=== PATIENT | male | born 1980 | race Caucasian/White ===

== ENCOUNTER 2018-12-04 11:02 | Emergency (ER) | payer BC, SELFPAY ==
[2018-12-04 11:03] VITALS: BP 156/106; PULSE 78; RESP 16; TEMP 36.7; O2SAT 99; BMI 31.4
--- NOTE | 2018-12-04 11:22 | EKG12_ITS ---
Test Reason : SYNCOPE Blood Pressure : / mmHG Vent. Rate : 079 BPM Atrial Rate : 079 BPM P-R Int : 148 ms QRS Dur : 096 ms QT Int : 382 ms P-R-T Axes : 030 031 008 degrees QTc Int : 438 ms Normal sinus rhythm Normal ECG Confirmed by MARTY EVANS ([id number]), digital editor CHANTALE UTBBS ([id number] on 12/09/2018 2:00:12 PM Referred By: LELAND Confirmed By:PALOMA EVANS
--- NOTE | 2018-12-04 11:32 | ED.VIS.GEN ---
History of Present Illness Chief Complaint: Syncope Informant: Patient Onset: Today Context: Sudden Onset Timing: Intermittent Quality: Near syncope Location: Work Current Severity: Mild Maximum Severity: Moderate Worsened by: Apparently nothing Relieved by: Nothing Associated Symptoms: Lightheaded, total body paresthesia and cramping left and right hand Narrative: Patient is a 38-year-old male with history of hypertension. He was prescribed an antihypertensive med which he discontinued since it was recalled. He was not restarted on new hypertensive med. He states he was in clean room. And walked out because he had to use the restroom, urinate. He became lightheaded had total body numbness followed by cramping of his right and left hand. Went to nurses station. Paramedics were called he was brought to the emergency department. Upon further questioning he reports indigestion/heartburn which is associated with eating spicy food. He denied headache, visual, ocular auditory symptoms. No trouble with speech or swallowing. Denies chest discomfort. He states he felt his heart pounding. He denies shortness of breath, difficulty breathing. He states he thought he may not have been getting a complete breath. He denies hematemesis, melena hematochezia. He denies history of PE or DVT. He denies leg pain, swelling discoloration. Prior similar symptoms: No Recent Illness/Hospitalization: No - Past Medical History (1) History of hypertension Status: Acute Past Medical History - Allergies and Home Meds Allergies/Adverse Reactions: Allergies bee venom protein (honey bee) Allergy (Verified 12/04/18 11:05) Anaphylaxis levofloxacin [From Levaquin] Allergy (Verified 12/04/18 11:06) Hives peanut Allergy (Verified 12/04/18 11:06) Hives Penicillins Allergy (Verified 12/04/18 11:05) Anaphylaxis shellfish derived Allergy (Verified 12/04/18 11:06) Hives Primary Care Physician: Buck Gipson, RECONCILIATION MACHINE OPERATOR-C [NON-STAFF] - Past Medical History: - - Hypertension Surgical History: no surgical history Lives: Spouse/ Significant Other Smoking Status: Former smoker Alcohol: Rare Review of Systems General: Denies: Chills, Fever, Sweats Eyes: Denies: Visual changes - bilaterally, Blurred Vision - bilaterally, Diplopia ENT: Denies: Rhinorrhea, Sore throat Cardiovascular: Denies: Chest pain, Palpitations Respiratory: Denies: Dyspnea, Cough, Dyspnea on exertion, Orthopnea, Paroxysmal nocturnal dyspnea Gastrointestinal: Denies: Abdominal pain, Nausea, Vomiting, Diarrhea, Melena, Hematochezia Genitourinary: Denies: Dysuria, Hematuria, Frequency Musculoskeletal: Denies: Back pain, Extremity Pain Skin: Denies: Rash, Abscess, Abrasions, Wounds Neurological: Reports: Weakness, Parasthesia. Denies: Headache, Numbness, -, - Psych: Reports: Anxiety. Denies: Depression Allergy: Denies: Uticaria, Swelling of the mouth Physical Exam Vital Signs/Narrative: Vital Signs Temp Pulse Resp BP Pulse Ox 12/04/18 11:03 98.1 F 78 16 156/106 H 99 Inital Vital Signs reviewed: Yes General: Well nourished, Well developed, No Acute Distress Head: Normocephalic, Atraumatic Eyes: Perrl, EOMI ENT: Moist mucous membranes, No rhinorrhea Neck: Supple, Nontender Cardiovascular: Regular rate, Regular rhythm, No murmurs, Normal S1, Normal S2 Respiratory: No distress, CTA bilaterally, Chest nontender Abdomen: Soft, Nontender, Nondistended, Normal bowel sounds Back: Nontender, Normal Inspection Extremities: Nontender, No edema, - - There is no asymmetry, swelling, discoloration, leg vein distention, palpable cords or tenderness along the distribution of the deep venous system. Skin: Normal color, No rash, No Trauma. Negative for: Cyanosis, Jaundice Neurological: Alert, Oriented x3, Cranial nerves II-XII grossly intact, Normal Strength, Normal Sensation Psychological: Normal affect, Normal Mood Diagnostic/Tx/Re-eval Laboratory Results 12/04/18 11:10 Troponin I < 0.015 - Rhythm Strip Rhythm Strip: Sinus Rhythm Rate: 76 Ectopy: None - Medical Decision Making Patient was placed on monitor and reveals a normal sinus rhythm with no ectopy. EKG was obtained to assess for ischemia or evidence of preexcitation syndrome. Because he complained of heartburn over the past week we will obtain troponin for atypical presentation of cardiac ischemia. Differential vasovagal near syncope, anxiety reaction, dysrhythmia and cardiac ischemia. Suspect heartburn is secondary to gastric etiology. With normal EKG, normal vital signs, normal troponin and PERC negative work-up for pulmonary embolus was not undertaken. Since EKG is normal troponin is normal no further work-up is needed for this presentation. Based on patient's description of total body paresthesia with cramping of his hands i.e. carpal spasm suspect he was hyperventilating. He does report he was anxious when this occurred. ED Disposition - Plan for ED Patient: Disposition: Home or Assisted Living Diagnosis: Syncope, near, Hyperventilation syndrome Instructions: ED Near Syncope Unkn Referrals: Buck Gipson NP-C [NON-STAFF] - 3-5 Days
[2018-12-04 12:26] VITALS: BP 140/100; PULSE 78; RESP 17; O2SAT 99
== END 2018-12-04 12:27 | disposition home or self-care (01) ==
PROVIDERS: Emergency Provider Emergency Medicine
DX: R55 Syncope and collapse (principal); F45.8 Other somatoform disorders; I10 Essential (primary) hypertension; Z87.891 Personal history of nicotine dependence
CPT/HCPCS: 84484; 93005; 99285; J7030; A4216

== ENCOUNTER 2018-12-11 18:19 | Observation (INO) | payer BC, SELFPAY ==
[2018-12-11 18:20] VITALS: BP 177/106; PULSE 89; RESP 17; TEMP 37.7; O2SAT 94; BMI 31.4
[2018-12-11 18:31] VITALS: O2SAT 100
--- NOTE | 2018-12-11 19:00 | CT_ITS ---
STUDY: CT BRAIN WITHOUT CONTRAST REASON FOR EXAM: Male, 38 years old. Dizziness. Chest pain. RADIATION DOSAGE (If Supplied By Facility): CTDIvol = ( 44.99 ) mGy, DLP = ( 762.36 ) mGycm TECHNIQUE: Transaxial CT imaging of the brain was performed without administration of intravenous contrast material. Individualized dose optimization techniques were used for this CT. COMPARISON: No relevant priors. FINDINGS: Normal soft tissue structures. Normal calvarium. Normal size ventricles and extra-axial spaces for the patient's age. Normal white matter tracts of the cerebral hemispheres. Normal basal ganglia and thalami. Normal brainstem. Normal cerebellum. There is no intracranial hemorrhage. There are no findings of an acute ischemic infarction. Normal visualized paranasal sinuses. CT/Brain/Head without Contrast IMPRESSION: Normal unenhanced CT scan of the brain. Electronically Signed: Prasanna Babb DO at 19:46 EDT Tel [phone], Service support ,
--- NOTE | 2018-12-11 19:01 | EKG12_ITS ---
Test Reason : PALPITATIONS Blood Pressure : / mmHG Vent. Rate : 075 BPM Atrial Rate : 075 BPM P-R Int : 144 ms QRS Dur : 096 ms QT Int : 374 ms P-R-T Axes : 032 035 016 degrees QTc Int : 417 ms Normal sinus rhythm Normal ECG Confirmed by MACARENA GAMEZ ([id number]), newspaper copy editor MARITA JEAN BAPTISTE ([id number]) on 12/16/2018 2:11:15 PM Referred By: Fernando Velazquez Confirmed By:MACARENA GAMEZ
--- NOTE | 2018-12-11 19:20 | RAD_ITS ---
STUDY: X-RAY CHEST REASON FOR EXAM: Male, 38 years old. Shortness of breath TECHNIQUE: Single AP portable view of the chest. COMPARISON: None. FINDINGS: The lungs are clear and expanded. There is no demonstrated pleural abnormality. Normal size heart. Normal mediastinum and sky. Normal visualized pulmonary arteries. Normal visualized aortic arch and descending thoracic aorta. Normal visualized thoracic spine. Normal visualized ribs, clavicles, and shoulders. There is no demonstrated abnormality of the visualized soft tissue structures of the upper abdomen. RAD/Chest 1 View (Portable) IMPRESSION: Normal x-ray examination of the chest. Electronically Signed: Suzie Rivers MD at 19:33 EDT , Service support ,
[2018-12-11 19:28] LABS: Anion Gap 9 (5-15); BUN 10 mg/dL (7-18); BUN/Creat Ratio 8.6 RATIO (10-20); Calcium,Total 9.2 mg/dL (8.5-10.1); Chloride 103 mmol/L (98-107); Creatinine, Serum 1.16 mg/dL (0.70-1.30); EST Glomerular Filtration Rate 74 mL/min (>60); Est Glom Filt Rate - Afr Amer 89 mL/min (>60); Estimated Creatinine Clearance 92.91 ml/min; Glucose 105 mg/dL (74-106); Potassium 3.8 mmol/L (3.5-5.1); Sodium Level 139 mmol/L (136-145)
[2018-12-11 20:00] LABS: Absolute Lymphocyte Count 1.77 X10^3/ul (0.83-4.51); Absolute Neutrophil Count 5.4 X10^3/uL (2.0-7.7); Basophil# 0.02 X10^3/uL; Basophil% 0.3 % (0-1); Eosinophil# 0.07 X10^3/uL; Eosinophils% 0.9 % (0-5); Hematocrit 47.9 % (40-54); Hemoglobin 16.6 g/dl (13.0-16.5); Lymphocyte # 1.77 X10^3/ul (4.0); Lymphocyte % 22.3 % (19-41); Mean Corp Hgb Conc 34.7 g/gl (32-36); Mean Corpuscular Hgb 30.6 pg (27.0-32.0); Mean Corpuscular Volume 88.4 fL (80-94); Mean Platelet Vol. 10.8 fl (6.2-12.0); Monocyte# 0.68 X10^3/uL; Monocyte% 8.6 % (0-10); Neutrophil # 5.37 X10^3/uL (2.7-7.7); Neutrophil % 67.8 % (47-70); Platelet Count 257 K/mm3 (150-450); RBC Distribution Width CV 13.1 % (11.6-14.6); RBC Distribution Width SD 42.1 fl (35.1-43.9); Red Blood Count 5.42 M/mm3 (4.6-6.2); White Blood Count 7.9 K/mm3 (4.4-11.0)
[2018-12-11 20:01] LABS: POSITIVE COUNT NO; POSITIVE DIFFERENTIAL NO; POSITIVE MORPHOLOGY NO
[2018-12-11 20:08] LABS: D-Dimer Quantitative (DVT/PE) 0.27 FEU/ug/m (0.27-0.49)
[2018-12-11 20:21] VITALS: BP 151/97; PULSE 86; RESP 17; O2SAT 97
--- NOTE | 2018-12-11 20:39 | PCM.HP.STD ---
Problem List (1) Chest pain Status: Acute Qualifiers: Chest pain type: unspecified Qualified Code(s): R07.9 - Chest pain, unspecified (2) Dysphagia Status: Chronic Qualifiers: Dysphagia type: unspecified Qualified Code(s): R13.10 - Dysphagia, unspecified (3) Allergic rhinitis Status: Suspected Qualifiers: Allergic rhinitis trigger: unspecified Allergic rhinitis seasonality: unspecified Qualified Code(s): J30.9 - Allergic rhinitis, unspecified (4) Allergic sinusitis Status: Suspected (5) ETOH abuse Status: Chronic (6) Anxiety and depression Status: Suspected (7) GERD (gastroesophageal reflux disease) Status: Chronic Qualifiers: Esophagitis presence: esophagitis presence not specified Qualified Code(s): K21.9 - Gastro-esophageal reflux disease without esophagitis History of Present Illness Date of Admission: 12/11/18 Chief Complaint: Palpitations, paresthesias, dyspnea. The patient is a 38 y/o M w/ PMHx: Obesity, HTN, GERD, Chronic dysphagia w/ prior endoscopies per Dr. Nevarez w/ suspected GERD as etiology but ongoing issues and noted history of notable post-nasal drip, frequent heavy drip at night, frequent need to clear his throat secondary to thickened secretions, congestion, sore throat, ETOH Abuse, admitted Anxiety and suspected Depression who presents to the [facility] ED on 12/11/18 with history of sneezing fit at approximately 11 AM while off loading approximate 15 pound boxes, noted sneeze at least 5 times with following this onset of posterior back discomfort described as a tightness between the shoulder blades which then radiated around to the left side of the chest with an anxious feeling and a sensation that he could not touch his breath with some mild paresthesias to that side to the upper extremity which he noted was not a discomfort could not quantify. He does state that he has been under a lot of stress and has been attempting to find a different position out of the company currently works in. He is frequently had neck strain and discomfort and his alcohol consumption is increased with his current job. Work-up in the ED included T 99.9, heart rate 89, BP initially 177/106--> repeat 151/97, respiratory rate 17, 97% on room air, unremarkable CBC without shift, normal d-dimer, workable BMP, troponin less than 0.015, EKG with SR without acute evidence of ischemia, CT head unremarkable, chest x-ray with no acute cardiopulmonary findings. Hospitalist added stat request for urine drug screen with urine catheterization if necessary. No medications were administered in the ED. Past Medical History Past Medical History (Chronic Problems): Chronic Problems Dysphagia (Chronic) ETOH abuse (Chronic) GERD (gastroesophageal reflux disease) (Chronic) Allergies bee venom protein (honey bee) Allergy (Verified 12/11/18 18:23) Anaphylaxis levofloxacin [From Levaquin] Allergy (Verified 12/11/18 18:23) Hives peanut Allergy (Verified 12/11/18 18:23) Hives Penicillins Allergy (Verified 12/11/18 18:23) Anaphylaxis shellfish derived Allergy (Verified 12/11/18 18:23) Hives Home Medications: Ambulatory Orders Medication Instructions Recorded Acetaminophen Liquid [Tylenol 320 mg PO Q4H PRN PRN 12/11/18 Liquid] DiphenhydrAMINE Liquid [Benadryl 10 ml PO BID PRN PRN 12/11/18 Liquid] Valsartan/Hydrochlorothiazide 160 mg PO DAILY 12/11/18 [Valsartan-Hctz 160-12.5 mg Tab] Surgical History: - - Appendectomy, left knee arthroscopic surgery. Psychiatric History: Anxiety, Depression Lives: Spouse/ Significant Other Smoking Status: Never smoker Tobacco Use: Non-smoker Alcohol: Heavy - Patient routinely has several beers to at least 1 bottle of wine sometimes daily. Drugs: None - *Family History Maternal History Items: - - Patient notes a maternal family history of hypertension, diabetes, valvular heart disease status post replacement as well as heavy tobacco use history. Paternal History Items: - - Patient notes a paternal family history of heart disease as well as lung cancer with tobacco use history. Sibling History Items: - - Patient has a brother with history of heart disease with PA at age 47. Review of Systems Constitutional: Reports: Malaise, Fatigue. Denies: Chills, Fever, Weight Change HEENT: Reports: Difficulty Swallowing, Post Nasal Drip, Sinus Congestion, Sinus Drainage, Sore Throat. Denies: Head Aches Cardiovascular: Reports: Chest Pain. Denies: Palpitations Respiratory: Reports: Cough. Denies: Shortness of breath at rest, Sputum production Gastrointestinal: Denies: Abdominal Pain, Nausea, Vomiting Genitourinary: Denies: Dysuria Musculoskeletal: Reports: Neck Pain, Shoulder Pain. Denies: Joint Pain, Joint Tenderness Skin: Denies: Rash, Wounds Neurological: Denies: Numbness, Tingling, Focal weakness Psychiatric: Reports: Anxiety, Depression. Denies: Homicidal Ideations, Suicidal Ideations Hematologic/ Lymphatic: Denies: Easy Bruising, Easy Bleeding VTE Information - Inpt Only VTE Present on Admission: No VTE Mechan Device Prophylaxis: SCD's VTE Pharm Prophylaxis ordered?: Yes Patient Problems: Active and Suspected Problems Chest pain (Acute) Allergic rhinitis (Suspected) Allergic sinusitis (Suspected) Anxiety and depression (Suspected) Subjective: Seated upright in the ED, fatigued appearance, no current chest discomfort, from discussions a myriad of complaints stemming from displeasure in his job with anxiety depression. Objective: Physical Examination: General: awake, alert, oriented x 3 and cooperative, seated upright in the ED bed in no apparent distress. Skin: normal color, turgor, no icterus, cyanosis. HEENT: AT/NC, EOMI, PERRLA, MMM, notable posterior oropharynx irritation, stippling, postnasal drip evident, no carotid bruits or JVD noted, neck strain. Lungs: CTA bilaterally, moderate effort, mild decrease BL bases, no rales, ronchi or wheezing. Heart: Regular rate and rhythm; no gallop, rub audible. Abdomen: soft, NTTP, ND, normal BS, no HSM. Extremities: no cyanosis, clubbing, or edema. Neurological: patient awake, alert, oriented x 3; cognitive function intact; pupils equally reactive to light and accomodation; cranial nerves II-XII grossly normal, moving all 4 extremities, no focal deficits, strength mildly globally decreased. Psychiatric: affect appears, fatigued, admission of depression and anxiety, no suicidal ideations. - Physical Exam Vital Signs Temp Pulse Resp BP Pulse Ox 99.9 F H 86 17 151/97 H 97 12/11/18 18:20 12/11/18 20:21 12/11/18 20:21 12/11/18 20:21 12/11/18 20:21 Oxygen Delivery Method Room Air Weight: 231 lb 14.821 oz Body Mass Index (BMI) 31.4 Laboratory Tests Past 24 Hrs 12/11/18 12/11/18 12/11/18 18:25 18:25 18:25 WBC 7.9 RBC 5.42 Hgb 16.6 H Hct 47.9 MCV 88.4 MCH 30.6 MCHC 34.7 RDW 13.1 RDW Differential 42.1 Plt Count 257 MPV 10.8 Immature Gran % (Auto) 0.100 Neut % (Auto) 67.8 Lymph % (Auto) 22.3 [place] % (Auto) 8.6 Eos % (Auto) 0.9 Baso % (Auto) 0.3 Absolute Neuts (auto) 5.4 Absolute Lymphs (auto) 1.77 Total Counted Not Reportable D-Dimer Quant (PE/DVT) 0.27 Sodium 139 Potassium 3.8 Chloride 103 Carbon Dioxide 27.0 Anion Gap 9 BUN 10 Creatinine 1.16 Estim Creat Clear Calc 92.91 Est GFR (MDRD) Af Amer 89 Est GFR (MDRD) Non-Af 74 BUN/Creatinine Ratio 8.6 L Glucose 105 Calcium 9.2 Troponin I < 0.015 Assessment/Plan All Active Problems History of hypertension (Acute) Chest pain (Acute) The patient is a 38 y/o M w/ PMHx: Obesity, HTN, GERD, Chronic dysphagia w/ prior endoscopies per Dr. Nevarez w/ suspected GERD as etiology but ongoing issues and noted history of notable post-nasal drip, frequent heavy drip at night, frequent need to clear his throat secondary to thickened secretions, congestion, sore throat, ETOH Abuse, admitted Anxiety and suspected Depression who presents to the [facility] ED on 12/11/18 with history of sneezing fit at approximately 11 AM while off loading approximate 15 pound boxes, noted sneeze at least 5 times with following this onset of posterior back discomfort described as a tightness between the shoulder blades which then radiated around to the left side of the chest with an anxious feeling and a sensation that he could not touch his breath with some mild paresthesias to that side to the upper extremity which he noted was not a discomfort could not quantify. (1) Chest Pain, Atypical: Work-up in the ED included T 99.9, heart rate 89, BP initially 177/106--> repeat 151/97, respiratory rate 17, 97% on room air, unremarkable CBC without shift, normal d-dimer, workable BMP, troponin less than 0.015, EKG with SR without acute evidence of ischemia, CT head unremarkable, chest x-ray with no acute cardiopulmonary findings. Will admit to PCU, place on a monitored bed to assure no acute myocardial infarction with serial cardiac enzymes and EKGs. If cardiac enzymes and repeat EKG is unremarkable we will pursue a.m. cardiac echo stress testing. NG, morphine. ASA allergy, defer trial plavix as notes severe reaction history to several agents. Low suspicion for actual cardiac etiology. (2) Chronic dysphagia suspected secondary to combination of GERD as well as uncontrolled allergic rhinitis/sinusitis: Notable post nasal drip visualized with stippling posterior oropharynx, will place on Claritin as well as ipratropium nasal inhalation with recommendation to follow-up with primary care physician for continued aggressive care. Speech therapy consulted. Will transition to modified diet in interim. (3) EtOH Abuse: Patient notes routine consumption of several beers to at least one bottle of wine more frequently than not daily. Discussed appropriate alcohol intake. Case management consulted for alcohol abuse he would also benefit from discussions for counseling will maintain on CIWA protocol, MVI, thiamine and folic acid. Mag and phosphorus levels requested. (4) Anxiety and Depression, suspected: Discussions patient depressive mood, anxious, very unhappy with his work, currently searching for other job, discussed healthy mannerisms to deal with these situations and is noted consultation with case management pending with need for alcohol intake counseling as well as therapy counseling. (5) Hypertension: Continue home regimen including valsartan, hydrochlorothiazide, PRN hydralazine. (6) GERD: PPI. (7) DVT prophylaxis: SCDs, Lovenox. Code Visit OBSV E&M: [id number] Initial observation care L3
--- NOTE | 2018-12-11 20:57 | ED.VISSUMM ---
- ER Visit Summary Date of Service: 12/11/18 Chief Complaint: Palpitations History of Present Illness: The patient is a 38 M presenting with palpitations. He states this started today suddenly earlier he started having heart racing and feeling like his heart was thumping. He has associated shortness of breath. He states he has chest tightness but no chest pain. He has had a mild cough. He states that his whole body feels numb. He later stated that his right side felt more numb than the left. He is not currently taking his blood pressure medication. Unable to tolerate pills. He recently was advised to crush them but has not started doing this yet. His brother had an [place] at age 47. He is not a smoker. Physical Examination: Vitals are stable. Patient is afebrile. Alert no acute distress. HEENT exam is unremarkable. Neck is supple. Lungs are clear and equal bilaterally. Heart is regular rate and rhythm. Abdomen is soft nontender nondistended. Extremities are unremarkable. Skin is warm and dry. No focal neurologic deficit. NIH 0 Remainder of exam is unremarkable. Emergency Department Course and Treatment: EKG is sinus rate of 75 with no acute ischemic changes. Chest x-ray shows no acute process. CT head shows no acute process. CBC, chemistries unremarkable. Troponin is negative. D-dimer negative. Discussed with the hospitalist for observation. Disposition: Observation Impression: Palpitations, dyspnea This note was generated with [employer] dictation software. It may contain incorrect words, spelling, and punctuation that were not noted in review of the chart prior to signing ED Disposition - Plan for ED Patient: Referrals: Buck Cardenas MD [Primary Care Provider] -
--- NOTE | 2018-12-11 21:00 | ED.DCSUM_ITS ---
- ER Visit Summary Date of Service: 12/11/18 Chief Complaint: Palpitations History of Present Illness: The patient is a 38 M presenting with palpitations. He states this started today suddenly earlier he started having heart racing and feeling like his heart was thumping. He has associated shortness of breath. He states he has chest tightness but no chest pain. He has had a mild cough. He states that his whole body feels numb. He later stated that his right side felt more numb than the left. He is not currently taking his blood pressure medication. Unable to tolerate pills. He recently was advised to crush them but has not started doing this yet. His brother had an [place] at age 47. He is not a smoker. Physical Examination: Vitals are stable. Patient is afebrile. Alert no acute distress. HEENT exam is unremarkable. Neck is supple. Lungs are clear and equal bilaterally. Heart is regular rate and rhythm. Abdomen is soft nontender nondistended. Extremities are unremarkable. Skin is warm and dry. No focal neurologic deficit. NIH 0 Remainder of exam is unremarkable. Emergency Department Course and Treatment: EKG is sinus rate of 75 with no acute ischemic changes. Chest x-ray shows no acute process. CT head shows no acute process. CBC, chemistries unremarkable. Troponin is negative. D-dimer negative. Discussed with the hospitalist for observation. Disposition: Observation Impression: Palpitations, dyspnea This note was generated with [employer] dictation software. It may contain incorrect words, spelling, and punctuation that were not noted in review of the chart prior to signing ED Disposition - Plan for ED Patient: Referrals: Buck Cardenas MD [Primary Care Provider] -
[2018-12-11 21:15] VITALS: BP 157/95; PULSE 88; RESP 11; O2SAT 97
[2018-12-11] MEDS: Aspirin 325 MG Tablet PO (21:21)
[2018-12-11 22:00] VITALS: PULSE 89
--- NOTE | 2018-12-11 22:05 | EKG12_ITS ---
Test Reason : MORNING EKG Blood Pressure : / mmHG Vent. Rate : 070 BPM Atrial Rate : 070 BPM P-R Int : 154 ms QRS Dur : 096 ms QT Int : 406 ms P-R-T Axes : 033 034 017 degrees QTc Int : 438 ms Normal sinus rhythm Normal ECG When compared with ECG of 11-DEC-2018 23:29, MANUAL COMPARISON REQUIRED, DATA IS UNCONFIRMED Confirmed by MARTY EVANS ([id number]), editorial intern MARITA JEAN BAPTISTE ([id number]) on 12/16/2018 2:23:42 PM Referred By: MELVIN Confirmed By:PALOMA EVANS
[2018-12-11 22:30] VITALS: BMI 29.9
[2018-12-11 22:36] LABS: Magnesium 2.2 mg/dL (1.6-2.6)
[2018-12-11 22:39] VITALS: BP 156/90; PULSE 94; RESP 18; TEMP 37.5; O2SAT 97
[2018-12-11] MEDS: 0.9% Normal Saline 1,000 ML 100 ML IV (23:20)
[2018-12-11] MEDS: Ipratropium Bromide 0.06% NASAL SPRAY 2 SPRAY NASAL (23:21)
[2018-12-11] MEDS: Pantoprazole Sodium 40 MG Tablet PO (23:31)
[2018-12-11] MEDS: Loratadine 10 MG Tablet PO (23:31)
[2018-12-11] MEDS: Na Biphos/Potassium Phosphate PACKET 1 PACKET PO (23:32)
[2018-12-12 00:46] LABS: Amphetamine Urine VISTA NEGATIVE (<1000 ng/mL); Barbiturate Urine VISTA NEGATIVE (< 200 ng/mL); Benzodiazepine Urine VISTA NEGATIVE (< 200 ng/mL); Cocaine Urine VISTA NEGATIVE (< 300 ng/mL); Ecstacy Urine VISTA NEGATIVE (< 500 ng/mL); Methadone Urine VISTA NEGATIVE (< 300 ng/mL); PCP Urine VISTA NEGATIVE (< 25 ng/mL); THC Urine VISTA NEGATIVE (< 50 ng/mL); Vista UDS pH Range 8
[2018-12-12 02:10] LABS: Hematocrit 46.3 % (40-54); Hemoglobin 15.8 g/dl (13.0-16.5); Mean Corp Hgb Conc 34.1 g/gl (32-36); Mean Corpuscular Hgb 29.5 pg (27.0-32.0); Mean Corpuscular Volume 86.5 fL (80-94); Mean Platelet Vol. 10.5 fl (6.2-12.0); Platelet Count 241 K/mm3 (150-450); RBC Distribution Width CV 13.2 % (11.6-14.6); RBC Distribution Width SD 41.8 fl (35.1-43.9); Red Blood Count 5.35 M/mm3 (4.6-6.2); White Blood Count 9.3 K/mm3 (4.4-11.0)
[2018-12-12 02:11] LABS: Scan Indicated on CBC? Y/N NO
[2018-12-12 02:17] LABS: International Normalized Ratio 1.1; Prothrombin Time (Protime)PT. 13.5 SECONDS (11.7-14.9)
[2018-12-12 02:18] LABS: Partial Thromboplast Time 29.6 Seconds (24.1-36.2)
[2018-12-12 02:50] LABS: ALB/GLOB Ratio 1.2 RATIO (0.9-2.4); AST(SGOT) 20 U/L (15-37); Alanine Aminotransfer ALT/SGPT 45 U/L (16-61); Albumin, Serum 3.8 g/dL (3.2-5.0); Alkaline Phosphatase 59 U/L (45-117); Anion Gap 7 (5-15); BUN 9 mg/dL (7-18); BUN/Creat Ratio 7.4 RATIO (10-20); Calcium,Total 8.3 mg/dL (8.5-10.1); Chloride 105 mmol/L (98-107); Cholesterol 228 mg/dL (200); Creatinine, Serum 1.21 mg/dL (0.70-1.30); EST Glomerular Filtration Rate 70 mL/min (>60); Est Glom Filt Rate - Afr Amer 85 mL/min (>60); Estimated Creatinine Clearance 89.07 ml/min; Globulin 3.3 g/dL (2.2-4.2); Glucose 103 mg/dL (74-106); High Density Lipoprotein 36 mg/dL; Protein, Total 7.1 g/dL (6.4-8.2); Sodium Level 139 mmol/L (136-145); T4 Free Direct 0.97 ng/dL (0.76-1.46); Thyroid Stim Hormone (TSH) 2.12 uIU/mL (0.358-3.74); Triglycerides 376 mg/dL; Very Low Density Lipoprotein 75 mg/dL (5-40)
[2018-12-12 03:00] VITALS: PULSE 64
[2018-12-12 04:27] VITALS: BP 135/88; PULSE 68; RESP 18; TEMP 36.8; O2SAT 98
[2018-12-12 05:40] VITALS: BP 157/88; PULSE 69; RESP 18; TEMP 36.7; O2SAT 97
[2018-12-12] MEDS: Ipratropium Bromide 0.06% NASAL SPRAY 2 SPRAY NASAL ×2 (05:44→13:48)
[2018-12-12] MEDS: Losartan Potassium 50 MG Tablet PO ×2 (05:44→05:48)
[2018-12-12] MEDS: Pantoprazole Sodium 40 MG Tablet PO ×2 (05:44→05:48)
--- NOTE | 2018-12-12 05:55 | EKG12_ITS ---
Test Reason : CP ADMIT Blood Pressure : / mmHG Vent. Rate : 079 BPM Atrial Rate : 079 BPM P-R Int : 152 ms QRS Dur : 094 ms QT Int : 392 ms P-R-T Axes : 035 039 009 degrees QTc Int : 449 ms Normal sinus rhythm Normal ECG When compared with ECG of 11-DEC-2018 18:26, MANUAL COMPARISON REQUIRED, DATA IS UNCONFIRMED Confirmed by MARTY EVANS ([id number]), web content editor MARITA JEAN BAPTISTE ([id number]) on 12/16/2018 2:24:27 PM Referred By: DR CHARLES Confirmed By:PALOMA EVANS
[2018-12-12 07:20] VITALS: PULSE 70
[2018-12-12 07:55] VITALS: O2SAT 98
--- NOTE | 2018-12-12 08:31 | NURSING ---
Patient to stress test at 0805.
[2018-12-12 09:28] VITALS: BP 147/89; PULSE 79; RESP 16; TEMP 36.8; O2SAT 95
[2018-12-12] MEDS: Thiamine Hydrochloride 100 MG Tablet PO (09:36)
[2018-12-12] MEDS: Multivitamins,Ther W-Minerals Tablet 1 TABLET PO (09:36)
[2018-12-12] MEDS: Folic Acid 1 MG Tablet PO (09:37)
[2018-12-12] MEDS: hydroCHLOROthiazide 12.5mg 12.5 MG PO (09:37)
[2018-12-12] MEDS: Loratadine 10 MG Tablet PO (09:37)
[2018-12-12] MEDS: Na Biphos/Potassium Phosphate PACKET 1 PACKET PO ×2 (09:38→13:50)
[2018-12-12] MEDS: 0.9% Normal Saline 1,000 ML 100 ML IV (09:44)
--- NOTE | 2018-12-12 11:31 | DCINST_ITS ---
- Discharge Diagnoses Current Active Problems: Current Active and Chronic Problems Chest pain (Acute) Dysphagia (Chronic) ETOH abuse (Chronic) GERD (gastroesophageal reflux disease) (Chronic) You will use the following diet at home:: Calorie/Carbohydrate Controlled (specify 1200, 1400, etc), Cardiac Discharge Activity: Return to Normal Activity Call your doctor if you observe: Shortness of breath, Dizziness, Fainting spells, Chest pain Allergies/Adverse Reactions: Allergies aspirin Allergy (Verified 12/11/18 21:22) Rash bee venom protein (honey bee) Allergy (Verified 12/11/18 18:23) Anaphylaxis levofloxacin [From Levaquin] Allergy (Verified 12/11/18 18:23) Hives peanut Allergy (Verified 12/11/18 18:23) Hives Penicillins Allergy (Verified 12/11/18 18:23) Anaphylaxis shellfish derived Allergy (Verified 12/11/18 18:23) Hives Medications to take at Discharge Acetaminophen Liquid [Tylenol Liquid] 320 mg PO Q4H PRN PRN 12/11/18 Valsartan/Hydrochlorothiazide [Valsartan-Hctz 160-12.5 mg Tab] 160 mg PO DAILY 12/11/18 Atorvastatin Calcium [Lipitor] 40 mg PO QHS #30 tablet 12/12/18 Ipratropium [place] 0.06% [ATROVENT NASAL SPRAY] 2 spray NASAL TID #1 nasal.sry 12/12/18 Loratadine [Claritin] 10 mg PO DAILY #30 tablet 12/12/18 The following prescriptions were given: Atorvastatin Calcium [Lipitor] 40 mg PO QHS #30 tablet Loratadine [Claritin] 10 mg PO DAILY #30 tablet Ipratropium [place] 0.06% [ATROVENT NASAL SPRAY] 2 spray NASAL TID #1 nasal.sry Orders to be completed after discharge: Cardiac Holter Monitor, Set-Up [[facility]] Location: None Selected Primary Care Physician: Buck Cardenas MD [Primary Care Provider] - Please follow up with your Primary Care Physician in: 1 Week Test Results: Test results from this visit will be discussed in further detail at your follow- up appointment, if applicable. Proposed Discharge Date: 12/12/18
--- NOTE | 2018-12-12 11:36 | DS.PCM_ITS ---
<Sigrid Limon - Last Filed: 12/12/18 11:54> Discharge Date and Diagnosis Date of Admission: 12/11/18 Date of Discharge: 12/12/18 - Primary Discharge Diagnosis Active and Suspected Problems 1. Chest pain, ACS ruled out 2. Chronic dysphagia, suspected secondary to GERD and allergic rhinitis 3. Hyperlipidemia 4. Hypertension 5. Suspected anxiety, depression 6. EtOH abuse 7. GERD - Secondary Discharge Diagnosis Chronic Problems Dysphagia (Chronic) ETOH abuse (Chronic) GERD (gastroesophageal reflux disease) (Chronic) Hospital Course and Treatment Imaging Results: Diagnostic Data Brain CT 12/11/18 19:00 IMPRESSION: Normal unenhanced CT scan of the brain. Electronically Signed: Prasanna Babb DO at 19:46 EDT Tel [phone], Service support , Chest X-Ray 12/11/18 19:20 IMPRESSION: Normal x-ray examination of the chest. Electronically Signed: Suzie Rivers MD at 19:33 EDT , Service support , Operations: None Procedures: - - Stress echo Summary of Care Provided: The patient is a 38 year old M admitted 12/11/2018 due to palpitations, atypical chest pain. 1. Chest pain, ACS ruled out-brain CT normal. Chest x-ray unremarkable. Troponin negative. EKG without ST-T changes. Patient underwent a stress echo which was negative for ischemia. Patient reports palpitations ongoing for the past several weeks. Telemetry without arrhythmias. Discharge on 24-hour Holter monitor, results to be sent to primary care physician. Suspect presenting symptoms due to anxiety as patient reports stress related to job. Follow-up with primary care physician in 1 week. 2. Chronic dysphagia, suspected secondary to GERD and allergic rhinitis- ST eval. Initiate PPI. Prior EGD with GI. Outpatient follow-up with GI if recurrent problems. 3. Hyperlipidemia-initiated on statin. Recommend repeat lipid panel in 4 to 6 weeks by primary care provider. 4. Hypertension-stable, continue valsartan/HCTZ regimen. 5. Suspected anxiety, depression-recommend follow-up with primary care physician to discuss medication regimen, outpatient counseling. 6. EtOH abuse-encourage alcohol cessation. 7. GERD-initiated on PPI. Patient seen and examined prior to discharge. Physical assessment as noted below. Patient is stable for discharge with follow up recommendations as noted above. This patient was seen by LILIBETH Mcknight under the supervision of Dr. Velazquez. - Physical Exam General: Alert, Oriented x3, Cooperative HEENT: Atraumatic, PERRLA, EOMI, Normocephalic Neck: Supple, No JVD, Negative Carotid Bruits Lungs: Clear to auscultation, Normal air movement Cardiovascular: Regular rate, Regular Rhythm, Normal S1, Normal S2, No murmurs Abdomen: Bowel Sounds Present, Soft, Non Tender, Non-Distended Extremities: No clubbing, No cyanosis, No edema, Capillary Refill Less than 3 Seconds Skin: No rashes, No breakdown Musculoskeletal: No Tenderness to Palpation of Joints or Extremities Lymphatic: No Cervical, Supraclavicular, or Inguinal Adenopathy Neurological: Cranial nerves II-XII grossly intact, Neuro grossly intact Psych/Mental Status: Normal Affect, Appropriate Vital Signs Temp Pulse Resp BP Pulse Ox 98.2 F 79 16 147/89 H 95 12/12/18 09:28 12/12/18 09:28 12/12/18 09:28 12/12/18 09:28 12/12/18 09:28 Oxygen Delivery Method Room Air Weight: 221 lb 5.506 oz Body Mass Index (BMI) 29.9 Intake and Output for Last 24 Hours 12/10/18 12/11/18 12/12/18 23:59 23:59 23:59 Intake Total 867 / 867 Output Total 250 / 250 Balance 617 / 617 Laboratory Tests Past 24 Hrs 12/11/18 12/11/18 12/11/18 18:25 18:25 18:25 WBC 7.9 RBC 5.42 Hgb 16.6 H Hct 47.9 MCV 88.4 MCH 30.6 MCHC 34.7 RDW 13.1 RDW Differential 42.1 Plt Count 257 MPV 10.8 Immature Gran % (Auto) 0.100 Neut % (Auto) 67.8 Lymph % (Auto) 22.3 [place] % (Auto) 8.6 Eos % (Auto) 0.9 Baso % (Auto) 0.3 Absolute Neuts (auto) 5.4 Absolute Lymphs (auto) 1.77 Total Counted Not Reportable PT INR APTT D-Dimer Quant (PE/DVT) 0.27 Sodium 139 Potassium 3.8 Chloride 103 Carbon Dioxide 27.0 Anion Gap 9 BUN 10 Creatinine 1.16 Estim Creat Clear Calc 92.91 Est GFR (MDRD) Af Amer 89 Est GFR (MDRD) Non-Af 74 BUN/Creatinine Ratio 8.6 L Glucose 105 Calcium 9.2 Phosphorus Magnesium Total Bilirubin AST ALT Alkaline Phosphatase Troponin I < 0.015 Total Protein Albumin Globulin Albumin/Globulin Ratio Triglycerides Cholesterol LDL Cholesterol VLDL Cholesterol HDL Cholesterol TSH Free T4 Urine Opiates Screen Urine Methadone Screen Ur Barbiturates Screen Ur Phencyclidine Scrn Ur Amphetamines Screen U Methamphetamin-MDMA U Benzodiazepines Scrn Urine Cocaine Screen U Cannabinoids Screen Ur Drug Screen Comment Ethyl Alcohol 12/11/18 12/11/18 12/11/18 18:25 18:25 22:54 WBC RBC Hgb Hct MCV MCH MCHC RDW RDW Differential Plt Count MPV Immature Gran % (Auto) Neut % (Auto) Lymph % (Auto) [place] % (Auto) Eos % (Auto) Baso % (Auto) Absolute Neuts (auto) Absolute Lymphs (auto) Total Counted PT INR APTT D-Dimer Quant (PE/DVT) Sodium Potassium Chloride Carbon Dioxide Anion Gap BUN Creatinine Estim Creat Clear Calc Est GFR (MDRD) Af Amer Est GFR (MDRD) Non-Af BUN/Creatinine Ratio Glucose Calcium Phosphorus 2.0 L Magnesium 2.2 Total Bilirubin AST ALT Alkaline Phosphatase Troponin I < 0.015 Total Protein Albumin Globulin Albumin/Globulin Ratio Triglycerides Cholesterol LDL Cholesterol VLDL Cholesterol HDL Cholesterol TSH Free T4 Urine Opiates Screen Urine Methadone Screen Ur Barbiturates Screen Ur Phencyclidine Scrn Ur Amphetamines Screen U Methamphetamin-MDMA U Benzodiazepines Scrn Urine Cocaine Screen U Cannabinoids Screen Ur Drug Screen Comment Ethyl Alcohol 9.0 12/11/18 12/12/18 12/12/18 23:50 02:01 02:01 WBC 9.3 RBC 5.35 Hgb 15.8 Hct 46.3 MCV 86.5 MCH 29.5 MCHC 34.1 RDW 13.2 RDW Differential 41.8 Plt Count 241 MPV 10.5 Immature Gran % (Auto) Neut % (Auto) Lymph % (Auto) [place] % (Auto) Eos % (Auto) Baso % (Auto) Absolute Neuts (auto) Absolute Lymphs (auto) Total Counted PT INR APTT D-Dimer Quant (PE/DVT) Sodium 139 Potassium 4.0 Chloride 105 Carbon Dioxide 27.0 Anion Gap 7 BUN 9 Creatinine 1.21 Estim Creat Clear Calc 89.07 Est GFR (MDRD) Af Amer 85 Est GFR (MDRD) Non-Af 70 BUN/Creatinine Ratio 7.4 L Glucose 103 Calcium 8.3 L Phosphorus Magnesium Total Bilirubin 0.50 AST 20 ALT 45 Alkaline Phosphatase 59 Troponin I Total Protein 7.1 Albumin 3.8 Globulin 3.3 Albumin/Globulin Ratio 1.2 Triglycerides 376 H Cholesterol 228 H LDL Cholesterol 117 VLDL Cholesterol 75 H HDL Cholesterol 36 L TSH 2.12 Free T4 0.97 Urine Opiates Screen NEGATIVE Urine Methadone Screen NEGATIVE Ur Barbiturates Screen NEGATIVE Ur Phencyclidine Scrn NEGATIVE Ur Amphetamines Screen NEGATIVE U Methamphetamin-MDMA NEGATIVE U Benzodiazepines Scrn NEGATIVE Urine Cocaine Screen NEGATIVE U Cannabinoids Screen NEGATIVE Ur Drug Screen Comment Ethyl Alcohol 12/12/18 12/12/18 02:01 02:01 WBC RBC Hgb Hct MCV MCH MCHC RDW RDW Differential Plt Count MPV Immature Gran % (Auto) Neut % (Auto) Lymph % (Auto) [place] % (Auto) Eos % (Auto) Baso % (Auto) Absolute Neuts (auto) Absolute Lymphs (auto) Total Counted PT 13.5 INR 1.1 APTT 29.6 D-Dimer Quant (PE/DVT) Sodium Potassium Chloride Carbon Dioxide Anion Gap BUN Creatinine Estim Creat Clear Calc Est GFR (MDRD) Af Amer Est GFR (MDRD) Non-Af BUN/Creatinine Ratio Glucose Calcium Phosphorus Magnesium Total Bilirubin AST ALT Alkaline Phosphatase Troponin I < 0.015 Total Protein Albumin Globulin Albumin/Globulin Ratio Triglycerides Cholesterol LDL Cholesterol VLDL Cholesterol HDL Cholesterol TSH Free T4 Urine Opiates Screen Urine Methadone Screen Ur Barbiturates Screen Ur Phencyclidine Scrn Ur Amphetamines Screen U Methamphetamin-MDMA U Benzodiazepines Scrn Urine Cocaine Screen U Cannabinoids Screen Ur Drug Screen Comment Ethyl Alcohol Discharge Diet: Low fat/ Low Cholesterol Discharge Activity: Return to Normal Activity Call your doctor if you observe: Shortness of breath, Dizziness, Fainting spells, Chest pain Home Medications: Medications to take at Discharge Acetaminophen Liquid [Tylenol Liquid] 320 mg PO Q4H PRN PRN 12/11/18 Valsartan/Hydrochlorothiazide [Valsartan-Hctz 160-12.5 mg Tab] 160 mg PO DAILY 12/11/18 Atorvastatin Calcium [Lipitor] 40 mg PO QHS #30 tablet 12/12/18 Ipratropium [place] 0.06% [ATROVENT NASAL SPRAY] 2 spray NASAL TID #1 nasal.sry 12/12/18 Loratadine [Claritin] 10 mg PO DAILY #30 tablet 12/12/18 Pantoprazole Sodium [Protonix] 40 mg PO DAILY #30 tablet 12/12/18 Following Prescrptions Were Given to Patient: Atorvastatin Calcium [Lipitor] 40 mg PO QHS #30 tablet Loratadine [Claritin] 10 mg PO DAILY #30 tablet Pantoprazole Sodium [Protonix] 40 mg PO DAILY #30 tablet Ipratropium [place] 0.06% [ATROVENT NASAL SPRAY] 2 spray NASAL TID #1 nasal.sry Other Amb Orders: Cardiac Holter Monitor, Set-Up [[facility]] Location: None Selected Primary Care Physician: Buck Cardenas MD [Primary Care Provider] - Please follow up with your Primary Care Physician in: 1 Week Disposition: Home Minutes spent on discharge:: 35 Patient Condition:: Stable Medical Necessity - Tobacco Use Smoking Status: Never smoker Tobacco Use: Non-smoker Meaningful Use Info Meaningful Use Diagnoses (Choose all that apply): None applicable <Fernando Velazquez - Last Filed: 12/12/18 14:48> Discharge Date and Diagnosis - Secondary Discharge Diagnosis Chronic Problems Dysphagia (Chronic) ETOH abuse (Chronic) GERD (gastroesophageal reflux disease) (Chronic) Hospital Course and Treatment Imaging Results: 12/12/18 05:55 Stress Test Echo w/o Contrast [ECHO] Routine Summary of Care Provided: The patient is a 38 year old M with history of chronic dysphagia secondary to GERD and postnasal drip syndrome admitted with chest pain which is mainly localized to upper mid thoracic spine. Patient had fall on his upper back many years ago and gets upper back pain, low intensity once or twice a week but has been more painful in last 3 days. Furthermore, patient also reported ongoing palpitation for several weeks. Telemetry did not show any significant arrhythmia. Patient had stress echo which was negative for stress-induced ischemia as per EKG and echocardiographic criteria. TSH and free T4 normal. Fa sting lipid profile shows elevated triglycerides 376, total cholesterol 228, LDL 117 and low HDL 36. Started on atorvastatin 40 mg daily and advised to repeat fasting profile in 6 weeks. Patient blood pressure also elevated and is on antihypertensive medication, valsartan/HCTZ. Patient has chronic dysphagia and advised to follow-up with GI. Discharge medication reconciliation done. Discharge follow-up instructions completed. Discharge process discussed with the patient and his near the bedside and all questions were answered to patient's satisfaction. - Physical Exam Vital Signs Temp Pulse Resp BP Pulse Ox 98.2 F 79 16 147/89 H 95 12/12/18 09:28 12/12/18 09:28 12/12/18 09:28 12/12/18 09:28 12/12/18 09:28 Oxygen Delivery Method Room Air Weight: 221 lb 5.506 oz Body Mass Index (BMI) 29.9 Intake and Output for Last 24 Hours 12/10/18 12/11/18 12/12/18 23:59 23:59 23:59 Intake Total 1435 / 1435 Output Total 250 / 250 Balance 1185 / 1185 Laboratory Tests Past 24 Hrs 12/11/18 12/11/18 12/11/18 18:25 18:25 18:25 WBC 7.9 RBC 5.42 Hgb 16.6 H Hct 47.9 MCV 88.4 MCH 30.6 MCHC 34.7 RDW 13.1 RDW Differential 42.1 Plt Count 257 MPV 10.8 Immature Gran % (Auto) 0.100 Neut % (Auto) 67.8 Lymph % (Auto) 22.3 [place] % (Auto) 8.6 Eos % (Auto) 0.9 Baso % (Auto) 0.3 Absolute Neuts (auto) 5.4 Absolute Lymphs (auto) 1.77 Total Counted Not Reportable PT INR APTT D-Dimer Quant (PE/DVT) 0.27 Sodium 139 Potassium 3.8 Chloride 103 Carbon Dioxide 27.0 Anion Gap 9 BUN 10 Creatinine 1.16 Estim Creat Clear Calc 92.91 Est GFR (MDRD) Af Amer 89 Est GFR (MDRD) Non-Af 74 BUN/Creatinine Ratio 8.6 L Glucose 105 Calcium 9.2 Phosphorus Magnesium Total Bilirubin AST ALT Alkaline Phosphatase Troponin I < 0.015 Total Protein Albumin Globulin Albumin/Globulin Ratio Triglycerides Cholesterol LDL Cholesterol VLDL Cholesterol HDL Cholesterol TSH Free T4 Urine Opiates Screen Urine Methadone Screen Ur Barbiturates Screen Ur Phencyclidine Scrn Ur Amphetamines Screen U Methamphetamin-MDMA U Benzodiazepines Scrn Urine Cocaine Screen U Cannabinoids Screen Ur Drug Screen Comment Ethyl Alcohol 12/11/18 12/11/18 12/11/18 18:25 18:25 22:54 WBC RBC Hgb Hct MCV MCH MCHC RDW RDW Differential Plt Count MPV Immature Gran % (Auto) Neut % (Auto) Lymph % (Auto) [place] % (Auto) Eos % (Auto) Baso % (Auto) Absolute Neuts (auto) Absolute Lymphs (auto) Total Counted PT INR APTT D-Dimer Quant (PE/DVT) Sodium Potassium Chloride Carbon Dioxide Anion Gap BUN Creatinine Estim Creat Clear Calc Est GFR (MDRD) Af Amer Est GFR (MDRD) Non-Af BUN/Creatinine Ratio Glucose Calcium Phosphorus 2.0 L Magnesium 2.2 Total Bilirubin AST ALT Alkaline Phosphatase Troponin I < 0.015 Total Protein Albumin Globulin Albumin/Globulin Ratio Triglycerides Cholesterol LDL Cholesterol VLDL Cholesterol HDL Cholesterol TSH Free T4 Urine Opiates Screen Urine Methadone Screen Ur Barbiturates Screen Ur Phencyclidine Scrn Ur Amphetamines Screen U Methamphetamin-MDMA U Benzodiazepines Scrn Urine Cocaine Screen U Cannabinoids Screen Ur Drug Screen Comment Ethyl Alcohol 9.0 12/11/18 12/12/18 12/12/18 23:50 02:01 02:01 WBC 9.3 RBC 5.35 Hgb 15.8 Hct 46.3 MCV 86.5 MCH 29.5 MCHC 34.1 RDW 13.2 RDW Differential 41.8 Plt Count 241 MPV 10.5 Immature Gran % (Auto) Neut % (Auto) Lymph % (Auto) [place] % (Auto) Eos % (Auto) Baso % (Auto) Absolute Neuts (auto) Absolute Lymphs (auto) Total Counted PT INR APTT D-Dimer Quant (PE/DVT) Sodium 139 Potassium 4.0 Chloride 105 Carbon Dioxide 27.0 Anion Gap 7 BUN 9 Creatinine 1.21 Estim Creat Clear Calc 89.07 Est GFR (MDRD) Af Amer 85 Est GFR (MDRD) Non-Af 70 BUN/Creatinine Ratio 7.4 L Glucose 103 Calcium 8.3 L Phosphorus Magnesium Total Bilirubin 0.50 AST 20 ALT 45 Alkaline Phosphatase 59 Troponin I Total Protein 7.1 Albumin 3.8 Globulin 3.3 Albumin/Globulin Ratio 1.2 Triglycerides 376 H Cholesterol 228 H LDL Cholesterol 117 VLDL Cholesterol 75 H HDL Cholesterol 36 L TSH 2.12 Free T4 0.97 Urine Opiates Screen NEGATIVE Urine Methadone Screen NEGATIVE Ur Barbiturates Screen NEGATIVE Ur Phencyclidine Scrn NEGATIVE Ur Amphetamines Screen NEGATIVE U Methamphetamin-MDMA NEGATIVE U Benzodiazepines Scrn NEGATIVE Urine Cocaine Screen NEGATIVE U Cannabinoids Screen NEGATIVE Ur Drug Screen Comment Ethyl Alcohol 12/12/18 12/12/18 02:01 02:01 WBC RBC Hgb Hct MCV MCH MCHC RDW RDW Differential Plt Count MPV Immature Gran % (Auto) Neut % (Auto) Lymph % (Auto) [place] % (Auto) Eos % (Auto) Baso % (Auto) Absolute Neuts (auto) Absolute Lymphs (auto) Total Counted PT 13.5 INR 1.1 APTT 29.6 D-Dimer Quant (PE/DVT) Sodium Potassium Chloride Carbon Dioxide Anion Gap BUN Creatinine Estim Creat Clear Calc Est GFR (MDRD) Af Amer Est GFR (MDRD) Non-Af BUN/Creatinine Ratio Glucose Calcium Phosphorus Magnesium Total Bilirubin AST ALT Alkaline Phosphatase Troponin I < 0.015 Total Protein Albumin Globulin Albumin/Globulin Ratio Triglycerides Cholesterol LDL Cholesterol VLDL Cholesterol HDL Cholesterol TSH Free T4 Urine Opiates Screen Urine Methadone Screen Ur Barbiturates Screen Ur Phencyclidine Scrn Ur Amphetamines Screen U Methamphetamin-MDMA U Benzodiazepines Scrn Urine Cocaine Screen U Cannabinoids Screen Ur Drug Screen Comment Ethyl Alcohol Code Visit OBSV E&M: 23419 Observation care discharge
--- NOTE | 2018-12-12 13:15 | CASEMGMT ---
SW met with patient, introduced self and role at [facility]. SW asked if it was okay for SW to talk in front of patient's regarding sensitive information. Patient was okay with this. SW spoke with him about his alcohol use and his current stressors. He was open to SW giving him resources. Tricia HANEY MSW
== END 2018-12-12 11:31 | disposition home or self-care (01) ==
LOC: ED 19:10 → PCU 21:18
PROVIDERS: Admitting Provider Family Medicine; Emergency Provider Emergency Medicine; Visit Provider Internal Medicine
DX: R07.89 Other chest pain (principal); R13.10 Dysphagia, unspecified; K21.9 Gastro-esophageal reflux disease without esophagitis; I10 Essential (primary) hypertension; E66.9 Obesity, unspecified; Z68.30 Body mass index [BMI] 30.0-30.9, adult; Z71.3 Dietary counseling and surveillance; F10.10 Alcohol abuse, uncomplicated; Z79.899 Other long term (current) drug therapy; Z82.49 Family history of ischemic heart disease and other diseases of the circulatory system
CPT/HCPCS: 36415; 70450; 71045; 80048; 80053; 80061; 80307; 80320; 83735; 84100; 84439; 84443; 84484; 85025; 85027; 85379; 85610; 85730; 92610; 93005; 93017; 93350; 96360; 96361; 99218; 99285; J7030; G0378; G0480

== ENCOUNTER → 2018-12-12 14:57 | Outpatient (CLI) | payer BC, SELFPAY ==
[2018-12-11 22:30] VITALS: BMI 29.9
== END ==
PROVIDERS: Referring Provider Internal Medicine; Visit Provider Internal Medicine
DX: R00.0 Tachycardia, unspecified (principal)
CPT/HCPCS: 93225; 93226

== ENCOUNTER → 2019-06-30 14:32 | Outpatient (CLI) | payer BC, SELFPAY ==
[2019-06-30 15:54] LABS: Absolute Lymphocyte Count 1.94 X10^3/uL (0.83-4.51); Absolute Neutrophil Count 5.4 X10^3/uL (2.0-7.7); Basophil# 0.04 X10^3/uL; Basophil% 0.5 % (0-1); Eosinophil# 0.04 X10^3/uL; Eosinophils% 0.5 % (0-5); Hemoglobin 15.8 g/dL (13.0-16.5); Lymphocyte # 1.94 X10^3/ul (4.0); Mean Corp Hgb Conc 32.9 g/dL (32-36); Mean Corpuscular Hgb 29.3 pg (27.0-32.0); Mean Corpuscular Volume 88.9 fL (80-94); Mean Platelet Vol. 11.1 fl (6.2-12.0); Monocyte# 0.65 X10^3/uL; NRBC Flagged by Analyzer 0 % (0-5); Neutrophil % 66.8 % (47-70); Platelet Count 232 K/mm3 (150-450); RBC Distribution Width CV 12.5 % (11.6-14.6); RBC Distribution Width SD 40.9 fl (35.1-43.9); White Blood Count 8.1 K/mm3 (4.4-11.0)
[2019-06-30 16:06] LABS: Erythrocyte Sedimentation Rate 6 mm/hr (0-15)
[2019-06-30 17:10] LABS: ALB/GLOB Ratio 1.4 RATIO (0.9-2.4); AST(SGOT) 15 U/L (15-37); Alanine Aminotransfer ALT/SGPT 35 U/L (16-61); Albumin, Serum 4.4 g/dL (3.2-5.0); Alkaline Phosphatase 55 U/L (45-117); Anion Gap 7 (5-15); BUN 8 mg/dL (7-18); BUN/Creat Ratio 7.6 RATIO (10-20); CPK Total, Creatine Kinase 162 U/L (39-308); CRP < 2.90 mg/L (0.0-3.0); Calcium,Total 9.1 mg/dL (8.5-10.1); Chloride 106 mmol/L (98-107); Creatinine, Serum 1.05 mg/dL (0.70-1.30); EST Glomerular Filtration Rate 83 mL/min (>60); Est Glom Filt Rate - Afr Amer 100 mL/min (>60); Free T3 3.5 pg/mL (2.18-3.98); Globulin 3.1 g/dL (2.2-4.2); Glucose 92 mg/dL (74-106); Magnesium 1.9 mg/dL (1.6-2.6); Potassium 3.6 mmol/L (3.5-5.1); Prealbumin 41.8 mg/dL (20.0-40.0); Protein, Total 7.5 g/dL (6.4-8.2); Sodium Level 141 mmol/L (136-145); T4 Free Direct 0.82 ng/dL (0.76-1.46); Thyroid Stim Hormone (TSH) 1.45 uIU/mL (0.358-3.74)
[2019-07-02 13:22] LABS: ANTINUCLEAR ANTIBODIES DIRECT Negative (Negative)
== END ==
PROVIDERS: Referring Provider Family Medicine; Visit Provider Family Medicine
DX: R13.10 Dysphagia, unspecified (principal); M25.50 Pain in unspecified joint; R53.83 Other fatigue; D64.9 Anemia, unspecified; M79.10 Myalgia, unspecified site; R63.4 Abnormal weight loss
CPT/HCPCS: 36415; 80053; 82550; 83735; 84134; 84439; 84443; 84481; 85025; 85652; 86038; 86140; 86225; 86235

== ENCOUNTER → 2021-01-22 08:40 | Outpatient (CLI) | payer BC, SELFPAY ==
--- NOTE | 2021-01-22 09:15 | MRI_ITS ---
STUDY: MRI RIGHT ELBOW REASON FOR EXAM: Male, 40 years old. RIGHT elbow pain s/p injury,swelling, incomplete ROM TECHNIQUE: Standardized fat and water weighted pulse sequences were obtained in all 3 orthogonal planes. COMPARISON: None. FINDINGS: Normal radio-capitellum articulation. Normal radial collateral ligamentous complex. Low-grade partial-thickness tear of the common extensor tendons (coronal images 14 through 16 series 6). Moderate common extensor tendinosis with peritendinitis. Normal ulnotrochlear articulation. Normal ulnar collateral ligamentous complex. Mild common flexor tendinosis. Normal cubital tunnel and ulnar nerve. Normal biceps tendon and distal insertion. Normal lacertus fibrosis. Normal brachialis musculotendinous insertion. Normal triceps tendon and teno-osseous insertion. Normal olecranon process. No acute fracture, dislocation or cortical destruction. Mild posterior soft tissue swelling/olecranon bursitis. No significant joint effusion. No solid or lipomatous lesions. MRI/Upper Ext Joint Only(Routine) IMPRESSION: Partial thickness common extensor tendon tear with underlying tendinosis/peritendinitis Mild common flexor tendinosis without tear Mild posterior soft tissue swelling/olecranon bursitis Electronically Signed: Yony Massey DO at 11:47 EDT Tel , Service support ,
== END ==
PROVIDERS: PCP Family Medicine; Referring Provider Family Medicine; Visit Provider Family Medicine
DX: M24.221 Disorder of ligament, right elbow (principal); M25.521 Pain in right elbow
CPT/HCPCS: 73221

== ENCOUNTER 2021-02-08 11:44 | Emergency (ER) | payer BC, SELFPAY ==
[2021-02-08 11:45] VITALS: BP 175/114; PULSE 86; RESP 16; TEMP 37.1; O2SAT 95; BMI 30.4
--- NOTE | 2021-02-08 11:51 | EX.ED.DYSGE1 ---
HPI History of Present Illness Chief Complaint: Allergic Reaction Narrative Narrative: 40-year-old male presenting with a a wasp sting on his left hand. This happened about 15 minutes ago. 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 He states that his EpiPen's are . He does not have any symptoms except for pain locally on the left hand where the wasp stung him. PFSH PFSH Home Medications acetaminophen 320 mg PO Q4H PRN PRN 12/11/18 [History Last Taken 12/11/18] valsartan-hydrochlorothiazide 160 mg PO DAILY 12/11/18 [History Last Taken Unknown] atorvastatin 40 mg PO QHS #30 tablet 12/12/18 [Rx Last Taken Unknown] ipratropium bromide 2 spray NASAL TID #1 nasal.sry 12/12/18 [Rx Last Taken Unknown] loratadine [Allergy Relief (loratadine)] 10 mg PO DAILY #30 tablet 12/12/18 [Rx Last Taken Unknown] pantoprazole 40 mg PO DAILY #30 tablet 12/12/18 [Rx Last Taken Unknown] epinephrine [EpiPen 2-Jovan] 0.3 mg IM Q10M PRN #2 ea 02/08/21 [Rx Last Taken Unknown] Allergy/AdvReac Type Severity Reaction Status Date / Time aspirin Allergy Rash Verified 02/08/21 11:45 bee venom protein (honey bee) Allergy Anaphylaxis Verified 02/08/21 11:45 levofloxacin [From Levaquin] Allergy Hives Verified 02/08/21 11:45 peanut Allergy Hives Verified 02/08/21 11:45 Penicillins Allergy Anaphylaxis Verified 02/08/21 11:45 shellfish derived Allergy Hives Verified 02/08/21 11:45 Social History Smoking Status: Never smoker ROS ROS ED Constitutional Constitutional ED: Denies chills, fever(s) or subjective Eyes Eyes: Denies blurry vision or diplopia ENT ENT ED: Reports other Details: No throat tightening or tongue swelling ; Denies rhinorrhea or sore throat Cardiovascular Cardiovascular: Denies chest pain, palpitations or racing heartbeat Respiratory/Chest Respiratory/Chest: Denies cough or dyspnea Gastrointestinal Gastrointestinal: Denies abdominal pain, nausea or vomiting Genitourinary Genitourinary ED: Denies dysuria or hematuria Integumentary Reports Abrasions and other Details: Wasp sting to left hand ; Denies rash Neurologic Neurologic: Denies headache(s) or paresthesias EXAM Physical Exam Const Vital Signs: 02/08/21 11:45 Temperature 98.7 F Temperature Source Temporal Pulse Rate 86 Respiratory Rate 16 Blood Pressure 175/114 H Blood Pressure Mean 134 Pulse Ox 95 Oxygen Delivery Method Room Air HEENT Reports moist mucous membranes Negative for trauma Eyes PERRL and EOMs intact bilaterally Neck supple General: other No stridor Resp normal respiratory effort and clear to auscultation bilaterally Auscultation: Negative for wheezes Cardio regular rate and regular rhythm Extremity Extremity Narrative: Insect sting to left dorsum of hand. Localized erythema and swelling Neuro oriented x3 and CN's II-XII intact bilaterally Sensorium / Orientation: alert Psych mental status grossly normal Skin Skin Narrative: Staying as described above MDM MDM MDM Narrative Medical decision making narrative: Patient presented a concern that he may have an allergic reaction to the sting. He states it was a wasp and he is allergic to bees. He was monitored in the ED and had no reaction. At this point I feel he is able to be discharged home. Patient was given a refill on his EpiPen's. Patient stable at this time. Impression: 1 insect sting left hand Discharge Plan Triage Chief Complaint: Allergic Reaction ED Provider: Jack Brunson Dx/Rx/DC Orders Instructions: ED Insect Sting, Local Reaction Prescriptions: New epinephrine [EpiPen 2-Jovan] 0.3 mg/0.3 mL auto-injector 0.3 mg IM Q10M PRN (Reason: anaphylaxis) Qty: 2 RF: 0 No Action valsartan-hydrochlorothiazide 1 EACH tablet 160 mg PO DAILY RF: 0 acetaminophen 160 MG/5 ML suspension 320 mg PO Q4H PRN PRN (Reason: Pain) RF: 0 ipratropium bromide 1 SPRAY spray,non-aerosol 2 spray NASAL TID Qty: 1 RF: 0 loratadine [Allergy Relief (loratadine)] 10 MG tablet 10 mg PO DAILY Qty: 30 RF: 0 atorvastatin 40 MG tablet 40 mg PO QHS Qty: 30 RF: 0 pantoprazole 40 MG tablet 40 mg PO DAILY Qty: 30 RF: 0 Primary Care Provider: Radha Ken Referrals: Radha Ken DO [Primary Care Provider] - Disposition Disposition: Home, Self Care
[2021-02-08 12:37] VITALS: RESP 18; O2SAT 99
== END 2021-02-08 12:37 | disposition home or self-care (01) ==
PROVIDERS: Emergency Provider Student in an Organized Health Care Education/Training Program; PCP Family Medicine
DX: T63.461A Toxic effect of venom of wasps, accidental (unintentional), initial encounter (principal); M79.642 Pain in left hand; Y92.9 Unspecified place or not applicable
CPT/HCPCS: 99282

== ENCOUNTER → 2021-07-18 | Outpatient (CLI) | payer BC, SELFPAY | END | disposition home or self-care (01) | LOC: LABSPEC 13:47 | PROVIDERS: PCP Family Medicine; Visit Provider Family Medicine | DX: U07.1 COVID-19 (principal) | CPT/HCPCS: 87633; 87635; U0005; U0003 ==

== ENCOUNTER 2021-07-20 13:18 | Outpatient (CLI) | payer BC, SELFPAY ==
[2021-07-20 13:21] VITALS: BP 129/93; PULSE 90; RESP 16; TEMP 37.4; O2SAT 98; BMI 30.4
[2021-07-20] MEDS: 0.9% Saline Lock 10 ML Syringe IV (13:22)
[2021-07-20 14:30] VITALS: BP 144/87; PULSE 77; RESP 16; TEMP 36.9; O2SAT 98
[2021-07-20 15:17] VITALS: BP 129/86; PULSE 76; RESP 16; TEMP 36.8; O2SAT 97
== END 2021-07-20 15:26 | disposition home or self-care (01) ==
LOC: MS3OUT 13:18 → MS3 13:19
PROVIDERS: PCP Family Medicine; Referring Provider Nurse Practitioner Adult Health; Visit Provider Nurse Practitioner Adult Health
DX: Z23 Encounter for immunization (principal); U07.1 COVID-19
CPT/HCPCS: J7050; M0245; Q0245; A4216

== ENCOUNTER 2021-08-10 07:16 | Emergency (ER) | payer BC, SELFPAY ==
[2021-08-10 07:17] VITALS: BP 164/119; PULSE 95; RESP 18; TEMP 36.6; O2SAT 99; BMI 30.4
--- NOTE | 2021-08-10 07:26 | EKG12_ITS ---
Test Reason : HTN/PALPS Blood Pressure : / mmHG Vent. Rate : 089 BPM Atrial Rate : 089 BPM P-R Int : 148 ms QRS Dur : 088 ms QT Int : 366 ms P-R-T Axes : 046 065 014 degrees QTc Int : 445 ms Normal sinus rhythm with sinus arrhythmia Normal ECG Confirmed by LISSETTE PALUMBO, LAURO ([id number]), editor publications NORMA BANKS ([id number]) on 08/12/2021 9:59:18 AM Referred By: CHINTAN Confirmed By:LAURO MCLAUGHLIN MD
--- NOTE | 2021-08-10 07:27 | EDS_ITS ---
HPI History of Present Illness Chief Complaint: Hypertension Detail of Chief Complaint: High blood pressure that he noticed this morning Informant: patient Narrative Narrative: Patient presents to the emergency department with concern about blood pressure. Patient states that he woke up feeling sweaty and had numbness and tingling in his hands and his feet so he checked his blood pressure and noted that it was elevated. The highest he got this morning was 190/110. Normally his blood pressure runs about 145/80. Patient states that he used to be on valsartan hand for blood pressure over a year ago but he lost weight and his blood pressure improved so they took him off of it. He denies any chest pain. He denies shortness of breath. Patient tells me he had COVID-19 infection about 3 weeks ago. Patient has remote history of anxiety. Prior similar symptoms: Yes PFSH [facility] Medical History (Updated 08/10/21 @ 08:[address] Zafar Jordan, DO) GERD (gastroesophageal reflux disease) Hypertension Home Medications epinephrine [EpiPen 2-Jovan] 0.3 mg IM Q10M PRN #2 ea 02/08/21 [Rx Last Taken Unknown] fluticasone propionate 1 spray INTRANASAL DAILY 07/20/21 [History Last Taken Unknown] omeprazole 40 mg PO DAILY 07/20/21 [History Last Taken Unknown] valsartan-hydrochlorothiazide 0.5 tab PO DAILY #30 tab 08/10/21 [Rx Last Taken Unknown] Allergy/AdvReac Type Severity Reaction Status Date / Time aspirin Allergy Rash Verified 08/10/21 07:20 bee venom protein (honey bee) Allergy Anaphylaxis Verified 08/10/21 07:20 levofloxacin [From Levaquin] Allergy Hives Verified 08/10/21 07:20 peanut Allergy Hives Verified 08/10/21 07:20 Penicillins Allergy Anaphylaxis Verified 08/10/21 07:20 shellfish derived Allergy Hives Verified 08/10/21 07:20 Surgical History (Updated 08/10/21 @ 07:36 by Alison Maciel) History of appendectomy Social History Smoking Status: Never smoker ROS ROS ED Constitutional Constitutional ED: Reports systems reviewed and no addt'l complaints, except as documented; Denies body ache(s), change in weight or chills Eyes Eyes: Denies acute decrease in peripheral vision, change in vision, double vision or loss of vision ENT ENT ED: Reports none; Denies ear pain, lip swelling, loss taste/smell, neck pain, otalgia or sore throat Cardiovascular Cardiovascular: Reports none; Denies abdominal pain, chest pain with activity, leg edema, lightheadedness, palpitations, rapid heart rate or syncope Respiratory/Chest Respiratory/Chest: Reports none; Denies change in mental status, dry cough, dyspnea, hemoptysis, shortness of breath at rest or shortness of breath with exertion Gastrointestinal Gastrointestinal: Reports none; Denies abdominal pain, change in stool character, diarrhea, hematemesis, hematochezia, melena, rectal bleeding or vomiting Genitourinary Genitourinary ED: Reports none; Denies abdominal discomfort, anuria, dysuria, genital pain or polyuria Musculoskeletal Musculoskeletal: Reports none; Denies arthralgias, back pain, difficulty walking, extremity pain, muscle weakness or myalgias Integumentary Reports none; Denies abscess or rash Neurologic Neurologic: Reports none and paresthesias; Denies abnormal gait, confusion, focal weakness, frequent falls, headache(s), loss of vision, numbness, radicular pain, vertigo or weakness Psychiatric Psychiatric: Reports systems reviewed and no addt'l complaints, except as documented and none; Denies behavioral changes, confusion, difficulty concentrating, hallucinations, suicidal ideation, tactile hallucinations or visual hallucinations Endocrine Endocrinology: Denies none, cold intolerance, excessive sweating, fatigue or heat intolerance Hematologic/Lymphatic Hematologic/Lymphatic: Reports none; Denies anemia, easy bleeding or easy bruising Allergic/Immunologic Allergic/Immunologic ED: Denies as per HPI, none, lip swelling, mouth swelling, throat swelling, tongue swelling or hives EXAM Physical Exam Const Vital Signs: 08/10/21 07:17 08/10/21 07:34 Temperature 98 F Temperature Source Temporal Pulse Rate 95 89 Respiratory Rate 18 17 Respiratory Effort Normal Non-Labored Respiratory Pattern Normal Blood Pressure 164/119 H 174/101 H Blood Pressure Mean 134 125 Pulse Ox 99 100 Oxygen Delivery Method Room Air Room Air Positive well nourished and well developed General Appearance ED: well developed and NAD HEENT Reports TM's clear and moist mucous membranes normocephalic and atraumatic; Negative for trauma or tenderness Tympanic Membrane ED: Yes TM's clear Eyes PERRL and EOMs intact bilaterally General Eye ED: Negative for pale conjunctiva or scleral icterus Neck no lymphadenopathy, supple and no JVD General: Negative for tenderness Chest Wall inspection of chest normal and palpation of chest normal Chest: Negative for tenderness Resp normal respiratory effort and clear to auscultation bilaterally Effort and Inspection: Negative for respiratory distress or pain with movement Auscultation: Negative for rhonchi, wheezes or diminished lung sounds Cardio regular rate, regular rhythm, S1 normal heart sound, S2 normal heart sound and no murmurs Peripheral Pulses: pulses 2+ throughout GI normal to inspection, nondistended, normoactive bowel sounds, soft to palpation, non-tender, non-distended and no masses Back/Spine no CVA tenderness and no thoracic nor lumbar tenderness Extremity normal to inspection General Extremety ED: Negative for edema General Extremity: Negative for edema Neuro oriented x3, CN's II-XII intact bilaterally, no sensory deficits noted and gait normal Sensorium / Orientation: awake, alert, oriented to person, oriented to place and oriented to time Motor Exam: strength 5/5 throughout and strength abnormal Psych mental status grossly normal Skin no rashes or lesions noted and no wounds MDM MDM MDM Narrative Medical decision making narrative: IV established on arrival. Patient placed on a monitoring and evaluation advisor. He was given a milligram of Ativan for suspicion of some anxiety component. His blood pressure improved in the 150s over low 100s. I discussed case with patient as well as his primary care physician Dr. Denson who asked that I restart patient's valsartan hand and she will see him in the office next week. Patient advised return if severe headache, chest pain, shortness of breath, or condition should worsen anyway. Lab Data Attestation: I reviewed the patient's lab results. Labs: Laboratory Results - last 24 hr 08/10/21 08/10/21 07:32 07:32 WBC 8.1 RBC 5.50 Hgb 16.1 Hct 48.6 MCV 88.4 MCH 29.3 MCHC 33.1 RDW Std Deviation 41.8 RDW Coeff of Jamshid 13.0 Plt Count 265 MPV 9.9 Immature Gran % (Auto) 0.200 Neut % (Auto) 49.9 Lymph % (Auto) 34.6 [place] % (Auto) 12.3 H Eos % (Auto) 1.9 Baso % (Auto) 1.1 H Absolute Neuts (auto) 4.0 Absolute Lymphs (auto) 2.79 Nucleated RBC % 0 Sodium 139 Potassium 3.7 Chloride 101 Carbon Dioxide 27.0 Anion Gap 11 BUN 12 Creatinine 1.18 Estim Creat Clear Calc 88.60 Est GFR (MDRD) Af Amer 87 Est GFR (MDRD) Non-Af 72 BUN/Creatinine Ratio 10.2 Glucose 119 H Calcium 9.4 Troponin I High Sens 5 EKG Initial EKG: Attestation: I personally reviewed and interpreted this EKG as follows: Comments: Sinus rhythm with a ventricular rate of 89 bpm with occasional PACs Discharge Plan Triage Chief Complaint: Hypertension ED Provider: Zafar Jordan Dx/Rx/DC Orders Clinical Impression: Hypertension, Anxiety Instructions: ED Anxiety Reaction, ED Hypertension, Established Prescriptions: New valsartan-hydrochlorothiazide 160-12.5 mg tablet 0.5 tab PO DAILY Qty: 30 RF: 0 No Action epinephrine [EpiPen 2-Jovan] 0.3 mg/0.3 mL auto-injector 0.3 mg IM Q10M PRN (Reason: anaphylaxis) Qty: 2 RF: 0 omeprazole 40 mg capsule,delayed release(DR/EC) 40 mg PO DAILY RF: 0 fluticasone propionate 50 mcg/actuation spray,suspension 1 spray INTRANASAL DAILY RF: 0 Primary Care Provider: Radha Ken Referrals: Radha Ken DO [Primary Care Provider] - 5-7 Days Disposition Disposition: Home, Self Care
[2021-08-10 07:34] VITALS: BP 174/101; PULSE 89; RESP 17; O2SAT 100
[2021-08-10 07:42] LABS: Absolute Lymphocyte Count 2.79 X10^3/uL (0.83-4.51); Basophil# 0.09 X10^3/uL; Basophil% 1.1 % (0-1); Eosinophil# 0.15 X10^3/uL; Eosinophils% 1.9 % (0-5); Hematocrit 48.6 % (40-54); Hemoglobin 16.1 g/dL (13.0-16.5); Lymphocyte # 2.79 X10^3/ul (0.83-4.51); Lymphocyte % 34.6 % (19-41); Mean Corp Hgb Conc 33.1 g/dL (32-36); Mean Corpuscular Hgb 29.3 pg (27.0-32.0); Mean Corpuscular Volume 88.4 fL (80-94); Mean Platelet Vol. 9.9 fl (6.2-12.0); Monocyte# 0.99 X10^3/uL; Monocyte% 12.3 % (0-10); NRBC Flagged by Analyzer 0 % (0-5); Neutrophil # 4.03 X10^3/uL (2.7-7.7); Neutrophil % 49.9 % (47-70); Platelet Count 265 K/mm3 (150-450); RBC Distribution Width SD 41.8 fl (35.1-43.9); White Blood Count 8.1 K/mm3 (4.4-11.0)
[2021-08-10] MEDS: LORazepam 2 MG/ML Syringe 1 MG IV (07:42)
[2021-08-10 07:59] LABS: Anion Gap 11 (5-15); BUN 12 mg/dL (7-18); BUN/Creat Ratio 10.2 RATIO (10-20); Calcium,Total 9.4 mg/dL (8.5-10.1); Chloride 101 mmol/L (98-107); Creatinine, Serum 1.18 mg/dL (0.70-1.30); EST Glomerular Filtration Rate 72 mL/min (>60); Est Glom Filt Rate - Afr Amer 87 mL/min (>60); Glucose 119 mg/dL (74-106); Potassium 3.7 mmol/L (3.5-5.1); Sodium Level 139 mmol/L (136-145); Troponin-I HS 5 pg/mL (3.0-78.0)
[2021-08-10 08:26] VITALS: BP 157/105; PULSE 88; RESP 16; O2SAT 94
== END 2021-08-10 08:27 | disposition home or self-care (01) ==
PROVIDERS: Emergency Provider Emergency Medicine; PCP Family Medicine; Visit Provider Emergency Medicine
DX: I10 Essential (primary) hypertension (principal); F41.9 Anxiety disorder, unspecified; K21.9 Gastro-esophageal reflux disease without esophagitis; Z79.899 Other long term (current) drug therapy
CPT/HCPCS: 80048; 84484; 85025; 93005; 96374; 99284

== ENCOUNTER → 2022-04-08 | Outpatient (CLI) | payer BC, SELFPAY ==
[2022-04-08 08:43] LABS: Absolute Lymphocyte Count 2.31 X10^3/uL (0.83-4.51); Absolute Neutrophil Count 4.7 X10^3/uL (2.0-7.7); Basophil% 1.2 % (0-1); Eosinophil# 0.12 X10^3/uL; Eosinophils% 1.5 % (0-5); Hematocrit 51.8 % (40-54); Hemoglobin 17.2 g/dL (13.0-16.5); Lymphocyte # 2.31 X10^3/ul (0.83-4.51); Lymphocyte % 28.7 % (19-41); Mean Corp Hgb Conc 33.2 g/dL (32-36); Mean Corpuscular Hgb 29.9 pg (27.0-32.0); Mean Corpuscular Volume 89.9 fL (80-94); Mean Platelet Vol. 10.8 fl (6.2-12.0); Monocyte# 0.85 X10^3/uL; Monocyte% 10.5 % (0-10); NRBC Flagged by Analyzer 0 % (0-5); Neutrophil # 4.66 X10^3/uL (2.7-7.7); Neutrophil % 57.9 % (47-70); Platelet Count 272 K/mm3 (150-450); RBC Distribution Width CV 12.9 % (11.6-14.6); RBC Distribution Width SD 42.2 fl (35.1-43.9); Red Blood Count 5.76 M/mm3 (4.6-6.2); White Blood Count 8.1 K/mm3 (4.4-11.0)
[2022-04-08 09:42] LABS: AST(SGOT) 36 U/L (15-37); Alanine Aminotransfer ALT/SGPT 74 U/L (16-61); Albumin, Serum 3.9 g/dL (3.2-5.0); Alkaline Phosphatase 64 U/L (45-117); Anion Gap 9 (5-15); BUN 11 mg/dL (7-18); BUN/Creat Ratio 9.2 RATIO (10-20); Calcium,Total 8.9 mg/dL (8.5-10.1); Chloride 102 mmol/L (98-107); Cholesterol 253 mg/dL (200); EST Glomerular Filtration Rate 70 mL/min (>60); Est Glom Filt Rate - Afr Amer 85 mL/min (>60); Globulin 3.8 g/dL (2.2-4.2); Glucose 98 mg/dL (74-106); High Density Lipoprotein 37 mg/dL; PSA,Total - Annual Screen 0.44 ng/mL (0.00-4.00); Potassium 4.2 mmol/L (3.5-5.1); Protein, Total 7.7 g/dL (6.4-8.2); Sodium Level 138 mmol/L (136-145); Triglycerides 447 mg/dL; Uric Acid 9.4 mg/dL (3.5-7.2)
== END | disposition home or self-care (01) ==
LOC: LAB 07:53
PROVIDERS: PCP Family Medicine; Referring Provider Family Medicine; Visit Provider Family Medicine
DX: E78.5 Hyperlipidemia, unspecified (principal); M10.9 Gout, unspecified; Z12.5 Encounter for screening for malignant neoplasm of prostate; Z51.81 Encounter for therapeutic drug level monitoring
CPT/HCPCS: 36415; 80053; 80061; 84153; 84550; 85025; G0103

== ENCOUNTER → 2022-09-15 | Outpatient (CLI) | payer BC, SELFPAY ==
[2022-09-15 12:52] LABS: ALB/GLOB Ratio 1.3 RATIO (0.9-2.4); AST(SGOT) 17 U/L (15-37); Alanine Aminotransfer ALT/SGPT 29 U/L (16-61); Albumin, Serum 4.4 g/dL (3.2-5.0); Alkaline Phosphatase 59 U/L (45-117); Anion Gap 8 (5-15); BUN 16 mg/dL (7-18); BUN/Creat Ratio 15.1 RATIO (10-20); Calcium,Total 9.5 mg/dL (8.5-10.1); Chloride 104 mmol/L (98-107); Cholesterol 234 mg/dL (200); Creatinine, Serum 1.06 mg/dL (0.70-1.30); EST Glomerular Filtration Rate 81 mL/min (>60); Est Glom Filt Rate - Afr Amer 97 mL/min (>60); Globulin 3.5 g/dL (2.2-4.2); Glucose 97 mg/dL (74-106); High Density Lipoprotein 40 mg/dL; Potassium 4.3 mmol/L (3.5-5.1); Protein, Total 7.9 g/dL (6.4-8.2); Sodium Level 140 mmol/L (136-145); Triglycerides 231 mg/dL; Uric Acid 7.6 mg/dL (3.5-7.2); Very Low Density Lipoprotein 46 mg/dL (5-40)
== END | disposition home or self-care (01) ==
LOC: BFHLAB 08:35
PROVIDERS: PCP Family Medicine; Visit Provider Family Medicine
DX: E78.5 Hyperlipidemia, unspecified (principal); M10.9 Gout, unspecified; Z51.81 Encounter for therapeutic drug level monitoring
CPT/HCPCS: 36415; 80053; 80061; 84550

== ENCOUNTER 2022-11-18 22:54 | Emergency (ER) | payer BC, SELFPAY ==
[2022-11-18 22:54] VITALS: BP 173/109; PULSE 85; RESP 16; TEMP 36.6; O2SAT 100; BMI 29.9
--- NOTE | 2022-11-18 23:00 | RAD_ITS ---
STUDY: X-RAY - LEFT HAND, ATTENTION 5 FINGER REASON FOR EXAM: Male, 42 years old. FOREIGN BODY TECHNIQUE: 3 view(s) of the finger were obtained. COMPARISON: None. FINDINGS: Normal metacarpal head. Normal metacarpophalangeal joint. Normal proximal phalanx. Normal middle phalanx. Normal distal phalanx. Normal proximal interphalangeal joint. Normal distal interphalangeal joint. 2.5 cm linear opacity in the volar soft tissues at the level of the middle phalanx from a medial approach consistent with a known catfish jalen. RAD/Finger(s) Min 2 Views IMPRESSION: known catfish jalen in the volar soft tissues. No acute fracture or dislocation.. Electronically Signed: Buck Mccall MD at 23:26 EDT ,
--- NOTE | 2022-11-19 01:40 | EX.ED.DYSGE1 ---
HPI History of Present Illness Chief Complaint: Foreign Body Informant: patient Narrative Narrative: Patient is a 42-year-old male [id number]. Unknown when last tetanus was. Presenting for injury to his left pinky finger. Patient was cleaning a catfish that he had caught and a jalen became lodged in his pinky finger. He has pain. Patient was worried it could be in his bone. He came in for further evaluation. No other complaints or injuries reported. [facility] Medical History GERD (gastroesophageal reflux disease) Hypertension Home Medications epinephrine 0.3 mg/0.3 mL injection, auto-injector (EpiPen 2-Jovan) 0.3 mg (0.3 mL) IM Q10M PRN anaphylaxis #2 ea 02/08/21 [Rx Last Taken Unknown] omeprazole 40 mg capsule,delayed release 40 mg PO DAILY 07/20/21 [History Last Taken Unknown] doxycycline hyclate 100 mg capsule 100 mg PO BID #14 caps 11/19/22 [Rx Last Taken Unknown] Allergy/AdvReac Type Severity Reaction Status Date / Time aspirin Allergy Rash Verified 11/18/22 22:56 bee venom protein (honey bee) Allergy Anaphylaxis Verified 11/18/22 22:56 levofloxacin [From Levaquin] Allergy Hives Verified 11/18/22 22:56 peanut Allergy Hives Verified 11/18/22 22:56 Penicillins Allergy Anaphylaxis Verified 11/18/22 22:56 shellfish derived Allergy Hives Verified 11/18/22 22:56 Surgical History History of appendectomy Social History Smoking Status: Never smoker ROS ROS ED Constitutional Constitutional ED: Denies chills or fever(s) Gastrointestinal Gastrointestinal: Denies nausea or vomiting Musculoskeletal Musculoskeletal: Reports other Details: left hand pain Integumentary Reports other Details: Foreign body in the left pinky finger Neurologic Neurologic: Denies paresthesias or weakness EXAM Physical Exam Const Vital Signs: 11/18/22 22:54 Temperature 98 F Temperature Source Temporal Pulse Rate 85 Respiratory Rate 16 Blood Pressure 173/109 H Blood Pressure Mean 130 Pulse Ox 100 Oxygen Delivery Method Room Air Positive well nourished and well developed General Appearance ED: well developed and NAD HEENT Reports moist mucous membranes Negative for trauma Eyes PERRL and EOMs intact bilaterally Chest Wall inspection of chest normal Resp normal respiratory effort Extremity Extremity Narrative: Localized tenderness to the left pinky finger at the middle phalanges at where the foreign body is. No other deformity of the extremity appreciated. Range of motion is preserved. General Extremety ED: Negative for edema General Extremity: Negative for edema Neuro oriented x3 and no sensory deficits noted Sensorium / Orientation: alert Motor Exam: Negative for general weakness Skin Skin Narrative: Puncture wound to the dorsal aspect of the left fifth finger over the middle phalanges with jalen sticking out of the finger consistent with a catfish jalen. No active bleeding at this time. No other wounds or injuries appreciated. MDM MDM MDM Narrative Medical decision making narrative: Patient valuated foreign body to his left pinky finger. Tetanus is updated. X-ray obtained interpreted myself as well as radiology shows a catfish jalen in the volar soft tissue with no acute fracture or bony abnormalities. Digital nerve block using 1% lidocaine with epinephrine performed and foreign bodies removed. No acute complications. It is then soaked in Hibiclens and sterile saline. Patient empirically is placed on doxycycline. Is counseled on return precautions as well as signs of infection. Patient counseled to avoid direct sun exposure while on the doxycycline to prevent sunburn. Counseled alternate ibuprofen and Tylenol for pain. Discharged home in stable condition. Radiography Diagnostic Testing: Clinical Impression(s) from Imaging Studies Finger X-Ray 11/18/22 23:00 IMPRESSION: known catfish jalen in the volar soft tissues. No acute fracture or dislocation.. Electronically Signed: Buck Mccall MD at 23:26 EDT , Discharge Plan Triage Chief Complaint: Foreign Body ED Provider: Janet Ken Dx/Rx/DC Orders Clinical Impression: Foreign body of finger of left hand Prescriptions: New doxycycline hyclate 100 mg capsule 100 mg PO BID Qty: 14 0RF No Action epinephrine [EpiPen 2-Jovan] 0.3 mg/0.3 mL auto-injector 0.3 mg IM Q10M PRN (Reason: anaphylaxis) Qty: 2 0RF Rx Instructions: for 2 doses omeprazole 40 mg capsule,delayed release(DR/EC) 40 mg PO DAILY Primary Care Provider: Radha Ken Referrals: Radha Ken DO [Primary Care Provider] - Activity Restrictions/Additional Instructions: Alternate ibuprofen and Tylenol for pain. Return if you have worsening pain or signs of infection. Avoid sun exposure and wear sunscreen while taking the antibiotics as they can increase sensitivity to sunlight. Disposition Disposition: Home, Self Care
[2022-11-19] MEDS: Diphth,Pertuss(Acell),Tet Vac 0.5 ML Vial IM (02:10)
[2022-11-19] MEDS: Lidocaine 1% (20 ml mdv) 20 ML Vial INFILT (02:11)
[2022-11-19] MEDS: Doxycycline 100 MG CAPSULE PO (03:05)
[2022-11-19 03:09] VITALS: PULSE 75; RESP 16; O2SAT 98
== END 2022-11-19 03:10 | disposition home or self-care (01) ==
PROVIDERS: Emergency Provider Emergency Medicine; PCP Family Medicine; Visit Provider Emergency Medicine
DX: S60.457A Superficial foreign body of left little finger, initial encounter (principal); I10 Essential (primary) hypertension; W23.0XXA Caught, crushed, jammed, or pinched between moving objects, initial encounter; Z23 Encounter for immunization
CPT/HCPCS: 73140; 90471; 90715; 99283

== ENCOUNTER → 2023-11-24 | Outpatient (CLI) | payer BC, SELFPAY ==
[2023-11-24 10:55] LABS: Absolute Lymphocyte Count 1.94 X10^3/uL (0.83-4.51); Absolute Neutrophil Count 3.6 X10^3/uL (2.0-7.7); Basophil# 0.06 X10^3/uL; Basophil% 0.9 % (0-1); Eosinophil# 0.09 X10^3/uL; Eosinophils% 1.4 % (0-5); Hematocrit 50.9 % (40-54); Hemoglobin 16.6 g/dL (13.0-16.5); Lymphocyte # 1.94 X10^3/ul (0.83-4.51); Lymphocyte % 30.4 % (19-41); Mean Corp Hgb Conc 32.6 g/dL (32-36); Mean Platelet Vol. 11.1 fl (6.2-12.0); Monocyte# 0.62 X10^3/uL; Monocyte% 9.7 % (0-10); NRBC Flagged by Analyzer 0 % (0-5); Neutrophil # 3.63 X10^3/uL (2.7-7.7); Neutrophil % 56.8 % (47-70); Platelet Count 272 K/mm3 (150-450); RBC Distribution Width CV 12.7 % (11.6-14.6); RBC Distribution Width SD 41.4 fl (35.1-43.9); Red Blood Count 5.72 M/mm3 (4.6-6.2); White Blood Count 6.4 K/mm3 (4.4-11.0)
[2023-11-24 11:15] LABS: ALB/GLOB Ratio 1.2 RATIO (0.9-2.4); AST(SGOT) 24 U/L (15-37); Alanine Aminotransfer ALT/SGPT 50 U/L (16-61); Albumin, Serum 4.1 g/dL (3.2-5.0); Alkaline Phosphatase 56 U/L (45-117); Anion Gap 5 (5-15); BUN 11 mg/dL (7-18); BUN/Creat Ratio 10.8 RATIO (10-20); Calcium,Total 9.1 mg/dL (8.5-10.1); Chloride 104 mmol/L (98-107); Cholesterol 270 mg/dL (200); Creatinine, Serum 1.02 mg/dL (0.70-1.30); EST Glomerular Filtration Rate 84 mL/min (>60); Est Glom Filt Rate - Afr Amer 101 mL/min (>60); Globulin 3.3 g/dL (2.2-4.2); Glucose 94 mg/dL (74-106); High Density Lipoprotein 39 mg/dL; Protein, Total 7.4 g/dL (6.4-8.2); Sodium Level 138 mmol/L (136-145); Triglycerides 369 mg/dL; Uric Acid 7.6 mg/dL (3.5-7.2); Very Low Density Lipoprotein 74 mg/dL (5-40)
== END | disposition home or self-care (01) ==
LOC: LAB 08:53
PROVIDERS: PCP Family Medicine; Referring Provider Family Medicine; Visit Provider Family Medicine
DX: Z00.00 Encounter for general adult medical examination without abnormal findings (principal); M10.9 Gout, unspecified; Z51.81 Encounter for therapeutic drug level monitoring
CPT/HCPCS: 36415; 80053; 80061; 84550; 85025

== ENCOUNTER 2024-01-14 09:53 | Emergency (ER) | payer BC, SELFPAY ==
[2024-01-14 09:55] VITALS: BP 187/111; PULSE 76; RESP 19; TEMP 36.3; O2SAT 100; BMI 30.4
--- NOTE | 2024-01-14 10:18 | ED.VIS.CHEST ---
HPI History of Present Illness Chief Complaint: Chest Pain Informant: patient Onset/Context/Timing Onset: Today Activity at onset: sudden Timing: Continuous Quality: Positive for Dull Location: Substernal Worsened By: Exertion (Standing, walking) Relieved By: Nothing Associated Symptoms: Positive for Dyspnea, Lightheadedness and Palpitations; Negative for Nausea, Vomiting, Diaphoresis, Cough, Fever or Acid Reflux Narrative Narrative: Patient presents with chest pain that began today. Patient states it began rather suddenly. Patient describes his pain as dull. Patient states it is over the lower substernal area. Patient states it is worse with standing and walking. Patient states nothing makes it better. Patient admits to some lightheadedness and palpitations with the pain. Patient also admits to some shortness of breath. Patient admits to some tingling into his left arm. Patient denies any nausea or vomiting. Patient denies any diaphoresis. Patient admits to some pain in the left side of his neck and pain in his back. Patient also admits to mild headache. CVD Risk Factors: Positive for Hypertension and Family History 1' </=55; Negative for Diabetes, Hypercholesterolemia or Smoking PE Risk Factors: Negative for Recent Travel/Surgery, Recent Immobilization, Prior DVT or PE, Cancer or OCP + Smoking + >/=35 [facility] Medical History (Updated 01/14/24 @ 13:[address] Yony Mcfadden, DO) GERD (gastroesophageal reflux disease) Hypertension Home Medications ?Medication ?Instructions ?Recorded ?Last Taken ?Type epinephrine 0.3 mg/0.3 mL 0.3 mg (0.3 mL) IM Q10M PRN 02/08/21 Unknown Rx injection, auto-injector (EpiPen anaphylaxis #2 ea 2-Jovan) omeprazole 40 mg capsule,delayed 40 mg PO DAILY 07/20/21 Unknown History release fluticasone propionate 50 spray intranasal 01/14/24 Unknown History mcg/actuation nasal spray,suspension Allergy/AdvReac Type Severity Reaction Status Date / Time aspirin Allergy Rash Verified 01/14/24 09:54 bee venom protein (honey bee) Allergy Anaphylaxis Verified 01/14/24 09:54 levofloxacin (From Levaquin) Allergy Hives Verified 01/14/24 09:54 peanut Allergy Hives Verified 01/14/24 09:54 Penicillins Allergy Anaphylaxis Verified 01/14/24 09:54 shellfish derived Allergy Hives Verified 01/14/24 09:54 Surgical History (Updated 01/14/24 @ 11:[address] Yony Mcfadden DO) Hx of tooth extraction S/P ORIF (open reduction internal fixation) fracture Hx of knee surgery History of appendectomy Social History Smoking Status: Former smoker ROS ROS ED Constitutional Constitutional ED: Denies chills or fever(s) Eyes Eyes: Denies blurry vision or change in vision ENT ENT ED: Reports rhinorrhea; Denies sore throat Cardiovascular Cardiovascular: Reports chest pain and palpitations Respiratory/Chest Respiratory/Chest: Reports dyspnea; Denies cough Gastrointestinal Gastrointestinal: Denies abdominal pain, nausea or vomiting Genitourinary Genitourinary ED: Reports urinary frequency; Denies dysuria or hematuria Musculoskeletal Musculoskeletal: Reports back pain and neck pain Integumentary Denies abscess or rash Neurologic Neurologic: Reports headache(s); Denies weakness Allergic/Immunologic Allergic/Immunologic ED: Denies mouth swelling or urticaria EXAM Physical Exam Const Vital Signs: 01/14/24 09:55 01/14/24 10:20 01/14/24 11:08 Temperature 97.4 F L Temperature Source Temporal Pulse Rate 76 71 Respiratory Rate 19 H 16 Blood Pressure 187/111 H 164/108 H Blood Pressure Mean 136 126 Pulse Ox 100 96 98 Oxygen Delivery Method Room Air Room Air 01/14/24 12:00 01/14/24 12:56 Temperature Temperature Source Pulse Rate 79 75 Respiratory Rate 16 18 Blood Pressure 150/100 H 163/103 H Blood Pressure Mean 116 123 Pulse Ox 96 98 Oxygen Delivery Method Room Air Room Air Positive well nourished and well developed General Appearance ED: well developed and NAD HEENT Reports moist mucous membranes Neck supple and no JVD Resp normal respiratory effort and clear to auscultation bilaterally Cardio regular rate and regular rhythm GI soft to palpation, non-tender and non-distended Extremity normal to inspection General Extremety ED: Negative for edema or tenderness General Extremity: Negative for edema Neuro oriented x3, CN's II-XII intact bilaterally and no sensory deficits noted Sensorium / Orientation: awake and alert Motor Exam: strength 5/5 throughout Psych mental status grossly normal Heart Score History: Moderately Suspicious ECG: Normal Age: </= 45 years Risk Factors: 1 or 2 Risk Factors Troponin: </= Normal Limit Score: 2 MDM MDM MDM Narrative Medical decision making narrative: Differential diagnosis includes cardiac dysrhythmia, cardiac ischemia, pulmonary embolism, pneumonia, pneumothorax, musculoskeletal pain, and anxiety. EKG will be obtained to assess for cardiac dysrhythmia and cardiac ischemia. Chest x-ray will be obtained to assess for pneumonia and pneumothorax. CBC will be obtained to assess for leukocytosis and anemia. Basic metabolic profile will be obtained to assess for electrolyte abnormality and renal function. High-sensitivity troponin will be obtained to assess for cardiac ischemia. PT with INR and PTT will be obtained to assess for coagulopathy. 2-hour repeat high-sensitivity troponin will be obtained to assess for ongoing cardiac ischemia. Lab Data Attestation: I reviewed the patient's lab results. Lab results narrative: CBC was reviewed and was within normal limits. Basic metabolic profile was reviewed and was within normal limits. PT was INR and PTT were reviewed and were within normal limits. Initial high-sensitivity troponin was reviewed and was normal at 5. D-dimer was reviewed and was elevated at 0.95. 2-hour repeat high-sensitivity troponin was reviewed and was normal at 5. Labs: Laboratory Results - last 24 hr 01/14/24 01/14/24 10:05 12:30 WBC 8.1 RBC 5.65 Hgb 16.7 H Hct 50.2 MCV 88.8 MCH 29.6 MCHC 33.3 RDW Std Deviation 42.6 RDW Coeff of Jamshid 13.1 Plt Count 255 MPV 11.0 Immature Gran % (Auto) 0.100 Neut % (Auto) 64.8 Lymph % (Auto) 24.5 [place] % (Auto) 9.2 Eos % (Auto) 0.5 Baso % (Auto) 0.9 Absolute Neuts (auto) 5.2 Absolute Lymphs (auto) 1.98 Nucleated RBC % 0 PT 12.8 INR 1.0 APTT 29.8 D-Dimer Quant (PE/DVT) 0.95 H* Sodium 137 Potassium 3.5 Chloride 106 Carbon Dioxide 25.0 Anion Gap 6 BUN 8 Creatinine 1.29 Estim Creat Clear Calc 89.38 Est GFR (MDRD) Af Amer 77 Est GFR (MDRD) Non-Af 64 BUN/Creatinine Ratio 6.2 L Glucose 115 H Calcium 9.5 Troponin I High Sens 5 5 Radiography Chest X-Ray - ED: 1 View, Read by ED Physician, Read by Radiologist and Right Infiltrate (Questionable right lower lobe) CTA PE Study: No Evidence of PE and No Evidence of Dissection Diagnostic Testing: Clinical Impression(s) from Imaging Studies Chest X-Ray 01/14/24 10:25 IMPRESSION: Questionable early right lower infiltrate. Electronically Signed: Alexander Arroyo MD at 10:45 EDT , Chest CTA 01/14/24 11:14 IMPRESSION: Normal CTA chest examination, without a demonstrated pulmonary embolism or arterial dissection. Minimal increased markings are seen along the medial aspect of the right middle lobe abutting the right cardiac border. Electronically Signed: Alexander Arroyo MD at 12:14 EDT , Portable 1 view chest x-ray was obtained. On my independent interpretation, lung guevara show a questionable right lower lobe infiltrate. There is normal cardiac silhouette. Bony thorax is normal. There is no acute process noted. Radiologist also interpreted the x-ray and agrees. Because of the elevated D-dimer, CTA of the chest was obtained. There is no evidence of pulmonary embolism or aortic dissection. There are minimal increased markings along the medial aspect of the right middle lobe. This was interpreted by the radiologist and was also dependently reviewed by myself. EKG Initial EKG: Attestation: I personally reviewed and interpreted this EKG as follows: Interpretation: Sinus Rhythm (83) and No Acute Injury Pattern Comments: EKG was obtained. On my independent interpretation, it showed a normal sinus rhythm with a rate of 83. ID interval, QRS interval, and QTc intervals were all normal. [place] was normal. There are no acute ST or T wave changes. Prior EKG tracings: available for review Prior: Unchanged (08/10/2021) Treatment and Re-Evaluation :: Patient was not given aspirin because of his allergy to aspirin. Patient has been pain-free here in the emergency department. Since the patient does not have any cough or fever, I do not feel that the markings on the CT scan are from pneumonia. Patient was advised of his findings. Patient has a HEART score of 2. Patient was advised that this is low risk for acute cardiac event. Patient was instructed to follow-up with his primary care physician in 5 to 7 days for further evaluation. Patient and spouse understood and were agreeable with the plan. All questions were answered. Discharge Plan Triage Chief Complaint: Chest Pain ED Provider: Yony Mcfadden Dx/Rx/DC Orders Clinical Impression: Chest pain, History of hypertension Instructions: ED Chest Pain, Uncertain Cause Prescriptions: No Action epinephrine [EpiPen 2-Jovan] 0.3 mg/0.3 mL auto-injector 0.3 mg IM Q10M PRN (Reason: anaphylaxis) Qty: 2 0RF Rx Instructions: for 2 doses omeprazole 40 mg capsule,delayed release(DR/EC) 40 mg PO DAILY fluticasone propionate 50 mcg/actuation spray,suspension INTRANASAL Primary Care Provider: Radha Ken Referrals: Radha Ken DO [Primary Care Provider] - 5-7 Days Print Language: Ukrainian Disposition Disposition: Home, Self Care
[2024-01-14 10:20] VITALS: O2SAT 96
[2024-01-14 10:23] LABS: Absolute Lymphocyte Count 1.98 X10^3/uL (0.83-4.51); Absolute Neutrophil Count 5.2 X10^3/uL (2.0-7.7); Basophil# 0.07 X10^3/uL; Basophil% 0.9 % (0-1); Eosinophil# 0.04 X10^3/uL; Eosinophils% 0.5 % (0-5); Hematocrit 50.2 % (40-54); Hemoglobin 16.7 g/dL (13.0-16.5); Lymphocyte # 1.98 X10^3/ul (0.83-4.51); Lymphocyte % 24.5 % (19-41); Mean Corp Hgb Conc 33.3 g/dL (32-36); Mean Corpuscular Hgb 29.6 pg (27.0-32.0); Mean Corpuscular Volume 88.8 fL (80-94); Monocyte# 0.74 X10^3/uL; Monocyte% 9.2 % (0-10); NRBC Flagged by Analyzer 0 % (0-5); Neutrophil # 5.23 X10^3/uL (2.7-7.7); Neutrophil % 64.8 % (47-70); Platelet Count 255 K/mm3 (150-450); RBC Distribution Width CV 13.1 % (11.6-14.6); RBC Distribution Width SD 42.6 fl (35.1-43.9); Red Blood Count 5.65 M/mm3 (4.6-6.2); White Blood Count 8.1 K/mm3 (4.4-11.0)
--- NOTE | 2024-01-14 10:25 | RAD_ITS ---
STUDY: X-RAY CHEST REASON FOR EXAM: Male, 43 years old. Chest pain TECHNIQUE: Single AP portable view of the chest. COMPARISON: Comparison is made with prior study December 2018. FINDINGS: EKG electrodes are seen. Questionable early right lower lobe infiltrate. There is no demonstrated pleural abnormality. Normal size heart. Normal mediastinum and sky. Normal visualized pulmonary arteries. Normal visualized aortic arch and descending thoracic aorta. Normal visualized thoracic spine. Normal visualized ribs, clavicles, and shoulders. There is no demonstrated abnormality of the visualized soft tissue structures of the upper abdomen. RAD/Chest 1 View (Portable) IMPRESSION: Questionable early right lower infiltrate. Electronically Signed: Alexander Arroyo MD at 10:45 EDT ,
--- NOTE | 2024-01-14 10:30 | EKG12_ITS ---
Test Reason : Blood Pressure : / mmHG Vent. Rate : 083 BPM Atrial Rate : 083 BPM P-R Int : 140 ms QRS Dur : 096 ms QT Int : 368 ms P-R-T Axes : 028 041 013 degrees QTc Int : 432 ms Normal sinus rhythm Normal ECG Confirmed by Manuel Hill ([id number]), index editor MARITA JEAN BAPTISTE ([id number]) on 01/15/2024 9:07:42 AM Referred By: VELASQUEZ Confirmed By:Manuel Hill
[2024-01-14 10:45] LABS: Anion Gap 6 (5-15); BUN 8 mg/dL (7-18); BUN/Creat Ratio 6.2 RATIO (10-20); Calcium,Total 9.5 mg/dL (8.5-10.1); Chloride 106 mmol/L (98-107); Creatinine, Serum 1.29 mg/dL (0.70-1.30); EST Glomerular Filtration Rate 64 mL/min (>60); Est Glom Filt Rate - Afr Amer 77 mL/min (>60); Estimated Creatinine Clearance 89.38 ml/min; Glucose 115 mg/dL (74-106); Potassium 3.5 mmol/L (3.5-5.1); Sodium Level 137 mmol/L (136-145); Troponin-I HS (w/2H Reflex) 5 pg/mL (3.0-78.0)
[2024-01-14 10:57] LABS: Prothrombin Time (Protime)PT. 12.8 SECONDS (11.7-14.9)
[2024-01-14 10:58] LABS: Partial Thromboplast Time 29.8 Seconds (24.1-36.2)
[2024-01-14 11:04] LABS: D-Dimer Quantitative (DVT/PE) 0.95 FEU/ug/m (0.27-0.49)
[2024-01-14 11:08] VITALS: BP 164/108; PULSE 71; RESP 16; O2SAT 98
--- NOTE | 2024-01-14 11:14 | CT_ITS ---
STUDY: CTA CHEST REASON FOR EXAM: Male, 43 years old. Elevated D-dimer and chest pain. RADIATION DOSAGE (If Supplied By Facility): CTDIvol = ( 11.26 ) mGy, DLP = ( 484.83 ) mGycm TECHNIQUE: The examination was performed with the intravenous administration of IV 100mL Isovue-370. Post-processing of the angiographic images was performed, with multiplanar reformation and 3D reconstruction. Individualized dose optimization techniques were used for this CT. COMPARISON: Comparison is made with prior chest radiograph done earlier in the day. FINDINGS: Normal enhancement of the main pulmonary artery and right and left pulmonary arteries. Normal enhancement of the bilateral peripheral pulmonary arteries. There is no demonstrated pulmonary embolism. Normal thoracic aorta and visualized great vessels. There is no demonstrated aortic dissection. Normal heart and pericardium. Normal mediastinum. Normal hilar regions. Normal visualized trachea and bronchi. The lungs are well expanded. Minimal increased markings seen in the medial aspect of the right middle lobe abutting the cardiac border. Normal pleura. Normal chest wall structures. Normal osseous structures. Normal visualized upper abdomen. CT/CTA Chest W/WO Contrast IMPRESSION: Normal CTA chest examination, without a demonstrated pulmonary embolism or arterial dissection. Minimal increased markings are seen along the medial aspect of the right middle lobe abutting the right cardiac border. Electronically Signed: Alexander Arroyo MD at 12:14 EDT ,
--- NOTE | 2024-01-14 11:56 | ED.RN ---
Pt. states he has no chest pain at this time
[2024-01-14 12:00] VITALS: BP 150/100; PULSE 79; RESP 16; O2SAT 96
[2024-01-14 12:20] LABS: Reflex Troponin-HS? (from REC) Y
[2024-01-14 12:56] VITALS: BP 163/103; PULSE 75; RESP 18; O2SAT 98
[2024-01-14 12:59] LABS: Troponin-I HS 5 pg/mL (3.0-78.0)
[2024-01-14 13:58] VITALS: BP 146/99; PULSE 85; RESP 15; TEMP 36.7; O2SAT 97
== END 2024-01-14 13:59 | disposition home or self-care (01) ==
PROVIDERS: Emergency Provider Emergency Medicine; PCP Family Medicine; Visit Provider Emergency Medicine
DX: R07.9 Chest pain, unspecified (principal); R42 Dizziness and giddiness; M54.2 Cervicalgia; R06.02 Shortness of breath; I10 Essential (primary) hypertension; R51.9 Headache, unspecified; R00.2 Palpitations; R35.0 Frequency of micturition; K21.9 Gastro-esophageal reflux disease without esophagitis; Z79.899 Other long term (current) drug therapy; Z88.6 Allergy status to analgesic agent; Z87.891 Personal history of nicotine dependence
CPT/HCPCS: 71045; 71275; 80048; 84484; 85025; 85379; 85610; 85730; 93005; 99284; A4216

== ENCOUNTER → 2024-02-26 | Outpatient (CLI) | payer BC, SELFPAY | END | disposition home or self-care (01) | LOC: PSN 10:19 | PROVIDERS: PCP Family Medicine; Referring Provider Internal Medicine Cardiovascular Disease; Visit Provider Internal Medicine Cardiovascular Disease | DX: R00.2 Palpitations (principal) | CPT/HCPCS: 93225; 93226 ==

== ENCOUNTER → 2024-03-11 | Outpatient (CLI) | payer BC, SELFPAY ==
--- NOTE | 2024-03-11 10:32 | STE_ITS ---
Reason For Study: Palpitations Stress Results Protocol: Stress Echocardiogram Krish Protocol Maximum Predicted HR: 175 bpm Target HR: 149 bpm % Maximum Predicted HR: 95 % Heart Stage Duration Rate BP Comment (mm:ss) (bpm) Baseline 72 138/80Patient denies chest pain or palpitations Stage 1 3:00 120 156/86Patient denies chest pain or palpitations. Stage 2 3:00 127 194/88Patient denies chest pain or palpitations Stage 3 3:00 148 204/90Patient denies chest pain or palpitations. Shortness of breath, leg fatigue. Patient denies chest pain or Stage 4 1:01 166 / palpitations. Recovery 98 138/88Patient denies chest pain, palpitations, or shortness of breath. Stress Duration: 10:01 mm:ss Maximum Stress HR: 166 bpm Baseline Echocardiogram Findings Stress Echo Wall motion Data Resting WM Intermediate WM Stress WM ECHO/Stress Test Echo w/o Contrast Interpretation Summary Exercise stress echo. 43-year-old man with a history of hypertension and palpitations. Resting EKG demonstrates normal sinus rhythm with a rate of 75 bpm normal inter vals are noted. The resting blood pressure is 138/80 mmHg. The patient exercised according to regul ar Krish protocol for total duration of 10 minutes completing 1 minute into stage IV of the Krish pro tocol the maximum heart rate attained was 166 bpm which was 94% of maximum predicted heart rate t he maximum workload was 13.4 metabolic equivalents. At rest there were no ST or T wave changes note d suggest ischemia and at peak exercise upsloping ST changes only were noted which did not meet th e criteria for ischemia. No clinical angina was noted the test was terminated due to fatigue. The peak blood pressure was 204/90 mmHg which was mildly hypertensive response to exercise. Stress echocardiogram. The resting echocardiogram performed demonstrated preserved left ventricular sy stolic function estimated at 55%. The posterior mitral valve leaflet appears to be mildly redun dant with respect to the cords. With exercise there was thickening of all gordon reduction of low gabby tricular cavity size peaking of ejection fraction at 70% with no wall motion abnormalities present. Conclusion: Stress echo with no EKG or echocardiographic changes for ischemia at a high wor kload. Excellent functional aerobic capacity. Ordering Physician: Chi Carmichael Referring Physician: Chi Carmichael Performed By: Maggie Villegas, DARLENE, RVT
== END | disposition home or self-care (01) ==
LOC: CVS 10:30
PROVIDERS: PCP Family Medicine; Referring Provider Internal Medicine Cardiovascular Disease; Visit Provider Internal Medicine Cardiovascular Disease
DX: R00.2 Palpitations (principal)
CPT/HCPCS: 93017; 93350

== ENCOUNTER → 2024-08-21 | Outpatient (CLI) | payer BC, SELFPAY ==
[2024-08-25 16:09] LABS: Lipoprotein A 18.8 nmol/L (<75.0)
== END | disposition home or self-care (01) ==
LOC: BFHLAB 14:11
PROVIDERS: Nurse Practitioner Family; PCP Family Medicine; Visit Provider Family Medicine
DX: N28.9 Disorder of kidney and ureter, unspecified (principal); R53.83 Other fatigue

== ENCOUNTER → 2024-09-05 | Outpatient (CLI) | payer BC, SELFPAY ==
[2024-09-05 16:21] LABS: Ferritin 142 ng/mL (26-388); Follicle Stimulating Hormone 2.2 mIU/mL; Luteinizing Hormone 2.1 mIU/mL
[2024-09-10 10:08] LABS: Testosterone, % Free 3.79 % (1.50-4.20); Testosterone, Free 11.82 ng/dL (5.00-21.00); Testosterone, Total 312 ng/dL (264-916); Transferrin 261 mg/dL (177-329)
== END | disposition home or self-care (01) ==
LOC: BFHLAB 08:57
PROVIDERS: PCP Family Medicine; Visit Provider Family Medicine
DX: E29.1 Testicular hypofunction (principal)
CPT/HCPCS: 36415; 82728; 83001; 83002; 84146; 84402; 84403; 84466

== ENCOUNTER → 2025-01-02 | Outpatient (CLI) | payer BC, SELFPAY ==
[2025-01-02 07:08] LABS: Absolute Lymphocyte Count 2.04 X10^3/uL (0.83-4.51); Absolute Neutrophil Count 3.7 X10^3/uL (2.0-7.7); Basophil# 0.06 X10^3/uL; Basophil% 0.9 % (0-1); Eosinophil# 0.12 X10^3/uL; Eosinophils% 1.8 % (0-5); Hematocrit 48.2 % (40-54); Hemoglobin 16.3 g/dL (13.0-16.5); Lymphocyte # 2.04 X10^3/ul (0.83-4.51); Lymphocyte % 30.9 % (19-41); Mean Corp Hgb Conc 33.8 g/dL (32-36); Mean Corpuscular Hgb 29.2 pg (27.0-32.0); Mean Corpuscular Volume 86.2 fL (80-94); Mean Platelet Vol. 10.7 fl (6.2-12.0); Monocyte# 0.71 X10^3/uL; Monocyte% 10.7 % (0-10); NRBC Flagged by Analyzer 0 % (0-5); Neutrophil # 3.66 X10^3/uL (2.7-7.7); Neutrophil % 55.4 % (47-70); Platelet Count 249 K/mm3 (150-450); RBC Distribution Width CV 12.8 % (11.6-14.6); Red Blood Count 5.59 M/mm3 (4.6-6.2); White Blood Count 6.6 K/mm3 (4.4-11.0)
[2025-01-02 07:41] LABS: Cholesterol 219 mg/dL (<=200); High Density Lipoprotein 39 mg/dL; Low Density Lipoprotein Calc. 133 mg/dL; Triglycerides 235 mg/dL; Very Low Density Lipoprotein 47 mg/dL (5-40); cholesterol:hdl ratio screen 5.64
[2025-01-02 07:43] LABS: ALB/GLOB Ratio 1.7 RATIO (0.9-2.4); AST(SGOT) 23 U/L (<=37); Alanine Aminotransfer ALT/SGPT 21 U/L (<=46); Albumin, Serum 4.6 g/dL (3.5-5.0); Alkaline Phosphatase 62 U/L (40-129); Anion Gap 10 (5-15); BUN 14 mg/dL (4-19); Bilirubin, Direct 0.18 mg/dL (0.00-0.30); Calcium,Total 9.4 mg/dL (7.6-11.0); Carbon Dioxide 25.1 mmol/L (21.0-32.0); Chloride 101 mmol/L (98-108); Creatinine, Serum 1.13 mg/dL (0.70-1.20); EST Glomerular Filtration Rate 81 (>60); Globulin 2.7 g/dL (2.2-4.2); Glucose 100 mg/dL (70-99); Potassium 4.1 mmol/L (3.3-5.1); Protein, Total 7.3 g/dL (5.9-8.4); Sodium Level 136 mmol/L (133-145); Total Bilirubin 0.65 mg/dL (0.00-1.30)
== END | disposition home or self-care (01) ==
LOC: LAB 06:41
PROVIDERS: PCP Family Medicine; Referring Provider Nurse Practitioner Family; Visit Provider Nurse Practitioner Family
DX: Z00.01 Encounter for general adult medical examination with abnormal findings (principal)
CPT/HCPCS: 36415; 80053; 80061; 82248; 85025

== ENCOUNTER 2025-04-13 07:16 | Emergency (ER) | payer BC, SELFPAY ==
[2025-04-13 07:16] VITALS: BP 165/96; PULSE 78; RESP 14; TEMP 36.2; O2SAT 98; BMI 29.3
--- NOTE | 2025-04-13 07:31 | EKG12_ITS ---
Test Reason : DIZZINESS Blood Pressure : */* mmHG Vent. Rate : 66 BPM Atrial Rate : 66 BPM P-R Int : 164 ms QRS Dur : 94 ms QT Int : 384 ms P-R-T Axes : 59 65 49 degrees QTcB Int : 402 ms Normal sinus rhythm Normal ECG Confirmed by Manuel Hill ([id number]), newspaper managing editor NORMA BANKS ([id number]) on 04/14/2025 10:19:03 AM Referred By: Confirmed By: Manuel Hill
--- NOTE | 2025-04-13 07:31 | CT_ITS ---
PROCEDURE: BRAIN/HEAD WITHOUT CONTRAST 04/13/2025 REASON FOR EXAM: DIZZINESS Headaches. TECHNIQUE: Procedure Code: CTBR Modality: CT Procedure: BRAIN/HEAD WITHOUT CONTRAST Coronal and Sagittal reconstruction series were provided. One or more dose reduction techniques were used (e.g., Automated exposure control, adjustment of the mA and/or kV according to patient size, use of iterative reconstruction technique. RADIATION DOSE SUMMARY: CTDlvol: 44.99 mGy DLP: A 12.98 mGycm COMPARISON: Prior study dated December 11, 2018. FINDINGS: Brain: Normal CSF Spaces: Normal Sinuses/Mastoids: Clear at visualized levels Bones: Unremarkable CT/Brain/Head without Contrast IMPRESSION: NORMAL NONCONTRAST HEAD CT. Reading Location: [id number]
--- NOTE | 2025-04-13 07:32 | EX.ED.DYSGE1 ---
HPI History of Present Illness Chief Complaint: Dizziness Narrative Narrative: 45-year-old male who denies significant past medical history except for hypertension presents with his because of multiple somatic complaints but mainly nausea and diarrhea but no vomiting, as well as lightheadedness and dizziness. He states that he went to the fair with his yesterday, but she states he did not drink anything all day. He did not really eat anything as well. This morning when he woke up at around 530, 2 hours ago, he felt very lightheaded, nauseated, and dizzy with slight vertiginous type symptoms. He has right sided neck pain that is chronic that radiates to the right side with mild photophobia. States has had 4 episodes of nonbloody diarrhea as well. No recent fevers or chills, no cough. No abdominal pain. He states he feels off balance, and when he looks certain ways, he feels drunk however, he has not been drinking alcohol. Seems to be worse with standing. [facility] Medical History Gout ETOH abuse History of hypertension Chest pain Dysphagia Anxiety and depression GERD (gastroesophageal reflux disease) Hypertension Home Medications ?Medication ?Instructions ?Recorded ?Last Taken ?Type epinephrine 0.3 mg/0.3 mL 0.3 mg (0.3 mL) IM Q10M PRN 02/08/21 Unknown Rx injection, auto-injector (EpiPen anaphylaxis #2 ea 2-Jovan) fluticasone propionate 50 spray intranasal 01/14/24 Unknown History mcg/actuation nasal spray,suspension omeprazole 40 mg capsule,delayed 40 mg PO DAILY PRN 02/20/24 Unknown History release losartan 50 mg tablet 25 mg PO DAILY 07/02/24 Unknown History magnesium oxide 400 mg PO DAILY PRN 07/02/24 Unknown History meclizine 25 mg tablet 25 mg PO 4X/DAY PRN PRN Dizziness 04/13/25 Unknown Rx #20 tabs Allergy/AdvReac Type Severity Reaction Status Date / Time aspirin Allergy Rash Verified 04/13/25 07:17 bee venom protein (honey bee) Allergy Anaphylaxis Verified 04/13/25 07:17 levofloxacin (From Levaquin) Allergy Hives Verified 04/13/25 07:17 peanut Allergy Hives Verified 04/13/25 07:17 Penicillins Allergy Anaphylaxis Verified 04/13/25 07:17 shellfish derived Allergy Hives Verified 04/13/25 07:17 Family History Father Myocardial infarction H/O endarterectomy S/P CABG x 3 Stent-47 Carotid artery disease Brother Myocardial infarction, Onset Age: 47 Afib Mother Afib CAD (coronary artery disease), Onset Age: 55 Grandfather Myocardial infarction Paternal- Late 40s Surgical History Hx of tooth extraction S/P ORIF (open reduction internal fixation) fracture Hx of knee surgery History of appendectomy Social History Smoking Status: Former smoker how long ago did patient quit smokin alcohol intake: current alcohol intake frequency: other Alcohol type: beer details: rarely substance use type: does not use caffeine: Yes Type: carbonated beverages Number of servings: 1, coffee Number of servings: 3 and tea Number of servings: 10 ROS ROS ED ROS Narrative Review of systems positive for lightheadedness and dizziness. Positive nausea but no vomiting. 4 episodes of nonbloody diarrhea. Right sided headache radiating from neck to scalp, and behind eye. Worse with standing. Feels off balance at times. EXAM Physical Exam Narrative Exam Narrative: Afebrile. Vital signs noted. Nontoxic-appearing. Cardiovascular examination feels a regular rate and rhythm. Lungs are clear to auscultation bilaterally. Abdomen is soft and nontender with positive bowel sounds, no guarding or rebound. Neurological examination is nonfocal, nonlateralizing. Awake, alert, oriented x 3. Interactive, asking during questions appropriately. DTRs, patellar equal and symmetric. NIH stroke scale is 0. Cerebellar functioning normal as tested. Const Vital Signs: 04/13/25 07:16 04/13/25 08:45 04/13/25 09:16 Temperature 97.1 F L Temperature Source Temporal Pulse Rate 78 76 Pulse Rate [Lying] 68 Pulse Rate [Sitting (for 1 minute prior to obtaining)] 63 Pulse Rate [Standing (for 1 minute prior to obtaining)] 72 Respiratory Rate 14 18 Blood Pressure 165/96 H 141/81 H Blood Pressure [Lying] 140/84 H Blood Pressure [Sitting (for 1 minute prior to obtaining)] 139/91 H Blood Pressure [Standing (for 1 minute prior to obtaining)] 131/95 H Blood Pressure Mean 119 101 Blood Pressure Mean [Lying] 102 Blood Pressure Mean [Sitting (for 1 minute prior to obtaining)] 107 Blood Pressure Mean [Standing (for 1 minute prior to obtaining)] 107 Pulse Ox 98 99 Oxygen Delivery Method Room Air Room Air MDM MDM MDM Narrative Medical decision making narrative: Differential diagnosis includes but not limited to intravascular volume depletion versus dehydration versus other electrolyte imbalance versus benign positional vertigo versus atypical migraine. I have low suspicion for TIA or stroke. I do not feel stroke team is indicated as he has an NIH stroke scale of 0. Patient will be bolused normal saline and orthostatics obtained as well as EKG. Will obtain CT imaging of his brain as well. We will start with antiemetics so he could be seen if he will tolerate oral meclizine for benign positional vertigo. CBC and CMP will be checked as well. EKG was obtained and interpreted by myself independently as normal sinus rhythm at 66 bpm without ectopy or acute ST changes. No STEMI. No significant change from EKG dated January 14, 2024. I reviewed his laboratory work and he has normal white count of 7.3 with hemoglobin normal at 16.0, hematocrit 47, platelet count normal at 221. CMP shows normal glucose of 104 with BUN 11 and creatinine 1.03, sodium normal at 138 and potassium normal at 4.0. No evidence of dehydration. Urinalysis negative for infection or ketones. Orthostatics negative as well. Repeat examination after Zofran shows that he is no longer nauseated. He was then given meclizine 25 mg orally which he tolerated. I reviewed the radiology report of the CT of the brain which shows no evidence of an acute process, no hemorrhage or mass. Patient was ambulated to the bathroom without difficulty. At this point in time, may have had more of a intravascular volume depletion or benign positional vertigo. I feel he can be discharged safely home with follow-up. He was written a prescription for meclizine 25 mg to take up to 4 times a day and he will follow-up with his primary care provider. Return instructions to the emergency department were reviewed. Patient and agreeable to the plan. Disposition is discharged home in stable condition. History & Record Review Discussion w/independent historian: Patient and Family () Additional record(s) reviewed:: Prior ED visit (Essentially noncontributory to current chief complaint, seen for allergic reaction history of hypertension) Lab Data Attestation: I reviewed the patient's lab results. Labs: Laboratory Results - last 24 hr 04/13/25 04/13/25 07:37 09:00 WBC 7.3 RBC 5.42 Hgb 16.0 Hct 47.0 MCV 86.7 MCH 29.5 MCHC 34.0 RDW Std Deviation 39.8 RDW Coeff of Jamshid 12.6 Plt Count 221 MPV 10.6 Immature Gran % (Auto) 0.100 Neut % (Auto) 58.5 Lymph % (Auto) 25.1 Stephenson % (Auto) 12.4 H Eos % (Auto) 2.8 Baso % (Auto) 1.1 H Absolute Neuts (auto) 4.3 Absolute Lymphs (auto) 1.82 Nucleated RBC % 0 Sodium 138 Potassium 4.0 Chloride 102 Carbon Dioxide 25.2 Anion Gap 11 BUN 11 Creatinine 1.03 Estim Creat Clear Calc 107.60 Est GFR (MDRD) Non-Af 90 BUN/Creatinine Ratio 11.1 Glucose 104 H Calcium 9.3 Total Bilirubin 0.44 AST 22 ALT 23 Alkaline Phosphatase 57 Total Protein 7.1 Albumin 4.5 Globulin 2.6 Albumin/Globulin Ratio 1.7 Urine Color Yellow Urine Clarity Clear Urine pH 7.0 Ur Specific [place] 1.010 Urine Protein 15 H Urine Glucose (UA) Normal Urine Ketones Negative Urine Occult Blood Negative Urine Nitrite Negative Urine Bilirubin Negative Urine Urobilinogen Normal Ur Leukocyte Esterase Negative Urine RBC 0 SEEN Urine WBC 0 SEEN Ur Squamous Epith Cells 0 SEEN Urine Bacteria 0 SEEN Urine Mucus 0 SEEN Radiography Diagnostic Testing: Clinical Impression(s) from Imaging Studies Brain CT 04/13/25 07:31 IMPRESSION: NORMAL NONCONTRAST HEAD CT. Reading Location: [id number] Discharge Plan Triage Chief Complaint: Dizziness ED Provider: Fernando Menendez Dx/Rx/DC Orders Clinical Impression: Dizziness, Lightheadedness, Nausea Instructions: ED Dizziness, Uncertain Cause, ED Near-Fainting, Uncertain Cause Prescriptions: New meclizine 25 mg tablet 25 mg PO 4X/DAY PRN PRN (Reason: Dizziness) Qty: 20 0RF No Action losartan 50 mg tablet 25 mg PO DAILY Rx Instructions: Unable to tolerate the 50 mg dose. epinephrine [EpiPen 2-Jovan] 0.3 mg/0.3 mL auto-injector 0.3 mg IM Q10M PRN (Reason: anaphylaxis) Qty: 2 0RF Rx Instructions: for 2 doses omeprazole 40 mg capsule,delayed release(DR/EC) 40 mg PO DAILY PRN fluticasone propionate 50 mcg/actuation spray,suspension INTRANASAL magnesium oxide 400 mg magnesium tablet 400 mg PO DAILY PRN Stand Alone Forms: ED Work / School Excuse Primary Care Provider: Radha Ken Referrals: Radha Ken DO [Primary Care Provider] - 3-5 Days if not improving Print Language: Maldivian Disposition Disposition: Home, Self Care
[2025-04-13 07:44] LABS: Hematocrit 47.0 % (40-54); Hemoglobin 16.0 g/dL (13.0-16.5); Immature Granulocytes Count 0.010 X10^3/uL (0.0-0.0); Mean Corp Hgb Conc 34.0 g/dL (32-36); Mean Corpuscular Volume 86.7 fL (80-94); Mean Platelet Vol. 10.6 fl (6.2-12.0); NRBC Flagged by Analyzer 0 % (0-5); Platelet Count 221 K/mm3 (150-450); RBC Distribution Width CV 12.6 % (11.6-14.6); RBC Distribution Width SD 39.8 fl (35.1-43.9); Red Blood Count 5.42 M/mm3 (4.6-6.2); White Blood Count 7.3 K/mm3 (4.4-11.0)
[2025-04-13] MEDS: 0.9% Normal Saline (1000mL) 1,000 ML 1000 ML IV (07:46)
--- OUTSIDE RECORDS SUMMARY | 2025-04-13 08:19 | XMS RPT_ITS | CCD ---
Author Organization [facility] Care Team Providers Care Clay Caster Name Role Phone Dr. Radha Ken DO Primary Care Provider Benjamin WET WASH ASSEMBLER-C, Maggie Attending Provider Benjamin WET WASH ASSEMBLER-C, Maggie Referring Provider Roof WET WASH ASSEMBLER-CJohnathon Other Provider Malys, Radha Primary Care Unavailable Pillo Griffiths Attending Unavailable Malys, Radha Primary Care Unavailable Pillo Griffiths Attending Unavailable Malys, Radha Primary Care Unavailable Benjamin, Maggie Attending Unavailable Benjamin, Maggie Referring Unavailable Roof WET WASH ASSEMBLERJohnathon Consulting Unavailable Malys, Radha Primary Care Unavailable Jany, Chi Referring Unavailable Jany, [place] Attending Unavailable Jany, [place] Referring Unavailable Jany, Chi Attending Unavailable Malys, Radha Primary Care Unavailable Malys, Radha Primary Care Unavailable Cathy Mcfadden Attending Unavailable Malys, Radha Primary Care Unavailable Benjamin, Maggie Attending Unavailable Benjamin, Maggie Referring Unavailable Malys, Radha Referring Unavailable Malys, Radha Primary Care Unavailable Roof WET WASH ASSEMBLER, Johnathon Guerrier Attending Unavailable Malys, Radha Primary Care Unavailable Jany, [place] Attending Unavailable Malys, Radha Referring Unavailable Jany, Chi Referring Unavailable Jany, Chi Attending Unavailable Malys, Radha Primary Care Unavailable Jany, Chi Attending Unavailable Malys, Radha Primary Care Unavailable Malys, Radha Primary Care Unavailable Ghislaine Solis Attending Unavailable Allergies Allergy Classification Reported Allergen(s) Allergy Type Date of Onset Reaction(s) Facility (5 sources) Aspirin Drug Allergy 2 [facility] (5 sources) levoFLOXacin Drug Allergy 2 [facility] (5 sources) peanut allergenic extract Drug Allergy 2 [facility] (5 sources) Penicillins Allergy to substance 2 Anaphylaxis [facility] (6 sources) Shellfish; Translations: [shellfish derived] Allergy to substance 2 [facility] (5 sources) bee venom protein (honey bee) Allergy to substance 2 Anaphylaxis [facility] (1 source) Aspirin Drug Allergy 4 [facility] (1 source) levoFLOXacin Drug Allergy 4 [facility] (1 source) peanut allergenic extract Drug Allergy 4 [facility] (1 source) Penicillins Drug allergy (disorder) 4 [facility] (1 source) bee venom protein (honey bee) Drug allergy (disorder) 4 [facility] Medications Current Medications Medication Drug Class(es) Dates Sig (Normalized) Sig (Original) [id number] 0.3 ml EPINEPHrine 1 mg/ml auto-injector (5 sources) alpha-Adrenergic Agonist, beta-Adrenergic Agonist, Catecholamine Start: 02-08-2021 Epinephrine (Epipen 2-Jovan) 0.3 mg/0.3 mL auto-injector Active 0.3 mg IM Q10M as needed for anaphylaxis February 08, 2021 12:00am for 2 doses fluticasone propionate 0.05 mg/actuat metered dose nasal spray (3 sources) Corticosteroid Start: 01-14-2024 Fluticasone Propionate 50 mcg/actuation spray,suspension Active NMA INTRANASAL January 14, 2024 12:00am Start: 07-20-2021 Fluticasone Pr opionate Active 1 SPRAY INTRANASAL DAILY July 20, 2021 12:00am hydroCHLOROthiazide 12.5 mg / valsartan 160 mg oral tablet (2 sources) Thiazide Diuretic, Angiotensin 2 Receptor Ezequiel Start: 08-10-2021 take 0.5 tablet by mouth once daily Valsartan-Hydrochlorothiazide Active 0.5 TABLET PO DAILY August 10, 2021 12:00am losartan potassium 50 mg oral tablet (2 sources) Angiotensin 2 Receptor Ezequiel Start: 07-02-2024 Losartan 50 mg tablet Active 25 mg PO DAILY July 02, 2024 9:40am Unable to tolerate the 50 mg dose. Start: 02-20-2024 End: 07-02-2024 take 1 tablet by mouth once daily Losartan 50 mg tablet Discontinued 50 mg PO DAILY 90 February 20, 2024 12:00am July 02, 2024 9:41am magnesium oxide 400 mg oral tablet (2 sources) Start: 03-24-2024 End: 07-02-2024 take 1 tablet by mouth once daily as needed Magnesium Oxide 400 mg magnesium tablet Active 400 mg PO DAILY as needed July 02, 2024 9:36am omeprazole 40 mg delayed release oral capsule (6 sources) Proton Pump Inhibitor Start: 07-20-2021 End: 02-20-2024 take 1 capsule by mouth once daily as needed Omeprazole 40 mg capsule,delayed release(DR/EC) Active 40 mg PO DAILY as needed February 20, 2024 9:48am Completed/Discontinued Medications Medication Drug Class(es) Dates Sig (Normalized) Sig (Original) carvedilol 3.125 mg oral tablet (2 sources) alpha-Adrenergic Ezequiel, beta-Adrenergic Ezequiel Start: 01-25-2024 End: 07-02-2024 take 1 tablet by mouth once daily at mealtime Carvedilol 3.125 mg tablet Discontinued 3.125 mg PO DAILY as needed February 20, 2024 9:47am July 02, 2024 9:36am must administer with a meal/food diphenhydrAMINE hydrochloride 2.5 mg/ml oral solution (5 sources) Histamine-1 Receptor Antagonist Start: 12-11-2018 End: 12-12-2018 take 1 mL by mouth twice daily as needed Diphenhydramine Hcl 12.5 MG/5 ML bottle Discontinued 10 mL PO TWICE DAILY NEEDED as needed for Allergies December 11, 2018 12:00am December 12, 2018 11:15am Start: 12-11-2018 End: 12-12-2018 take 1 mL by mouth twice daily as needed Diphenhydramine Hcl Discontinued 10 ML PO TWICE DAILY NEEDED December 11, 2018 12:00am December 12, 2018 11:15am doxycycline hyclate 100 mg oral capsule (3 sources) Tetracycline-class Drug Start: 11-19-2022 End: 01-14-2024 take 1 capsule by mouth twice daily Doxycycline Hyclate 100 mg capsule Discontinued 100 mg PO TWICE A DAY November 19, 2022 12:00am January 14, 2024 10:02am Problems Active Problems Problem Classification Problem Date Documented Da te Episodic/Chronic Alcohol-related disorders (5 sources) Alcohol abuse; Translations: [Alcohol abuse, uncomplicated] 12-12-2018 Chronic Anxiety disorders (5 sources) Anxiety; Translations: [Anxiety disorder, unspecified] 08-18-2021 Chronic Disorders of lipid metabolism (2 sources) Hyperlipidemia; Translations: [Hyperlipidemia, unspecified] Onset: 07-02-2024 Chronic Esophageal disorders (5 sources) Gastroesophageal reflux disease; Translations: [Gastro-esophageal reflux disease without esophagitis] 12-12-2018 Chronic Essential hypertension (5 sources) Hypertensive disorder; Translations: [Essential (primary) hypertension] 08-18-2021 Chronic Gout and other crystal arthropathies (1 source) Gout; Translations: [Gout, unspecified] 01-25-2024 Chronic Miscellaneous mental health disorders (5 sources) Psychogenic hyperventilation; 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 Other circulatory disease (5 sources) H/O: hypertension; Translations: [Personal history of other diseases of the circulatory system] 12-11-2018 Episodic Other endocrine disorders (1 source) Testicular hypofunction; Translations: [Testicular hypofunction] Onset: Chronic Other gastrointestinal disorders (5 sources) Dysphagia; Translations: [Dysphagia, unspecified] 12-12-2018 Episodic Other nutritional; endocrine; and metabolic disorders (5 sources) Body mass index 30+ - obesity; Translations: [Body mass index (BMI) 30.0-30.9, adult] 07-20-2021 Chronic Residual codes; unclassified (1 source) Family history of cardiac disorder; Translations: [Family history of ischemic heart disease and other diseases of the circulatory system] 07-02-2024 Episodic Superficial injury; contusion (3 sources) Foreign body - finger; Translations: [Superficial foreign body of unspecified finger, initial encounter] 11-19-2022 Episodic Syncope (5 sources) Near syncope; Translations: [Syncope and collapse] 12-05-2018 Episodic Viral infection (4 sources) Disease caused by 2019-nCoV; Translations: [COVID-19] 07-20-2021 Episodic Past or Other Problems Problem Classification Problem Date Documented Da te Episodic/Chronic Cardiac dysrhythmias (2 sources) Palpitations; Translations: [Palpitations] Onset: 04-11-2024 07-02-2024 Episodic Nonspecific chest pain (7 sources) Chest pain; Translations: [Chest pain, unspecified] Onset: 02-20-2024 12-12-2018 Episodic Other circulatory disease (1 source) Personal history of other diseases of the circulatory system; Translations: [Personal history of other diseases of the circulatory system] Onset: 07-02-2024 Episodic Other diseases of kidney and ureters (1 source) Disorder of kidney and ureter, unspecified; Translations: [Disorder of kidney and ureter, unspecified] Onset: 09-10-2024 Episodic Residual codes; unclassified (1 source) Family history of ischemic heart disease and other diseases of the circulatory system; Translations: [Family history of ischemic heart disease and other diseases of the circulatory system] Onset: 07-02-2024 Episodic Results Test Name Value Interpretation Reference Range Facility Absolute lymphocyte countOrd ered By: Maggie Alexander on 01-02-2025 Lymphocytes Auto (Unsp spec) [#/Vol] 2.04 10*3/uL 0.83-4.51 [facility] Absolute neutrophil countOrd ered By: Maggiemelissa Alexander on 01-02-2025 Neutrophils (Bld) [#/Vol] 3.7 10*3/uL 2.0-7.7 [facility] Anion gap in Serum or Plasma Ordered By: Maggie Alexander on 01-02-2025 Anion gap [Moles/Vol] 10 mmol/L 5-15 [facility] Automated lymphocyte count a s percentage of total leukocytesOrdered By: Maggie Alexander on 01-02-2025 Lymphocytes/100 WBC Auto (Unsp spec) 30.9 % 19-41 [facility] BUN/creatinine [facility]Ordered By: [facility] on 01-02-2025 Urea nitrogen/Creatinine [Mass ratio] 12.0 mg/mg 10-20 [facility] Basophil percentageOrdered B y: Maggie Alexander on 01-02-2025 Basophils/100 WBC (Bld) 0.9 % 0-1 [facility] Bilirubin directOrdered By: Maggiemelissa Alexander on 01-02-2025 Bilirubin.direct [Mass/Vol] 0.18 mg/dL 0.00-0.30 [facility] Bilirubin, Directon 01-03-20 Bilirubin.direct [Mass/Vol] 0.18 mg/dL Normal 0.00-0.30 [facility] Comment on above: Order Comment: SEND LIVER AND LIPID TO WELL Performed By: #### L 500.4050, L500.4100, L100.0100, [id number] #### [facility] [address] [place], [address] Bilirubin, totalOrdered By: Maggie Alexander on 01-02-2025 Bilirubin [Mass/Vol] 0.65 mg/dL 0.00-1.[address] [facility] CBC W/Diff, Automatedon 12-06 Absolute Lymph 2.04 X10 3/uL Normal 0.83-4.51 [facility] Comment on above: Performed By: #### L 500.4050, L500.4100, L100.0100, [id number] #### [facility] [address] [place], [address] Absolute Neut 3.7 X10 3/uL Normal 2.0-7.7 [facility] Comment on above: Performed By: #### L 500.4050, L500.4100, L100.0100, [id number] #### [facility] [address] [place], [address] Basophils/100 WBC (Bld) 0.9 % Normal 0-1 [facility] Comment on above: Performed By: #### L 500.4050, L500.4100, L100.0100, [id number] #### [facility] [address] [place], [address] Eosinophils/100 WBC (Bld) 1.8 % Normal 0-5 [facility] Comment on above: Performed By: #### L 500.4050, L500.4100, L100.0100, [id number] #### [facility] [address] [place], [address] Erythrocyte distribution width (RBC) [Ratio] 12.8 % Normal 11.6-14.6 [facility] Comment on above: Performed By: #### L 500.4050, L500.4100, L100.0100, [id number] #### [facility] [address] [place], [address] Hematocrit (Bld) [Volume fraction] 48.2 % Normal 40-54 [facility] Comment on above: Performed By: #### L 500.4050, L500.4100, L100.0100, [id number] #### [facility] [address] [place], [address] Hemoglobin (Bld) [Mass/Vol] 16.3 g/dL Normal 13.0-16.5 [facility] Comment on above: Performed By: #### L 500.4050, L500.4100, L100.0100, [id number] #### [facility] [address] [place], [address] IG% 0.300 Normal 0.0-0.9 [facility] Comment on above: Result Comment: IG% - Immature Granulocytes (promyelocytes, myelocytes and metamyelocytes) > 1% indicates that a LEFT SHIFT is Present. Performed By: #### L 500.4050, L500.4100, L100.0100, [id number] #### [facility] [address] [place], [address] Lymphocytes/100 WBC (Bld) 30.9 % Normal 19-41 [facility] Comment on above: Performed By: #### L 500.4050, L500.4100, L100.0100, [id number] #### [facility] [address] [place], [address] MCH (RBC) [Entitic mass] 29.2 pg Normal 27.0-32.0 [facility] Comment on above: Performed By: #### L 500.4050, L500.4100, L100.0100, [id number] #### [facility] [address] [place], [address] MCHC (RBC) [Mass/Vol] 33.8 g/dL Normal 32-36 [facility] Comment on above: Performed By: #### L 500.4050, L500.4100, L100.0100, [id number] #### [facility] [address] [place], [address] MCV (RBC) [Entitic vol] 86.2 fL Normal 80-94 [facility] Comment on above: Performed By: #### L 500.4050, L500.4100, L100.0100, [id number] #### [facility] [address] [place], [address] Monocytes/100 WBC (Bld) 10.7 % High 0-10 [facility] Comment on above: Performed By: #### L 500.4050, L500.4100, L100.0100, [id number] #### [facility] [address] [place], [address] Neutrophils/100 WBC (Bld) 55.4 % Normal 47-70 [facility] Comment on above: Performed By: #### L 500.4050, L500.4100, L100.0100, [id number] #### [facility] [address] [place], [address] Nucleated RBC (Bld) [#/Vol] 0 10*3/uL Normal 0-5 [facility] Comment on above: Performed By: #### L 500.4050, L500.4100, L100.0100, [id number] #### [facility] [address] [place], [address] Platelet mean volume (Bld) [Entitic vol] 10.7 fL Normal 6.2-12.0 [facility] Comment on above: Performed By: #### L 500.4050, L500.4100, L100.0100, [id number] #### [facility] [address] [place], [address] Platelets (Bld) [#/Vol] 249 10*3/uL Normal 150-450 [facility] Comment on above: Performed By: #### L 500.4050, L500.4100, L100.0100, [id number] #### [facility] [address] [place], [address] RBC (Bld) [#/Vol] 5.59 10*6/uL Normal 4.6-6.2 [facility] Comment on above: Performed By: #### L 500.4050, L500.4100, L100.0100, [id number] #### [facility] [address] [place], [address] RDW SD 40.0 fl Normal 35.1-43.9 [facility] Comment on above: Performed By: #### L 500.4050, L500.4100, L100.0100, [id number] #### [facility] [address] [place], [address] WBC (Bld) [#/Vol] 6.6 10*3/uL Normal 4.4-11.0 [facility] Comment on above: Performed By: #### L 500.4050, L500.4100, L100.0100, [id number] #### [facility] [address] [place], [address] Calculated very low density lipoprotein (VLDL) cholesterol measurementOrdered By: Maggie Alexander on 01-02-2025 Calculated very low density lipoprotein (VLDL) cholesterol measurement 47 mg/dL High 5-40 [facility] Carbon dioxide, total [Moles /volume] in Central venous bloodOrdered By: Maggie Alexander on 01-02-2025 CO2 [Moles/Vol] 25.1 mmol/L 21.0-32.0 [facility] Chloride assayOrdered By: Ra grace Alexander on 01-02-2025 Chloride [Moles/Vol] 101 mmol/L 98-[address] [facility] Comprehensive Metabolic Prof ilon 01-02-2025 Albumin [Mass/Vol] 4.6 g/dL Normal 3.5-5.0 [facility] Comment on above: Order Comment: SEND LIVER AND LIPID TO WELL Performed By: #### L 500.4050, L500.4100, L100.0100, [id number] #### [facility] [address] [place], [address] Albumin/Globulin [Mass ratio] 1.7 {ratio} Normal 0.9-2.4 [facility] Comment on above: Order Comment: SEND LIVER AND LIPID TO WELL Performed By: #### L 500.4050, L500.4100, L100.0100, [id number] #### [facility] [address] [place], [address] ALK PHOS 62 U/L Normal 40-129 [facility] Comment on above: Order Comment: SEND LIVER AND LIPID TO WELL Performed By: #### L 500.4050, L500.4100, L100.0100, [id number] #### [facility] [address] [place], [address] ALT [Catalytic activity/Vol] 21 U/L Normal <=46 [facility] Comment on above: Order Comment: SEND LIVER AND LIPID TO WELL Performed By: #### L 500.4050, L500.4100, L100.0100, [id number] #### [facility] [address] [place], [address] AST [Catalytic activity/Vol] 23 U/L Normal <=37 [facility] Comment on above: Order Comment: SEND LIVER AND LIPID TO WELL Performed By: #### L 500.4050, L500.4100, L100.0100, [id number] #### [facility] [address] [place], [address] Bilirubin [Mass/Vol] 0.65 mg/dL Normal 0.00-1.[address] [facility] Comment on above: Order Comment: SEND LIVER AND LIPID TO WELL Performed By: #### L 500.4050, L500.4100, L100.0100, [id number] #### [facility] [address] [place], [address] BUN/CRE 12.0 RATIO Normal 10-20 [facility] Comment on above: Order Comment: SEND LIVER AND LIPID TO WELL Performed By: #### L 500.4050, L500.4100, L100.0100, [id number] #### [facility] [address] [place], [address] Calcium [Mass/Vol] 9.4 mg/dL Normal 7.6-11.0 [facility] Comment on above: Order Comment: SEND LIVER AND LIPID TO WELL Performed By: #### L 500.4050, L500.4100, L100.0100, [id number] #### [facility] [address] [place], [address] Chloride [Moles/Vol] 101 mmol/L Normal 98-[address] [facility] Comment on above: Order Comment: SEND LIVER AND LIPID TO WELL Performed By: #### L 500.4050, L500.4100, L100.0100, [id number] #### [facility] [address] [place], [address] CO2 [Moles/Vol] 25.1 mmol/L Normal 21.0-32.0 [facility] Comment on above: Order Comment: SEND LIVER AND LIPID TO WELL Performed By: #### L 500.4050, L500.4100, L100.0100, [id number] #### [facility] [address] [place], [address] Creatinine [Mass/Vol] 1.13 mg/dL Normal 0.70-1.20 [facility] Comment on above: Order Comment: SEND LIVER AND LIPID TO WELL Performed By: #### L 500.4050, L500.4100, L100.0100, [id number] #### [facility] [address] [place], [address] GAP 10 Normal 5-15 [facility] Comment on above: Order Comment: SEND LIVER AND LIPID TO WELL Performed By: #### L 500.4050, L500.4100, L100.0100, [id number] #### [facility] [address] [place], [address] GFR/1.73 sq M.predicted among non-blacks MDRD (S/P/Bld) [Vol rate/Area] 81 mL/min/{1.73_m2} Normal >60 [facility] Comment on above: Order Comment: SEND LIVER AND LIPID TO WELL Result Comment: mL/m in/1.73m2 CKD-EPI Creatinine Equation (2020) Performed By: #### L 500.4050, L500.4100, L100.0100, [id number] #### [facility] [address] [place], [address] Globulin (S) [Mass/Vol] 2.7 g/dL Normal 2.2-4.2 [facility] Comment on above: Order Comment: SEND LIVER AND LIPID TO WELL Performed By: #### L 500.4050, L500.4100, L100.0100, [id number] #### [facility] [address] [place], [address] Glucose [Mass/Vol] 100 mg/dL High 70-99 [facility] Comment on above: Order Comment: SEND LIVER AND LIPID TO WELL Performed By: #### L 500.4050, L500.4100, L100.0100, [id number] #### [facility] [address] [place], [address] Potassium [Moles/Vol] 4.1 mmol/L Normal 3.3-5.1 [facility] Comment on above: Order Comment: SEND LIVER AND LIPID TO WELL Result Comment: Hemo lysis present, Results??could be affected. ?? Performed By: #### L 500.4050, L500.4100, L100.0100, [id number] #### [facility] [address] [place], [address] Sodium [Moles/Vol] 136 mmol/L Normal 133-145 [facility] Comment on above: Order Comment: SEND LIVER AND LIPID TO WELL Performed By: #### L 500.4050, L500.4100, L100.0100, [id number] #### [facility] [address] [place], [address] T PROT 7.3 g/dL Normal 5.9-8.4 [facility] Comment on above: Order Comment: SEND LIVER AND LIPID TO WELL Performed By: #### L 500.4050, L500.4100, L100.0100, [id number] #### [facility] [address] [place], [address] Urea nitrogen [Mass/Vol] 14 mg/dL Normal 4-19 [facility] Comment on above: Order Comment: SEND LIVER AND LIPID TO WELL Performed By: #### L 500.4050, L500.4105, L100.0100, E897.6749 #### [facility] [address] [place], [address] Eosinophil percentageOrdered By: Maggiemelissa Alexander on 01-02-2025 Eosinophils/100 WBC (Bld) 1.8 % 0-5 [facility] Erythrocyte distribution wid th ratioOrdered By: Maggiemelissa Alexander on 01-02-2025 Erythrocyte distribution width (RBC) [Ratio] 12.8 % 11.6-14.6 [facility] Erythrocyte distribution wid th standard deviationOrdered By: [facility] on 01-02-2025 Erythrocyte distribution width (RBC) [Ratio] 40.0 fl 35.1-43.9 [facility] Glomerular filtration rate ( GFR) estimation/1.73 sq m using serum, plasma, or whole bOrdered By: Maggiemelissa Alexander on 01-02-2025 GFR/1.73 sq M.predicted among non-blacks MDRD (S/P/Bld) [Vol rate/Area] 81 mL/min/{1.73_m2} >60 [facility] Comment on above: mL/min/1.73m2 CKD-EP I Creatinine Equation (2020) Hematocrit Auto (Bld) [Volum e fraction]Ordered By: [facility] on 01-02-2025 Hematocrit (Bld) [Volume fraction] 48.2 % 40-54 [facility] Hemoglobin measurementOrdere d By: Maggie Alexander on 01-02-2025 Hemoglobin (Bld) [Mass/Vol] 16.3 g/dL 13.0-16.5 [facility] Immature granulocytes/100 WB C Auto (Bld)Ordered By: Maggiemelissa Alexander on 01-02-2025 Immature granulocytes/100 WBC (Bld) 0.300 % 0.0-0.9 [facility] Comment on above: IG% - Immature Granu locytes (promyelocytes, myelocytes and metamyelocytes) > 1% indicates that a LEFT SHIFT is Present. LDL calc ser/plasOrdered By: Maggie Alexander on 01-02-2025 Cholesterol in LDL [Mass/Vol] 133 mg/dL [facility] Comment on above: Wabvadjupo=016-209 m g/dL & Higher Xuhc=405 mg/dL or greater Laboratory - Chemistry and C hemistry - challengeOrdered By: Maggie Alexander on 01-02-2025 AST [Catalytic activity/Vol] 23 U/L <38 [facility] Lipid Profileon 01-02-2025 CHOL:HDL 5.64 Normal [facility] Comment on above: Order Comment: SEND LIVER AND LIPID TO WELL Performed By: #### L 500.4050, L500.4100, L100.0100, L501.4700 #### [facility] [address] [place], [address] Cholesterol [Mass/Vol] 219 mg/dL High <=200 [facility] Comment on above: Order Comment: SEND LIVER AND LIPID TO WELL Result Comment: Chol esterol level, Desirable <200 mg/dL Borderline high cholesterol 200-239 mg/dL High cholesterol >=240 mg/dL Recommendations of the NCEP Adult Treatment Panel for the following risk-cutoff thresholds for the [place] population. Performed By: #### L 500.4050, L500.4100, L100.0100, L501.4700 #### [facility] [address] [place], [address] Cholesterol in HDL [Mass/Vol] 39 mg/dL Low [facility] Comment on above: Order Comment: SEND LIVER AND LIPID TO WELL Result Comment: Cassidy onal Cholesterol Education Program (NCEP) guidelines: <40 mg/dL: Low HDL-cholesterol (major risk factor for CHD) >= 60 mg/dL: High HDL-cholesterol (negative risk factor for CHD) HDL-cholesterol is affected by a number of factors, e.g. smoking, exercise, hormones, sex and age. Performed By: #### L 500.4050, L500.4100, L100.0100, L501.4700 #### [facility] [address] [place], [address] Cholesterol in LDL [Mass/Vol] 133 mg/dL Normal [facility] Comment on above: Order Comment: SEND LIVER AND LIPID TO WELL Result Comment: Bord ewgeyc=018-391 mg/dL Higher Xyqj=625 mg/dL or greater Performed By: #### L 500.4050, L500.4100, L100.0100, L501.4700 #### [facility] [address] [place], [address] Cholesterol in VLDL [Mass/Vol] 47 mg/dL High 5-40 [facility] Comment on above: Order Comment: SEND LIVER AND LIPID TO WELL Performed By: #### L 500.4050, L500.4100, L100.0100, L501.4700 #### [facility] [address] [place], [address] Triglyceride [Mass/Vol] 235 mg/dL High [facility] Comment on above: Order Comment: SEND LIVER AND LIPID TO WELL Result Comment: The drugs N-Acetylcysteine and Metamizole may falsely depress this assay. Normal range: <150 mg/dL Borderline High: 150-199 mg/dL High: 200-499 mg/dL Very High: >500 mg/dL Performed By: #### L 500.4050, L500.4100, L100.0100, L501.4700 #### [facility] [address] [place], [address] CHOL Normal <=200 [facility] Comment on above: Result Comment: DUPL ICATE Performed By: #### L 500.3400, L500.4100 #### [facility] [address] [place], [address] CHOL:HDL Normal [facility] Comment on above: Result Comment: DUPL ICATE Performed By: #### L 500.3400, L500.4100 #### [facility] [address] [place], [address] CLDL Normal [facility] Comment on above: Result Comment: DUPL ICATE Performed By: #### L 500.3400, L500.4100 #### [facility] [address] [place], [address] HDL Normal [facility] Comment on above: Result Comment: DUPL ICATE Performed By: #### L 500.3400, L500.4100 #### [facility] [address] [place], [address] TRIG Normal [facility] Comment on above: Result Comment: DUPL ICATE Performed By: #### L 500.3400, L500.4100 #### [facility] [address] [place], [address] VLDL Normal 5-40 [facility] Comment on above: Result Comment: DUPL ICATE Performed By: #### L 500.3400, L500.4100 #### [facility] [address] [place], [address] Liver Profileon 01-02-2025 ALB Normal 3.5-5.0 [facility] Comment on above: Result Comment: DUPL ICATE Performed By: #### L 500.3400, L500.4100 #### [facility] [address] [place], [address] ALK PHOS Normal 40-129 [facility] Comment on above: Result Comment: DUPL ICATE Performed By: #### L 500.3400, L500.4100 #### [facility] [address] [place], [address] ALT Normal <=46 [facility] Comment on above: Result Comment: DUPL ICATE Performed By: #### L 500.3400, L500.4100 #### [facility] [address] [place], [address] AST Normal <=37 [facility] Comment on above: Result Comment: DUPL ICATE Performed By: #### L 500.3400, L500.4100 #### [facility] [address] [place], [address] D BILI Normal 0.00-0.30 [facility] Comment on above: Result Comment: DUPL ICATE Performed By: #### L 500.3400, L500.4100 #### [facility] [address] [place], [address] T BILI Normal 0.00-1.30 [facility] Comment on above: Result Comment: DUPL ICATE Performed By: #### L 500.3400, L500.4100 #### [facility] [address] [place], [address] T PROT Normal 5.9-8.4 [facility] Comment on above: Result Comment: DUPL ICATE Performed By: #### L 500.3400, L500.4100 #### [facility] [address] [place], [address] MCV (mean corpuscular volume ) determinationOrdered By: Maggie Alexander on 01-02-2025 MCV (RBC) [Entitic vol] 86.2 fL 80-94 [facility] Mean corpuscular hemoglobin (MCH) determinationOrdered By: Maggie Alexander on 01-02-2025 MCH (RBC) [Entitic mass] 29.2 pg 27.0-32.0 [facility] Mean corpuscular hemoglobin concentration (MCHC) determinationOrdered By: Maggie Alexander on 01-02-2025 MCHC (RBC) [Mass/Vol] 33.8 g/dL 32-36 [facility] Mean platelet volume determi nationOrdered By: Maggie Alexander on 01-02-2025 Platelet mean volume (Bld) [Entitic vol] 10.7 fL 6.2-12.0 [facility] Monocyte percentageOrdered B y: Maggie Alexander on 01-02-2025 Monocytes/100 WBC (Bld) 10.7 % High 0-10 [facility] Neutrophil percentageOrdered By: Maggie Alexander on 01-02-2025 Neutrophils/100 WBC (Bld) 55.4 % 47-70 [facility] Nucleated red blood cell per centageOrdered By: Maggie Alexander on 01-02-2025 Nucleated RBC/100 WBC (Bld) [Ratio] 0 % 0-5 [facility] Platelet countOrdered By: Ra grace Alexander on 01-02-2025 Platelets (Bld) [#/Vol] 249 10*3/uL 150-450 [facility] Potassium measurement (mass/ volume)Ordered By: Maggie Alexander on 01-02-2025 Potassium (Unsp spec) [Mass/Vol] 4.1 mmol/L 3.3-5.1 [facility] Comment on above: Hemolysis present, R esults could be affected. RBC Auto (Bld) [#/Vol]Ordere d By: Maggie Alexander on 01-02-2025 RBC (Bld) [#/Vol] 5.59 10*6/uL 4.6-6.2 [facility] Screening total cholesterol/ high density lipoprotein (HDL) cholesterol ratioOrdered By: Maggie Alexander on 01-02-2025 Cholesterol.total/Lorin sterol in HDL [Mass ratio] 5.64 {ratio} [facility] Serum creatinine measurement (mass/volume)Ordered By: Maggie Alexander on 01-02-2025 Creatinine [Mass/Vol] 1.13 mg/dL 0.70-1.20 [facility] Serum globulin measurementOr dered By: Maggie Alexander on 01-02-2025 Globulin (S) [Mass/Vol] 2.7 g/dL 2.2-4.2 [facility] Serum glucose measurement (m ass/volume)Ordered By: Maggie Alexander on 01-02-2025 Glucose [Mass/Vol] 100 mg/dL High 70-99 [facility] Serum or plasma alanine gunter otransferase (ALT) measurementOrdered By: Maggie Alexander on 01-02-2025 ALT [Catalytic activity/Vol] 21 U/L <47 [facility] Serum or plasma albumin cullen urement (mass/volume)Ordered By: Maggie Alexander on 01-02-2025 Albumin [Mass/Vol] 4.6 g/dL 3.5-5.0 [facility] Serum or plasma albumin/glob ulin mass ratioOrdered By: Maggie Alexander on 01-02-2025 Albumin/Globulin [Mass ratio] 1.7 {ratio} 0.9-2.4 [facility] Serum or plasma alkaline jose elias sphatase measurementOrdered By: Maggie Alexander on 01-02-2025 ALP [Catalytic activity/Vol] 62 U/L 40-129 [facility] Serum or plasma calcium cullen urement (mass/volume)Ordered By: Maggie Alexander on 01-02-2025 Calcium [Mass/Vol] 9.4 mg/dL 7.6-11.0 [facility] Serum or plasma cholesterol in HDL measurement (mass/volume)Ordered By: Maggie Alexander on 01-02-2025 Cholesterol in HDL [Mass/Vol] 39 mg/dL Low >40 [facility] Comment on above: National Cholesterol Education Program (NCEP) guidelines:<40 mg/dL: Low HDL-cholesterol (major risk factor for CHD)>= 60 mg/dL: High HDL-cholesterol (negative risk factor for CHD)HDL-cholesterol is affected by a number of factors, e.g. smoking, exercise, hormones, sex and age. Serum or plasma cholesterol measurement (mass/volume)Ordered By: Maggie Alexander on 01-02-2025 Cholesterol [Mass/Vol] 219 mg/dL High <201 [facility] Comment on above: Cholesterol level, D esirable <200 mg/dLBorderline high cholesterol 200-239 mg/dLHigh cholesterol >=240 mg/dLRecommendations of the NCEP Adult Treatment Panel for the following risk-cutoff thresholds for the [place] population. Serum or plasma urea nitroge n measurement (mass/volume)Ordered By: Maggie Alexander on 01-02-2025 Urea nitrogen [Mass/Vol] 14 mg/dL 4-19 [facility] Sodium levelOrdered By: Kassidy Alexander on 01-02-2025 Sodium [Moles/Vol] 136 mmol/L 133-145 [facility] Total proteinOrdered By: Ej Alexander on 01-02-2025 Protein [Mass/Vol] 7.3 g/dL 5.9-8.4 [facility] Triglycerides measurementOrd ered By: Maggie Benjamin on 01-02-2025 Triglyceride [Mass/Vol] 235 mg/dL High <199 [facility] Comment on above: The drugs N-Acetylcy steine and Metamizole may falsely depress this assay. Normal range: <150 mg/dLBorderline High: 150-199 mg/dLHigh: 200-499 mg/dLVery High: >500 mg/dL White blood cell (WBC) count Ordered By: Maggie Alexander on 01-02-2025 WBC (Bld) [#/Vol] 6.6 10*3/uL 4.4-11.0 [facility] PROLACTIN 4465on 09-10-2024 PROLACTIN 9.0 ng/mL Normal 3.9-22.7 [facility] Comment on above: Performed By: #### L 500.4050, L500.4100, L100.0100, L501.4700 #### [facility] [address] [place], [address] Testosterone, Total / Freeon 09-10-2024 TESTOSTER,FREE 11.82 ng/dL Normal 5.00-21.00 [facility] Comment on above: Order Comment: N Performed By: #### L 500.4050, L500.4100, L100.0100, L501.4700 #### [facility] [address] [place], [address] TESTOSTER,TOTAL 312 ng/dL Normal 264-916 [facility] Comment on above: Order Comment: N Result Comment: Adul t male reference interval is based on a population of healthy nonobese males (BMI <30) between 19 and 39 years old. Bryan et.al. JCEM 2017,102;2177-1136. PMID: 60231823. Performed By: #### L 500.4050, L500.4100, L100.0100, L501.4700 #### [facility] [address] [place], [address] TESTOSTERONE,%F 3.79 Normal 1.50-4.20 [facility] Comment on above: Order Comment: N Performed By: #### L 500.4050, L500.4100, L100.0100, L501.4700 #### [facility] [address] [place], [place], [address] Transferrinon 09-10-2024 Transferrin [Mass/Vol] 261 mg/dL Normal 177-329 [facility] Comment on above: Result Comment: Perf ormed at: - [facility] [address] [id number] Hospital Internship: Giovani Dupont PhD, Phone: [phone] Performed at: - [facility] [address] [id number] Hospital Internship: Alhaji Patel MD, Phone: [phone] Performed By: #### L 500.4050, L500.4100, L100.0100, L501.4700 #### [facility] [address] [place], [place], [id number] FSH and LHon 09-05-2024 FSH 2.2 mIU/mL Normal [facility] Comment on above: Result Comment: NORMAL REFERENCE RANGES FEMALE FOLLICULAR 2.3 - 12.6 mIU/mL MID-CYCLE PEAK 5.2 - 17.5 mIU/mL LUTEAL 1.7 - 12.9 mIU/mL POST-MENOPAUSAL ON MHT 5.9 - 72.8 mIU/mL NOT ON MHT 12.7 - 132.2 mlU/mL MALE 0.7 - 10.8 mIU/mL Performed By: #### L 500.4050, L500.4100, L100.0100, L501.4700 #### [facility] [address] [place], [place], [address] LH 2.1 mIU/mL Normal [facility] Comment on above: Result Comment: NORMAL REFERENCE RANGES FEMALE FOLLICULAR 1.9 - 26.2 mIU/mL MID-CYCLE PEAK 22.8 - 76.1 mIU/mL LUTEAL 0.6 - 16.6 mIU/mL POST-MENOPAUSAL ON MHT 1.1 - 52.4 mIU/mL NOT ON MHT 8.6 - 61.8 mIU/mL MALE 1.2 - 10.6 mIU/mL Performed By: #### L 500.4050, L500.4100, L100.0100, L501.4700 #### [facility] [address] [place], [address] Ferritinon 09-05-2024 Ferritin [Mass/Vol] 142 ng/mL Normal 26-388 [facility] Comment on above: Performed By: #### L 500.4050, L500.4100, L100.0100, L501.4700 #### [facility] [address] [place], [place], [id number] Lipoprotein Aon 08-25-2024 Lipoprotein a [Moles/Vol] 18.8 nmol/L Normal <75.0 [facility] Comment on above: Result Comment: Note : Values greater than or equal to 75.0 nmol/L may indicate an independent risk factor for CHD, but must be evaluated with caution when applied to non- populations due to the influence of genetic factors on Lp(a) across ethnicities. Performed at: [address] [id number] Hospital Internship: Giovani Dupont PhD, Phone: [phone] Performed By: #### L 500.4050, L500.4100, L100.0100, L501.4700 #### [facility] [address] [place], [place], [address] Testosterone, Serum Totalon 08-21-2024 Testosterone [Mass/Vol] 206.22 ng/dL Normal [facility] Comment on above: Result Comment: CENT RAL 90% REFERENCE RANGES MALE AGE <50 197.44 - 669.58 ng/dL MALE AGE > or = 50 187.72 - 684.19 ng/dL FEMALE AGE <50 8.38 - 35.01 ng/dL FEMALE AGE > or = 50 <7.00 - 35.92 ng/dL Effective as of 03/01/21 Performed By: #### L 509.3000 #### [facility] [address] [place], [address] Cardiology Visit Reporton Cardiology Visit Report [facility] [address] [place] [address] OFFICE VISIT Date of Service: 07/02/24 MR#: [id number] Acct: [id number] Name: ROBERT GARNICA Rep #: [id number] : 1980 Provider: LILIBETH jon Age/Sex: 44/M Location: [facility] Status: Signed HPI HPI History of Present Illness Details: 44-year-old man with no previous cardiac history who presents with episodic palpitations as well as elevation in his blood pressure. He says that he has had this a few times and he presented to the emergency room on January 13 with the above he was evaluated his electrolytes were noted to be normal other than mild low potassium cardiac enzymes were negative the CTA was negative and EKG did not demonstrate any significant abnormalities. He was noted to be rather hypertensive when he presented however with initial blood pressure 187/111 mmHg. His lipid profile in November 2023 demonstrated total cholesterol 270 HDL of 39 LDL 157. He denies chest, arm, jaw, or neck discomfort. He states infrequent palpitations. He denies bilateral lower extremity edema. He denies claudication. He denies shortness of breath with activity, shortness of breath at rest, orthopnea, or PND. He denies chronic cough. He denies significant, sudden weight gain. He states occasional lightheadedness when standing too quickly. He denies dizziness, near-syncope, or syncope. He denies blood in urine, blood in stool, or epistaxis. He denies fever with chills. He denies myalgia. He states fatigue and difficulty sleeping. His exercise level has remained stable. Intake Vital Signs 02/20/24 09:45 07/02/24 08:22 07/02/24 08:49 07/02/24 08:50 Height 6 ft 0.05 in 6 ft 0.05 in Weight: 220 lb BMI 29.7 BP 149/102 H 128/82 H 156/96 H Blood Pressure Location Lt brachial Lt brachial Lt brachial Position Sitting Sitting Sitting Respiration 16 Pulse 67 Pulse Source NIBP Comment Automated cuff Manual BP Repeated with automated cuff Intake Visit Reasons: 3 M FU Getter Filler Required: No Is patient in pain?: No Allergies aspirin Allergy (Verified 07/02/24 08:34) Rash bee venom protein (honey bee) Allergy (Verified 07/02/24 08:34) Anaphylaxis levofloxacin (From Levaquin) Allergy (Verified 07/02/24 08:34) Hives peanut Allergy (Verified 07/02/24 08:34) Hives Penicillins Allergy (Verified 07/02/24 08:34) Anaphylaxis shellfish derived Allergy (Verified 07/02/24 08:34) Hives Medications ???Medication ???Instructions ???Recorded ???Confirmed ???Type epinephrine 0.3 mg/0.3 mL 0.3 mg (0.3 mL) IM Q10M PRN 02/08/21 07/02/24 Rx injection, auto-injector (EpiPen anaphylaxis #2 ea 2-Jovan) fluticasone propionate 50 spray intranasal 01/14/24 07/02/24 History mcg/actuation nasal spray,suspension omeprazole 40 mg capsule,delayed 40 mg PO DAILY PRN 02/20/24 07/02/24 History release losartan 50 mg tablet 25 mg PO DAILY 07/02/24 History magnesium oxide 400 mg PO DAILY PRN 07/02/24 07/02/24 History Ejection fraction %: 55 Have you fallen in the past year?: No PFSH Medical History Gout ETOH abuse History of hypertension Chest pain Dysphagia Anxiety and depression GERD (gastroesophageal reflux disease) Hypertension Surgical History Hx of tooth extraction S/P ORIF (open reduction internal fixation) fracture Hx of knee surgery History of appendectomy Family History (Updated 07/02/24 @ 09:13 by Johnathon Villegas NP, [employer]) Father Myocardial infarction H/O endarterectomy S/P CABG x 3 Stent-45 Carotid artery disease Brother Myocardial infarction, Onset Age: 47 Afib Mother Afib CAD (coronary artery disease), Onset Age: 55 Grandfather Myocardial infarction Paternal- Late 40s Social History Smoking Status: Former smoker how long ago did patient quit smokin alcohol intake: current alcohol intake frequency: other Alcohol type: beer details: rarely substance use type: does not use caffeine: Yes Type: carbonated beverages Number of servings: 1, coffee Number of servings: 3 and tea Number of servings: 10 ROS Const Const: Positive for fatigue and difficulty sleeping; Negative for weakness Eyes Eyes: Negative for change in vision ENT ENT: Negative for dizziness or balance problems Cardio Chest Pain: No Palpitations: Yes (Infrequently-brief) feels like its: skipping Edema: None Muscle aches with walking: None Resp Respiratory: Negative for SOB with activity, SOB at rest or SOB orthopnea SOB lying down GI GI: Negative nausea or heartburn : Negative for hematuria or frequent nighttime urination/ nocturia Musc Musc: N (more content not included)... Normal [facility] Stress Test Echo w/o Contras ton 03-11-2024 Stress Test Echo w/o Contrast [facility] [address] [place] [address] Stress Test Echo w/o Contrast MR#: [id number] Acct: [id number] Name: ROBERT GARNICA Rep #: [id number] : 1980 43 From: Chi Carmichael MD Primary Care: Dr. Radha Ken, DO Status: R EG CLI Ordering Dr: Chi Carmichael MD Sex: M C Reason For Study: Palpitations Stress Results Protocol: Stress Echocardiogram Krish Protocol Maximum Predicted HR: 175 bpm Target HR: 149 bpm % Maximum Predicted HR: 95 % Heart Stage Duration Rate BP Comment (mm:ss) (bpm) Baseline 72 138/80Patient denies chest pain or palpitations Stage 1 3:00 120 156/86Patient denies chest pain or palpitations. Stage 2 3:00 127 194/88Patient denies chest pain or palpitations Stage 3 3:00 148 204/90Patient denies chest pain or palpitations. Shortness of breath, leg fatigue. Patient denies chest pain or Stage 4 1:01 166 / palpitations. Recovery 98 138/88Patient denies chest pain, palpitations, or shortness of breath. Stress Duration: 10:01 mm:ss Maximum Stress HR: 166 bpm Baseline Echocardiogram Findings Stress Echo Wall motion Data Resting WM Intermediate WM Stress WM ECHO/Stress Test Echo w/o Contrast Interpretation Summary Exercise stress echo. 43-year-old man with a history of hypertension and palpitations. Resting EKG demonstrates normal sinus rhythm with a rate of 75 bpm normal intervals are noted. The resting blood pressure is 138/80 mmHg. The patient exercised according to regular Krish protocol for total duration of 10 minutes completing 1 minute into stage IV of the Krish protocol the maximum heart rate attained was 166 bpm which was 94% of maximum predicted heart rate the maximum workload was 13.4 metabolic equivalents. At rest there were no ST or T wave changes noted suggest ischemia and at peak exercise upsloping ST changes only were noted which did not meet the criteria for ischemia. No clinical angina was noted the test was terminated due to fatigue. The peak blood pressure was 204/90 mmHg which was mildly hypertensive response to exercise. Stress echocardiogram. The resting echocardiogram performed demonstrated preserved left ventricular systolic function estimated at 55%. The posterior mitral valve leaflet appears to be mildly redundant with respect to the cords. With exercise there was thickening of all gordon reduction of low ventricular cavity size peaking of ejection fraction at 70% with no wall motion abnormalities present. Conclusion: Stress echo with no EKG or echocardiographic changes for ischemia at a high workload. Excellent functional aerobic capacity. Ordering Physician: Chi Carmichael Referring Physician: Chi Carmichael Performed By: Maggie Villegas, DARLENE, RVT 03/11/24 1640 Date Chi Carmichael MD CC: Dr. Chi Carmichael MD; Dr. Radha Ken DO Date Dictated: 03/11/24 1052 Date Transcribed: 03/11/24 1640 Printing Gray Cl[employer] Tender: Signed Normal [facility] 12 Lead EKG performed by [facility] on 02-20-2024 12 Lead EKG performed by [facility] [address] [place] [address] 12 Lead EKG performed by [facility] 02/20/24 0945 MR#: [id number] Acct: [id number] Name: ROBERT GARNICA Rep #: [id number] : 1980 43 From: Chi Carmichael MD Attending Dr: Dr. Chi Carmichael MD Status: DEP A MB Ordering Dr: Chi Carmichael MD Date: 02/20/24 Location: [facility] [place] [place] Sex: M C Admitted: BMS/12 Lead EKG performed by [facility] ECG Report Interpretation ---Sinus Rhythm WITHIN NORMAL LIMITSElectronically signed on 02/25/2024 at 13:23 by Chi Carmichael [email or web address] [employer] Version [id number] 02/25/24 1325 Date Chi Carmichael MD CC: Dr. Radha Ken, Date Dictated: 02/20/24 0945 Date Transcribed: 02/20/24 0945 Printing Gray [employer] Tender: [place] Signed Normal [facility] Cardiology Visit Reporton Cardiology Visit Report [facility] [address] [place] [address] OFFICE VISIT Date of Service: 02/20/24 MR#: [id number] Acct: [id number] Name: NAHUNROBERT Rep #: [id number] : 1980 Provider: Dr. Chi Carmichael MD Age/Sex: 43/M Location: [facility] Status: Signed HPI HPI History of Present Illness Details: 43-year-old man with no previous cardiac history who presents with episodic palpitations as well as elevation in his blood pressure. He says that he has had this a few times and he presented to the emergency room on January 13 with the above he was evaluated his electrolytes were noted to be normal other than mild low potassium cardiac enzymes were negative the CTA was negative and EKG did not demonstrate any significant abnormalities. He was noted to be rather hypertensive when he presented however with initial blood pressure 187/111 mmHg. He denies any chest pain with the above. He does have some fatigue and dizziness his lipid profile demonstrated total cholesterol 270 HDL of 39 LDL 157. His physical exam here is unremarkable his electrocardiogram demonstrates sinus rhythm with a rate of 75 bpm and no acute changes present. Intake Vital Signs 01/14/24 09:55 02/20/24 09:45 Height 6 ft 0.05 in 6 ft 0.05 in Weight: 219 lb 5 oz BMI 29.7 BP 156/101 H Blood Pressure Location Lt brachial Position Sitting Respiration 16 Pulse 65 Pulse Source Monitor Intake Visit Reasons: [facility] ER 01/13 CP HTN Getter Filler Required: No Accompanied by: Is patient in pain?: No Allergies aspirin Allergy (Verified 02/20/24 09:47) Rash bee venom protein (honey bee) Allergy (Verified 02/20/24 09:47) Anaphylaxis levofloxacin (From Levaquin) Allergy (Verified 02/20/24 09:47) Hives peanut Allergy (Verified 02/20/24 09:47) Hives Penicillins Allergy (Verified 02/20/24 09:47) Anaphylaxis shellfish derived Allergy (Verified 02/20/24 09:47) Hives Medications ???Medication ???Instructions ???Recorded ???Confirmed ???Type epinephrine 0.3 mg/0.3 mL 0.3 mg (0.3 mL) IM Q10M PRN 02/08/21 02/20/24 Rx injection, auto-injector (EpiPen anaphylaxis #2 ea 2-Jovan) fluticasone propionate 50 spray intranasal 01/14/24 02/20/24 History mcg/actuation nasal spray,suspension carvedilol 3.125 mg tablet 3.125 mg PO DAILY PRN 02/20/24 01/25/24 History losartan 50 mg tablet 50 mg PO DAILY #90 tabs 02/20/24 02/20/24 Rx omeprazole 40 mg capsule,delayed 40 mg PO DAILY PRN 02/20/24 02/20/24 History release Have you fallen in the past year?: No PFSH Medical History Gout ETOH abuse History of hypertension Chest pain Dysphagia Anxiety and depression GERD (gastroesophageal reflux disease) Hypertension Surgical History Hx of tooth extraction S/P ORIF (open reduction internal fixation) fracture Hx of knee surgery History of appendectomy Family History Father Myocardial infarction H/O endarterectomy S/P CABG x 3 Brother Myocardial infarction Afib Mother Afib CAD (coronary artery disease) Social History Smoking Status: Former smoker ROS Const Const: Positive for fatigue and difficulty sleeping; Negative for weakness, headache(s) or daytime sleepiness ENT ENT: Positive for dizziness; Negative for headache(s) or Nosebleed/epistaxis Cardio Chest Pain: No Palpitations: Yes (fluttering and then BP increases and SOB) feels like its: fast and thumping Edema: None Resp Respiratory: Negative for SOB with activity, SOB at rest, SOB orthopnea SOB lying down or Cough GI GI: Negative nausea, vomiting or heartburn Neuro Neuro: Positive for dizziness, lightheadedness and near syncope; Negative for headache(s) or weakness Endo Endo: Positive for fatigue Cardiology Exam Const Appearance: cooperative, healthy appearing, no acute distress, well developed and well groomed Nutritional Appearance: average body habitus and well nourished Orientation: alert, awake and oriented x3 Head Head: normal to inspection, normocephalic and atraumatic Ears: hearing grossly normal bilaterally and external ears normal Nose: external nose normal, nares normal, nasal mucous membranes and turbinates normal, septum normal and no nasal discharge Face and Sinus: face symmetric Mouth: oral mucosae normal, tongue normal, oropharynx normal and moist mucous membranes Teeth and gingiva: dentition normal Throat: posterior oropharynx normal, tonsils normal and uvula midline Eyes General: appearance normal, both eyes and all related structures Eyelids: eyelids normal Conjunctivae: conjunctivae normal (more content not included)... Normal [facility] 12 Lead EKGon 01-14-2024 12 Lead EKG [facility] Cardiovascular Services [address] [place] [address] 12 Lead EKG 01/14/24 1011 MR#: [id number] Acct: [id number] Name: ROBERT GARNICA Rep #: [id number] : 1980 43 From: Manuel Hill MD Attending Dr: Status: DEP ER Ordering Dr: Cathy Mcfadden DO Date: 01/14/24 Location: ED Sex: M C Admitted: Test Reason : Blood Pressure : / mmHG Vent. Rate : 083 BPM Atrial Rate : 083 BPM P-R Int : 140 ms QRS Dur : 096 ms QT Int : 368 ms P-R-T Axes : 028 041 013 degrees QTc Int : 432 ms Normal sinus rhythm Normal ECG Confirmed by Manuel Hill ([id number]), editor newspaper MARITA JEAN BAPTISTE ([id number]) on 01/15/2024 9:07:42 AM Referred By: VELASQUEZ Confirmed By:Manuel Hill 01/15/24 0907 Date Manuel Hill MD CC: Dr. Cathy Mcfadden DO; Dr. Radha Ken DO Signed Normal [facility] Basic Metabolic Profile (BMP )on 01-14-2024 BUN/CRE 6.2 RATIO Low 10-20 [facility] Comment on above: Order Comment: 1 Y Performed By: #### L 300.8000, L501.5425, L500.2500, L100.0100, L300.4310, L300.3900 #### [facility] [address] [place], [address] CA,Total 9.5 mg/dL Normal 8.5-10.1 [facility] Comment on above: Order Comment: 1 Y Performed By: #### L 300.8000, L501.5425, L500.2500, L100.0100, L300.4310, L300.3900 #### [facility] [address] [place], [address] Chloride [Moles/Vol] 106 mmol/L Normal 98-[address] [facility] Comment on above: Order Comment: 1 Y Performed By: #### L 300.8000, L501.5425, L500.2500, L100.0100, L300.4310, L300.3900 #### [facility] [address] [place], [address] CO2 [Moles/Vol] 25.0 mmol/L Normal 21.0-32.0 [facility] Comment on above: Order Comment: 1 Y Performed By: #### L 300.8000, L501.5425, L500.2500, L100.0100, L300.4310, L300.3900 #### [facility] [address] [place], [address] Creatinine [Mass/Vol] 1.29 mg/dL Normal 0.70-1.30 [facility] Comment on above: Order Comment: 1 Y Result Comment: The validity of the calculated GFR GFRAA in patients over 70 years has not been determined. Clinical correlation is essential. Performed By: #### L 300.8000, L501.5425, L500.2500, L100.0100, L300.4310, L300.3900 #### [facility] [address] [place], [address] ECRCL 89.38 ml/min Normal [facility] Comment on above: Order Comment: 1 Y Performed By: #### L 300.8000, L501.5425, L500.2500, L100.0100, L300.4310, L300.3900 #### [facility] [address] [place], [address] EST GFR - AA 77 mL/min Normal >60 [facility] Comment on above: Order Comment: 1 Y Result Comment: Afri can Tunisian GFR Calc Performed By: #### L 300.8000, L501.5425, L500.2500, L100.0100, L300.4310, L300.3900 #### [facility] [address] [place], [address] GAP 6 Normal 5-15 [facility] Comment on above: Order Comment: 1 Y Performed By: #### L 300.8000, L501.5425, L500.2500, L100.0100, L300.4310, L300.3900 #### [facility] [address] [place], [address] GFR/1.73 sq M.predicted among non-blacks MDRD (S/P/Bld) [Vol rate/Area] 64 mL/min/{1.73_m2} Normal >60 [facility] Comment on above: Order Comment: 1 Y Result Comment: Non- GFR Calc Performed By: #### L 300.8000, L501.5425, L500.2500, L100.0100, L300.4310, L300.3900 #### [facility] [address] [place], [address] Glucose [Mass/Vol] 115 mg/dL High 74-106 [facility] Comment on above: Order Comment: 1 Y Result Comment: Fast ing Glucose result from 100 to 125 mg/dL suggests IMPAIRED HOMEOSTASIS per A.D.A. criteria. Performed By: #### L 300.8000, L501.5425, L500.2500, L100.0100, L300.4310, L300.3900 #### [facility] [address] [place], [address] Potassium [Moles/Vol] 3.5 mmol/L Normal 3.5-5.1 [facility] Comment on above: Order Comment: 1 Y Performed By: #### L 300.8000, L501.5425, L500.2500, L100.0100, L300.4310, L300.3900 #### [facility] [address] [place], [address] Sodium [Moles/Vol] 137 mmol/L Normal 136-145 [facility] Comment on above: Order Comment: 1 Y Performed By: #### L 300.8000, L501.5425, L500.2500, L100.0100, L300.4310, L300.3900 #### [facility] [address] [place], [address] Urea nitrogen [Mass/Vol] 8 mg/dL Normal 7-18 [facility] Comment on above: Order Comment: 1 Y Performed By: #### L 300.8000, L501.5425, L500.2500, L100.0100, L300.4310, L300.3900 #### [facility] [address] [place], [address] CBC W/Diff, Automatedon 06- 0-4 Absolute Lymph 1.98 X10 3/uL Normal 0.83-4.51 [facility] Comment on above: Performed By: #### L 300.8000, L501.5425, L500.2500, L100.0100, L300.4310, L300.3900 #### [facility] [address] [place], [address] Absolute Neut 5.2 X10 3/uL Normal 2.0-7.7 [facility] Comment on above: Performed By: #### L 300.8000, L501.5425, L500.2500, L100.0100, L300.4310, L300.3900 #### [facility] [address] [place], [address] Basophils/100 WBC (Bld) 0.9 % Normal 0-1 [facility] Comment on above: Performed By: #### L 300.8000, L501.5425, L500.2500, L100.0100, L300.4310, L300.3900 #### [facility] [address] [place], [address] Eosinophils/100 WBC (Bld) 0.5 % Normal 0-5 [facility] Comment on above: Performed By: #### L 300.8000, L501.5425, L500.2500, L100.0100, L300.4310, L300.3900 #### [facility] [address] [facility] [place], [address] Erythrocyte distribution width (RBC) [Ratio] 13.1 % Normal 11.6-14.6 [facility] Comment on above: Performed By: #### L 300.8000, L501.5425, L500.2500, L100.0100, L300.4310, L300.3900 #### [facility] [address] [facility], [address] Hematocrit (Bld) [Volume fraction] 50.2 % Normal 40-54 [facility] Comment on above: Performed By: #### L 300.8000, L501.5425, L500.2500, L100.0100, L300.4310, L300.3900 #### [facility] [address] [place], [address] Hemoglobin (Bld) [Mass/Vol] 16.7 g/dL High 13.0-16.5 [facility] Comment on above: Performed By: #### L 300.8000, L501.5425, L500.2500, L100.0100, L300.4310, L300.3900 #### [facility] [address] [place], [address] IG% 0.100 Normal 0.0-0.9 [facility] Comment on above: Result Comment: IG% - Immature Granulocytes (promyelocytes, myelocytes and metamyelocytes) > 1% indicates that a LEFT SHIFT is Present. Performed By: #### L 300.8000, L501.5425, L500.2500, L100.0100, L300.4310, L300.3900 #### [facility] [address] [place], [address] Lymphocytes/100 WBC (Bld) 24.5 % Normal 19-41 [facility] Comment on above: Performed By: #### L 300.8000, L501.5425, L500.2500, L100.0100, L300.4310, L300.3900 #### [facility] [address] [place], [address] MCH (RBC) [Entitic mass] 29.6 pg Normal 27.0-32.0 [facility] Comment on above: Performed By: #### L 300.8000, L501.5425, L500.2500, L100.0100, L300.4310, L300.3900 #### [facility] [address] [place], [address] MCHC (RBC) [Mass/Vol] 33.3 g/dL Normal 32-36 [facility] Comment on above: Performed By: #### L 300.8000, L501.5425, L500.2500, L100.0100, L300.4310, L300.3900 #### [facility] [address] [place], [address] MCV (RBC) [Entitic vol] 88.8 fL Normal 80-94 [facility] Comment on above: Performed By: #### L 300.8000, L501.5425, L500.2500, L100.0100, L300.4310, L300.3900 #### [facility] [address] [place], [address] Monocytes/100 WBC (Bld) 9.2 % Normal 0-10 [facility] Comment on above: Performed By: #### L 300.8000, L501.5425, L500.2500, L100.0100, L300.4310, L300.3900 #### [facility] [address] [place], [address] Neutrophils/100 WBC (Bld) 64.8 % Normal 47-70 [facility] Comment on above: Performed By: #### L 300.8000, L501.5425, L500.2500, L100.0100, L300.4310, L300.3900 #### [facility] [address] [place], [address] Nucleated RBC (Bld) [#/Vol] 0 10*3/uL Normal 0-5 [facility] Comment on above: Performed By: #### L 300.8000, L501.5425, L500.2500, L100.0100, L300.4310, L300.3900 #### [facility] [address] [place], [address] Platelet mean volume (Bld) [Entitic vol] 11.0 fL Normal 6.2-12.0 [facility] Comment on above: Performed By: #### L 300.8000, L501.5425, L500.2500, L100.0100, L300.4310, L300.3900 #### [facility] [address] [place], [address] Platelets (Bld) [#/Vol] 255 10*3/uL Normal 150-450 [facility] Comment on above: Performed By: #### L 300.8000, L501.5425, L500.2500, L100.0100, L300.4310, L300.3900 #### [facility] [address] [place], [address] RBC (Bld) [#/Vol] 5.65 10*6/uL Normal 4.6-6.2 [facility] Comment on above: Performed By: #### L 300.8000, L501.5425, L500.2500, L100.0100, L300.4310, L300.3900 #### [facility] [address] [place], [address] RDW SD 42.6 fl Normal 35.1-43.9 [facility] Comment on above: Performed By: #### L 300.8000, L501.5425, L500.2500, L100.0100, L300.4310, L300.3900 #### [facility] [address], [address] WBC (Bld) [#/Vol] 8.1 10*3/uL Normal 4.4-11.0 [facility] Comment on above: Performed By: #### L 300.8000, L501.5425, L500.2500, L100.0100, L300.4310, L300.3900 #### [facility] [address] [place], [address] CTA Chest W/WO Contraston CTA Chest W/WO Contrast [facility] Imaging Services [address] [place] [address] CTA Chest W/WO Contrast MR#: [id number] Acct: [id number] Name: ROBERT GARNICA Rep #: [id number] : 1980 M 43 From: Alexander telles MD PCP: Dr. Radha Ken DO Status: REG ER Study: CTA Chest W/WO Contrast Date of Exam: 01/14/24 Exam# [id number] Ordering Dr: [place] [id number] STUDY: CTA CHEST REASON FOR EXAM: Male, 43 years old. Elevated D-dimer and chest pain. RADIATION DOSAGE (If Supplied By Facility): CTDIvol = ( 11.26 ) mGy, DLP = ( 484.83 ) mGycm TECHNIQUE: The examination was performed with the intravenous administration of IV 100mL Isovue-370. Post-processing of the angiographic images was performed, with multiplanar reformation and 3D reconstruction. Individualized dose optimization techniques were used for this CT. COMPARISON: Comparison is made with prior chest radiograph done earlier in the day. FINDINGS: Normal enhancement of the main pulmonary artery and right and left pulmonary arteries. Normal enhancement of the bilateral peripheral pulmonary arteries. There is no demonstrated pulmonary embolism. Normal thoracic aorta and visualized great vessels. There is no demonstrated aortic dissection. Normal heart and pericardium. Normal mediastinum. Normal hilar regions. Normal visualized trachea and bronchi. The lungs are well expanded. Minimal increased markings seen in the medial aspect of the right middle lobe abutting the cardiac border. Normal pleura. Normal chest wall structures. Normal osseous structures. Normal visualized upper abdomen. CT/CTA Chest W/WO Contrast IMPRESSION: Normal CTA chest examination, without a demonstrated pulmonary embolism or arterial dissection. Minimal increased markings are seen along the medial aspect of the right middle lobe abutting the right cardiac border. Electronically Signed: Alexander Arroyo MD at 12:14 EDT Reading Location ID and State: [facility] / MD , Service support , CC: Dr. Cathy Mcfadden DO; Dr. Radha Ken DO [employer] Tender: Signed Normal [facility] Chest 1 View (Portable)on Chest 1 View (Portable) [facility] Imaging Services [address] [place], [place] [id number] Chest 1 View (Portable) MR#: [id number] Acct: [id number] Name: ROBERT GARNICA Rep #: [id number] : 1980 M 43 From: Alexander telles MD PCP: Dr. Radha Ken DO Status: REG ER Study: Chest 1 View (Portable) Date of Exam: 01/14/24 Exam# [id number] Ordering Dr: [place] [id number] STUDY: X-RAY CHEST REASON FOR EXAM: Male, 43 years old. Chest pain TECHNIQUE: Single AP portable view of the chest. COMPARISON: Comparison is made with prior study December 2018. FINDINGS: EKG electrodes are seen. Questionable early right lower lobe infiltrate. There is no demonstrated pleural abnormality. Normal size heart. Normal mediastinum and sky. Normal visualized pulmonary arteries. Normal visualized aortic arch and descending thoracic aorta. Normal visualized thoracic spine. Normal visualized ribs, clavicles, and shoulders. There is no demonstrated abnormality of the visualized soft tissue structures of the upper abdomen. RAD/Chest 1 View (Portable) IMPRESSION: Questionable early right lower infiltrate. Electronically Signed: Alexander Arroyo MD at 10:45 EDT , CC: Dr. Cathy Mcfadden DO; Dr. Radha Ken DO [employer] Tender: Signed Normal [facility] D-Dimer Quantitative (DVT/PE )on 01-14-2024 D-DIMER QUANT 0.95 FEU/ug/m Invalid Interpretation Code 0.27-0.49 [facility] Comment on above: Result Comment: D-Di himanshu ELEVATED (>0.49): Additional studies and clinical assessments are indicated to conclude diagnosis of: Deep Vein Thrombosis (DVT) or Pulmonary Embolism (PE) CRITICAL VALUE VERIFIED. CALLED TO [facility] 01/14/24 May3 Tahmina Quijano. RESULTS READ BACK BY SAME. Performed By: #### L 500.4050, L500.4100, L100.0100, L501.4700 #### [facility] [address] [place], [address] Emergency Department Summary on 01-14-2024 Emergency Department Summary [facility] Medical Records Department [address] [place] [address] Emergency Department Summary 01/14/24 MR#: [id number] Acct: [id number] Name: ROBERT GARNICA Rep #: [id number] : 1980 43 From: Cathy Mcfadden DO PCP: Dr. Radha Ken, DO Status:DEP ER Location: ED HPI History of Present Illness Chief Complaint: Chest Pain Informant: patient Onset/Context/Timing Onset: Today Activity at onset: sudden Timing: Continuous Quality: Positive for Dull Location: Substernal Worsened By: Exertion (Standing, walking) Relieved By: Nothing Associated Symptoms: Positive for Dyspnea, Lightheadedness and Palpitations; Negative for Nausea, Vomiting, Diaphoresis, Cough, Fever or Acid Reflux Narrative Narrative: Patient presents with chest pain that began today. Patient states it began rather suddenly. Patient describes his pain as dull. Patient states it is over the lower substernal area. Patient states it is worse with standing and walking. Patient states nothing makes it better. Patient admits to some lightheadedness and palpitations with the pain. Patient also admits to some shortness of breath. Patient admits to some tingling into his left arm. Patient denies any nausea or vomiting. Patient denies any diaphoresis. Patient admits to some pain in the left side of his neck and pain in his back. Patient also admits to mild headache. CVD Risk Factors: Positive for Hypertension and Family History 1' Hypercholesterolemia or Smoking PE Risk Factors: Negative for Recent Travel/Surgery, Recent Immobilization, Prior DVT or PE, Cancer or OCP + Smoking + >/=35 PFSH PFSH Medical History (Updated 01/14/24 @ 13:[address] Cathy Mcfadden, ) GERD (gastroesophageal reflux disease) Hypertension Home Medications ???Medication ???Instructions ???Recorded ???Last Taken ???Type epinephrine 0.3 mg/0.3 mL 0.3 mg (0.3 mL) IM Q10M PRN 02/08/21 Unknown Rx injection, auto-injector (EpiPen anaphylaxis #2 ea 2-Jovan) omeprazole 40 mg capsule,delayed 40 mg PO DAILY 07/20/21 Unknown History release fluticasone propionate 50 spray intranasal 01/14/24 Unknown History mcg/actuation nasal spray,suspension Allergy/AdvReac Type Severity Reaction Status Date / Time aspirin Allergy Rash Verified 01/14/24 09:54 bee venom protein (honey bee) Allergy Anaphylaxis Verified 01/14/24 09:54 levofloxacin (From Levaquin) Allergy Hives Verified 01/14/24 09:54 peanut Allergy Hives Verified 01/14/24 09:54 Penicillins Allergy Anaphylaxis Verified 01/14/24 09:54 shellfish derived Allergy Hives Verified 01/14/24 09:54 Surgical History (Updated 01/14/24 @ 11:[address] Cathy Mcfadden DO) Hx of tooth extraction S/P ORIF (open reduction internal fixation) fracture Hx of knee surgery History of appendectomy Social History Smoking Status: Former smoker ROS ROS ED Constitutional Constitutional ED: Denies chills or fever(s) Eyes Eyes: Denies blurry vision or change in vision ENT ENT ED: Reports rhinorrhea; Denies sore throat Cardiovascular Cardiovascular: Reports chest pain and palpitations Respiratory/Chest Respiratory/Chest: Reports dyspnea; Denies cough Gastrointestinal Gastrointestinal: Denies abdominal pain, nausea or vomiting Genitourinary Genitourinary ED: Reports urinary frequency; Denies dysuria or hematuria Musculoskeletal Musculoskeletal: Reports back pain and neck pain Integumentary Denies abscess or rash Neurologic Neurologic: Reports headache(s); Denies weakness Allergic/Immunologic Allergic/Immunologic ED: Denies mouth swelling or urticaria EXAM Physical Exam Const Vital Signs: 01/14/24 09:55 01/14/24 10:20 01/14/24 11:08 Temperature 97.4 F L Temperature Source Temporal Pulse Rate 76 71 Respiratory Rate 19 H 16 Blood Pressure 187/111 H 164/108 H Blood Pressure Mean 136 126 Pulse Ox 100 96 98 Oxygen Delivery Method Room Air Room Air 01/14/24 12:00 01/14/24 12:56 Temperature Temperature Source Pulse Rate 79 75 Respiratory Rate 16 18 Blood Pressure 150/100 H 163/103 H Blood Pressure Mean 116 123 Pulse Ox 96 98 Oxygen Delivery Method Room Air Room Air Positive well nourished and well developed General Appearance ED: well developed and NAD HEENT Reports moist mucous membranes Neck supple and no JVD Resp normal respiratory effort and clear to auscultation bilaterally Cardio regular rate and regular rhythm GI soft to palpation, non-tender and non-distended Extremity normal to inspection General Extremety ED: Negative for edema or tenderness General Extremity: Negative for edema Neuro oriented x3, CN's II-XII intact bilaterally and no sensory deficits noted Sensorium / Orientation (more content not included)... Normal [facility] L501.4020on 01-14-2024 TROPONIN-I HS 5 pg/mL Normal 3.0-78.0 [facility] Comment on above: Result Comment: Plea se Note: New Test Units and Gender Specific Reference Ranges. For more information see Policy Stat Procedure Universal High Sensitivity Troponin (TNIH) and attachments. Performed By: #### L 500.4050, L500.4100, L100.0100, L501.4700 #### [facility] [address] [place], [address] L501.5425on 01-14-2024 TROPONIN-I HS 5 pg/mL Normal 3.0-78.0 [facility] Comment on above: Order Comment: 1Y Result Comment: Plepalak dykes Note: New Test Units and Gender Specific Reference Ranges. For more information see Policy Stat Procedure Universal High Sensitivity Troponin (TNIH) and attachments. Performed By: #### L 500.4050, L500.4100, L100.0100, L501.4700 #### [facility] [address] [place], [address] Partial Thromboplast Timeon 01-14-2024 aPTT Coag (Bld) [Time] 29.8 s Normal 24.1-36.2 [facility] Comment on above: Performed By: #### L 500.4050, L500.4100, L100.0100, L501.4700 #### [facility] [address] [place], [address] Prothrombin Time w/INRon INR Coag (PPP) [Relative time] 1.0 {INR} Normal [facility] Comment on above: Performed By: #### L 500.4050, L500.4100, L100.0100, L501.4700 #### [facility] [address] [place], [address] PT Coag (PPP) [Time] 12.8 s Normal 11.7-14.[address] [facility] Comment on above: Performed By: #### L 500.4050, L500.4100, L100.0100, L501.4700 #### [facility] [address] [place], [address] Absolute lymphocyte countOrd ered By: Radha Ken on 11-24-2023 Lymphocytes Auto (Unsp spec) [#/Vol] 1.94 10*3/uL 0.83-4.51 [facility] Automated lymphocyte count a s percentage of total leukocytesOrdered By: Radha Ken on 11-24-2023 Lymphocytes/100 WBC Auto (Unsp spec) 30.4 % 19-41 [facility] Basophil percentageOrdered B y: Radha Ken on 11-24-2023 Basophils/100 WBC (Bld) 0.9 % 0-1 [facility] Bilirubin [Mass/Vol] 0.60 mg/dL 0.20-1.[address] [facility] Comment on above: For patients on eltr ombopag therapy, use of Dimension Universal TBIL is not recommended. Chloride [Moles/Vol] 104 mmol/L 98-[address] [facility] Cholesterol [Mass/Vol] 270 mg/dL <200 [facility] Comment on above: <200 mg/dL Desirable 200-240 mg/dL Borderline >240 mg/dL High Risk Eosinophils/100 WBC (Bld) 1.4 % 0-5 [facility] Glucose [Mass/Vol] 94 mg/dL 74-106 [facility] Hemoglobin (Bld) [Mass/Vol] 16.6 g/dL 13.0-16.5 [facility] Monocytes/100 WBC (Bld) 9.7 % 0-10 [facility] Neutrophils (Bld) [#/Vol] 3.6 10*3/uL 2.0-7.7 [facility] Neutrophils/100 WBC (Bld) 56.8 % 47-70 [facility] Potassium [Moles/Vol] 4.0 mmol/L 3.5-5.1 [facility] Protein [Mass/Vol] 7.4 g/dL 6.4-8.2 [facility] Sodium [Moles/Vol] 138 mmol/L 136-145 [facility] Triglyceride [Mass/Vol] 369 mg/dL <199 [facility] Comment on above: The drugs N-Acetylcy steine and Metamizole may falsely depress this assay.Serum Triglycerides Reference Interval Normal <150 mg/dL Borderline high 150 - 199 mg/dL High 200 - 499 mg/dL Very High > or = 500 mg/dL WBC (Bld) [#/Vol] 6.4 10*3/uL 4.4-11.0 [facility] Determination of erythrocyte mean corpuscular volume (MCV)Ordered By: Radha Ken on 11-24-2023 MCV (RBC) [Entitic vol] 89.0 fL 80-94 [facility] Erythrocyte distribution wid th ratioOrdered By: Radha Ken on 11-24-2023 Erythrocyte distribution width (RBC) [Ratio] 12.7 % 11.6-14.6 [facility] Erythrocyte distribution wid th standard deviationOrdered By: Radha Ken on 11-24-2023 Erythrocyte distribution width (RBC) [Entitic vol] 41.4 fL 35.1-43.9 [facility] Hematocrit Auto (Bld) [Volum e fraction]Ordered By: Radha Ken on 11-24-2023 Hematocrit (Bld) [Volume fraction] 50.9 % 40-54 [facility] Immature granulocytes/100 WB C Auto (Bld)Ordered By: Radha Ken on 11-24-2023 Immature granulocytes/100 WBC (Bld) 0.800 % 0.0-0.9 [facility] Comment on above: IG% - Immature Granu locytes (promyelocytes, myelocytes and metamyelocytes) > 1% indicates that a LEFT SHIFT is Present. Laboratory - Chemistry and C hemistry - challengeOrdered By: Radha Ken on 11-24-2023 Albumin/Globulin [Mass ratio] 1.2 {ratio} 0.9-2.4 [facility] ALP [Catalytic activity/Vol] 56 U/L 45-117 [facility] ALT [Catalytic activity/Vol] 50 U/L 16-61 [facility] Cholesterol in HDL [Mass/Vol] 39 mg/dL >40 [facility] Comment on above: The drugs N-Acetylcy steine and Metamizole may falsely depress this assay. Reference Range HDL <40 mg/dL Low HDL Cholesterol HDL >or= 60 mg/dL High HDL Cholesterol Cholesterol in LDL [Mass/Vol] 157 mg/dL 0-130 [facility] CO2 [Moles/Vol] 29.0 mmol/L 21.0-32.0 [facility] Globulin (S) [Mass/Vol] 3.3 g/dL 2.2-4.2 [facility] Urea nitrogen/Creatinine [Mass ratio] 10.8 mg/mg 10-20 [facility] Laboratory - Hematology and Cell countsOrdered By: Radha Ken on 11-24-2023 MCH (RBC) [Entitic mass] 29.0 pg 27.0-32.0 [facility] MCHC (RBC) [Mass/Vol] 32.6 g/dL 32-36 [facility] Nucleated RBC/100 WBC (Bld) [Ratio] 0 % 0-5 [facility] Platelet mean volume (Bld) [Entitic vol] 11.1 fL 6.2-12.0 [facility] Platelets (Bld) [#/Vol] 272 10*3/uL 150-450 [facility] No Panel InformationOrdered By: Radha Ken on 11-24-2023 Estimated GFR (MDRD) Amer 101 mL/min >60 [facility] Comment on above: GFR Calc Estimated GFR (MDRD) Non-Af Amer 84 mL/min >60 [facility] Comment on above: Non- GFR Calc VLDL Cholesterol 74 mg/dL 5-40 [facility] RBC Auto (Bld) [#/Vol]Ordere d By: Radha Ken on 11-24-2023 RBC (Bld) [#/Vol] 5.72 10*6/uL 4.6-6.2 [facility] Serum or plasma calcium cullen urement (mass/volume)Ordered By: Radha Ken on 11-24-2023 Calcium [Mass/Vol] 9.1 mg/dL 8.5-10.1 [facility] Serum or plasma creatinine m easurement (mass/volume)Ordered By: Radha Ken on 11-24-2023 Creatinine [Mass/Vol] 1.02 mg/dL 0.70-1.30 [facility] Comment on above: The validity of the calculated GFR & GFRAA in patients over 70 years has not been determined. Clinical correlation is essential. Serum or plasma urea nitroge n measurement (mass/volume)Ordered By: Radha Ken on 11-24-2023 Urea nitrogen [Mass/Vol] 11 mg/dL 7-18 [facility] Serum or plasma uric acid me asurement (mass/volume)Ordered By: Radha Ken on 11-24-2023 Urate [Mass/Vol] 7.6 mg/dL 3.5-7.2 [facility] Comment on above: The drugs N-Acetylcy steine and Metamizole may falsely depress this assay. Thin prep Papanicolaou smear with manual screeningOrdered By: Radha Ken on 11-24-2023 Thin prep Papanicolaou smear with manual screening 4.1 g/dL 3.2-5.0 [facility] Thin prep Papanicolaou smear with manual screening 24 U/L 15-37 [facility] Thin prep Papanicolaou smear with manual screening 5 5-15 [facility] Basophil percentageOrdered B y: Dr. Ken on 09-15-2022 Bilirubin [Mass/Vol] 0.70 mg/dL 0.20-1.[address] [facility] Comment on above: For patients on eltr ombopag therapy, use of Dimension Universal TBIL is not recommended. Chloride [Moles/Vol] 104 mmol/L 98-[address] [facility] Cholesterol [Mass/Vol] 234 mg/dL <200 [facility] Comment on above: <200 mg/dL Desirable 200-240 mg/dL Borderline >240 mg/dL High Risk Glucose [Mass/Vol] 97 mg/dL 74-106 [facility] Potassium [Moles/Vol] 4.3 mmol/L 3.5-5.1 [facility] Protein [Mass/Vol] 7.9 g/dL 6.4-8.2 [facility] Sodium [Moles/Vol] 140 mmol/L 136-145 [facility] Triglyceride [Mass/Vol] 231 mg/dL <199 [facility] Comment on above: The drugs N-Acetylcy steine and Metamizole may falsely depress this assay.Serum Triglycerides Reference Interval Normal <150 mg/dL Borderline high 150 - 199 mg/dL High 200 - 499 mg/dL Very High > or = 500 mg/dL Laboratory - Chemistry and C hemistry - challengeOrdered By: Dr. Ken on 09-15-2022 ALP [Catalytic activity/Vol] 59 U/L 45-117 [facility] ALT [Catalytic activity/Vol] 29 U/L 16-61 [facility] CO2 [Moles/Vol] 28.0 mmol/L 21.0-32.0 [facility] Globulin (S) [Mass/Vol] 3.5 g/dL 2.2-4.2 [facility] Urea nitrogen/Creatinine [Mass ratio] 15.1 mg/mg 10-20 [facility] No Panel InformationOrdered By: Dr. Ken on 09-15-2022 Estimated GFR (MDRD) Amer 97 mL/min >60 [facility] Comment on above: GFR Calc Estimated GFR (MDRD) Non-Af Amer 81 mL/min >60 [facility] Comment on above: Non- GFR Calc Serum or plasma albumin cullen urement (mass/volume)Ordered By: Dr. Ken on 09-15-2022 Albumin [Mass/Vol] 4.4 g/dL 3.2-5.0 [facility] Serum or plasma albumin/glob ulin mass ratioOrdered By: Dr. Ken on 09-15-2022 Albumin/Globulin [Mass ratio] 1.3 {ratio} 0.9-2.4 [facility] Serum or plasma calcium cullen urement (mass/volume)Ordered By: Dr. Ken on 09-15-2022 Calcium [Mass/Vol] 9.5 mg/dL 8.5-10.1 [facility] Serum or plasma cholesterol in HDL measurement (mass/volume)Ordered By: Dr. Ken on 09-15-2022 Cholesterol in HDL [Mass/Vol] 40 mg/dL >40 [facility] Comment on above: The drugs N-Acetylcy steine and Metamizole may falsely depress this assay. Reference Range HDL <40 mg/dL Low HDL Cholesterol HDL >or= 60 mg/dL High HDL Cholesterol Serum or plasma cholesterol in VLDL measurement (mass/volume)Ordered By: Dr. Ken on 09-15-2022 Cholesterol in VLDL [Mass/Vol] 46 mg/dL 5-40 [facility] Serum or plasma creatinine m easurement (mass/volume)Ordered By: Dr. Ken on 09-15-2022 Creatinine [Mass/Vol] 1.06 mg/dL 0.70-1.30 [facility] Comment on above: The validity of the calculated GFR & GFRAA in patients over 70 years has not been determined. Clinical correlation is essential. Serum or plasma low density lipoprotein (LDL) cholesterol measurement (mass/volume)Ordered By: Dr. Ken on 09-15-2022 Cholesterol in LDL [Mass/Vol] 148 mg/dL 0-130 [facility] Serum or plasma urea nitroge n measurement (mass/volume)Ordered By: Dr. Ken on 09-15-2022 Urea nitrogen [Mass/Vol] 16 mg/dL 7-18 [facility] Serum or plasma uric acid me asurement (mass/volume)Ordered By: Dr. Ken on 09-15-2022 Urate [Mass/Vol] 7.6 mg/dL 3.5-7.2 [facility] Comment on above: The drugs N-Acetylcy steine and Metamizole may falsely depress this assay. Thin prep Papanicolaou smear with manual screeningOrdered By: Dr. Ken on 09-15-2022 Thin prep Papanicolaou smear with manual screening 17 U/L 15-37 [facility] Thin prep Papanicolaou smear with manual screening 8 5-15 [facility] Absolute lymphocyte counton 04-08-2022 Lymphocytes Auto (Unsp spec) [#/Vol] 2.31 10*3/uL 0.83-4.51 [facility] Work Phone: Basophil percentageon 2021 Basophils/100 WBC (Bld) 1.2 % 0-1 [facility] Work Phone: Bilirubin [Mass/Vol] 0.60 mg/dL 0.20-1.[address] [facility] Work Phone: Comment on above: For patients on eltr ombopag therapy, use of Dimension Universal TBIL is not recommended. Chloride [Moles/Vol] 102 mmol/L 98-[address] [facility] Work Phone: Cholesterol [Mass/Vol] 253 mg/dL <200 [facility] Work Phone: Comment on above: <200 mg/dL Desirable 200-240 mg/dL Borderline >240 mg/dL High Risk Eosinophils/100 WBC (Bld) 1.5 % 0-5 [facility] Work Phone: Glucose [Mass/Vol] 98 mg/dL 74-106 [facility] Work Phone: Neutrophils (Bld) [#/Vol] 4.7 10*3/uL 2.0-7.7 [facility] Work Phone: Neutrophils/100 WBC (Bld) 57.9 % 47-70 [facility] Work Phone: Potassium [Moles/Vol] 4.2 mmol/L 3.5-5.1 [facility] Work Phone: Comment on above: Slight Hemolysis, Re sult may be falsely increased. Protein [Mass/Vol] 7.7 g/dL 6.4-8.2 [facility] Work Phone: Sodium [Moles/Vol] 138 mmol/L 136-145 [facility] Work Phone: [phone] Triglyceride [Mass/Vol] 447 mg/dL <199 [facility] Work Phone: Comment on above: The drugs N-Acetylcy steine and Metamizole may falsely depress this assay. TRIGLYCERIDE IS GREATER THAN 400 mg/dL. LDL RESULT IS INVALID AND WILL NOT BE REPORTED.Serum Triglycerides Reference Interval Normal <150 mg/dL Borderline high 150 - 199 mg/dL High 200 - 499 mg/dL Very High > or = 500 mg/dL WBC (Bld) [#/Vol] 8.1 10*3/uL 4.4-11.0 [facility] Work Phone: Blood erythrocytes count (nu mber/volume)on 04-08-2022 RBC (Bld) [#/Vol] 5.76 10*6/uL 4.6-6.2 [facility] Work Phone: Blood hemoglobin measurement (mass/volume)on 04-08-2022 Hemoglobin (Bld) [Mass/Vol] 17.2 g/dL 13.0-16.5 [facility] Work Phone: Blood lymphocytes/100 leukoc yteson 04-08-2022 Lymphocytes/100 WBC (Bld) 28.7 % 19-41 [facility] Work Phone: Blood monocytes/100 leukocyt eson 04-08-2022 Monocytes/100 WBC (Bld) 10.5 % 0-10 [facility] Work Phone: Blood platelet mean volumeon 04-08-2022 Platelet mean volume (Bld) [Entitic vol] 10.8 fL 6.2-12.0 [facility] Work Phone: Determination of erythrocyte mean corpuscular volume (MCV)on 04-08-2022 MCV (RBC) [Entitic vol] 89.9 fL 80-94 [facility] Work Phone: Hematocrit Auto (Bld) [Volum e fraction]on 04-08-2022 Hematocrit (Bld) [Volume fraction] 51.8 % 40-54 [facility] Work Phone: Laboratory - Chemistry and C hemistry - challengeon 04-08-2022 ALP [Catalytic activity/Vol] 64 U/L 45-117 [facility] Work Phone: ALT [Catalytic activity/Vol] 74 U/L 16-61 [facility] Work Phone: CO2 [Moles/Vol] 27.0 mmol/L 21.0-32.0 [facility] Work Phone: Globulin (S) [Mass/Vol] 3.8 g/dL 2.2-4.2 [facility] Work Phone: Urea nitrogen/Creatinine [Mass ratio] 9.2 mg/mg 10-20 [facility] Work Phone: Laboratory - Hematology and Cell countson 04-08-2022 Erythrocyte distribution width (RBC) [Entitic vol] 42.2 fL 35.1-43.9 [facility] Work Phone: Erythrocyte distribution width (RBC) [Ratio] 12.9 % 11.6-14.6 [facility] Work Phone: Immature granulocytes/100 WBC (Bld) 0.200 % 0.0-0.9 [facility] Work Phone: Comment on above: IG% - Immature Granu locytes (promyelocytes, myelocytes and metamyelocytes) > 1% indicates that a LEFT SHIFT is Present. MCH (RBC) [Entitic mass] 29.9 pg 27.0-32.0 [facility] Work Phone: Nucleated RBC/100 WBC (Bld) [Ratio] 0 % 0-5 [facility] Work Phone: MCHC Auto (RBC) [Mass/Vol]on 04-08-2022 MCHC (RBC) [Mass/Vol] 33.2 g/dL 32-36 [facility] Work Phone: No Panel Informationon 04-08 Estimated GFR (MDRD) Amer 85 mL/min >60 [facility] Work Phone: Comment on above: GFR Calc Estimated GFR (MDRD) Non-Af Amer 70 mL/min >60 [facility] Work Phone: Comment on above: Non- GFR Calc Prostate Specific Antigen Screen 0.44 ng/mL 0.00-4.00 [facility] Work Phone: Comment on above: This test was perfor med using the TPSA assay method for the[employer] chemistry system. Values obtained with differentassay methods cannot be used interchangably.When changing PSA assays in the course of monitoring apatient, additional sequential testing should be carriedout to confirm baseline values. Platelets bldon 04-08-2022 Platelets (Bld) [#/Vol] 272 10*3/uL 150-450 [facility] Work Phone: Serum or plasma albumin cullen urement (mass/volume)on 04-08-2022 Albumin [Mass/Vol] 3.9 g/dL 3.2-5.0 [facility] Work Phone: Serum or plasma albumin/glob ulin mass ratioon 04-08-2022 Albumin/Globulin [Mass ratio] 1.0 {ratio} 0.9-2.4 [facility] Work Phone: Serum or plasma calcium cullen urement (mass/volume)on 04-08-2022 Calcium [Mass/Vol] 8.9 mg/dL 8.5-10.1 [facility] Work Phone: Serum or plasma cholesterol in HDL measurement (mass/volume)on 04-08-2022 Cholesterol in HDL [Mass/Vol] 37 mg/dL >40 [facility] Work Phone: Comment on above: The drugs N-Acetylcy steine and Metamizole may falsely depress this assay. Reference Range HDL <40 mg/dL Low HDL Cholesterol HDL >or= 60 mg/dL High HDL Cholesterol Serum or plasma cholesterol in VLDL measurement (mass/volume)on 04-08-2022 Cholesterol in VLDL [Mass/Vol] TNP [facility] Work Phone: Comment on above: Test not performed Serum or plasma creatinine m easurement (mass/volume)on 04-08-2022 Creatinine [Mass/Vol] 1.20 mg/dL 0.70-1.30 [facility] Work Phone: Comment on above: The validity of the calculated GFR & GFRAA in patients over 70 years has not been determined. Clinical correlation is essential. Serum or plasma low density lipoprotein (LDL) cholesterol measurement (mass/volume)on 04-08-2022 Cholesterol in LDL [Mass/Vol] TNP [facility] Work Phone: Comment on above: Test not performed Serum or plasma urea nitroge n measurement (mass/volume)on 04-08-2022 Urea nitrogen [Mass/Vol] 11 mg/dL 7-18 [facility] Work Phone: Serum or plasma uric acid me asurement (mass/volume)on 04-08-2022 Urate [Mass/Vol] 9.4 mg/dL 3.5-7.2 [facility] Work Phone: Comment on above: The drugs N-Acetylcy steine and Metamizole may falsely depress this assay. Thin prep Papanicolaou smear with manual screeningon 04-08-2022 Thin prep Papanicolaou smear with manual screening 36 U/L 15-37 [facility] Work Phone: Comment on above: Slight Hemolysis, Re sult may be falsely increased. Thin prep Papanicolaou smear with manual screening 9 5-15 [facility] Work Phone: CT NECK SOFT TISSUE W IVCONo n 07-15-2019 CT NECK SOFT TISSUE W IVCON * * *Final Report* * * DATE OF EXAM: Jul 15 2019 2:[facility] - CT NECK SOFT TISSUE W IVCON / PROCEDURE REASON: Oropharyngeal dysphagia * * * * Physician Interpretation * * * * CT NECK SOFT TISSUE W IVCON History: Oropharyngeal dysphagia Oral pharyngeal dysphagia Comparison: None Technique: A series of contiguous helical scans were performed from the skull base to the aortic arch following bolus injection of nonionic contrast: Contrast: Omnipaque 300. Contrast Dose: 100 cc Route of Administration: IV CT Radiation dose: Integrated Dose-length product (DLP) for this visit = 818 mGy*cm. CT Dose Reduction Employed: Automated exposure control(AEC) and iterative recon RESULT: Postoperative change: None apparent. Suprahyoid Neck: Nasopharynx and oropharynx appear normal. Parapharyngeal tissue planes are preserved. Oral cavity and floor of mouth appear normal within constraints of artifact from dental amalgam. The patient is edentulous aside from bilateral posterior mandibular molars. Parotid and submandibular spaces are normal. Roof Shingler spaces appear normal. Nasal cavities and paranasal sinuses are clear. There is leftward deviation of the anterior nasal septum which results in narrowing of the left anterior nasal cavity. Infrahyoid Neck: Hypopharynx, larynx, and imaged infraglottic trachea appear normal. Imaged upper esophagus is unremarkable. Thyroid gland is homogeneous without evidence of discrete nodule. Lymph Nodes: No cervical adenopathy by size criteria. Scattered normal sized lymph nodes without suspicious morphologic features. Carotid Space: No masses. Patent extracranial carotid systems and internal jugular veins bilaterally. Orbits and Skull Base: Orbital soft tissue planes are preserved. No evidence of an osteolytic or osteoblastic process in the skull base. Mastoid air cells and middle ear cavities are clear. Imaged intracranial contents: No abnormal intracranial enhancement, mass effect, or hydrocephalus. Cervical spine and remaining osseous structures: No discrete osteolytic or osteoblastic process. There are mild spondylotic changes in the visualized spine. Mild canal narrowing at C3-C4 from a central disc protrusion. No high-grade canal or neural foraminal stenosis. Lung apices: Imaged lung apices are clear of focal consolidation or mass. Other: Not applicable. IMPRESSION: Unremarkable CT of the neck without evidence of a soft tissue neck mass, collection, significant inflammatory change or pathologic cervical lymphadenopathy. Patent aerodigestive tract. [employer] Tender: MACO Transcribe Date/Time: Jul 15 2019 2:38P Dictated by : ADEN ERNST MD This examination was interpreted and the report reviewed and electronically signed by: ADEN ERNST MD on Jul 15 2019 2:47PM EST [id number] Normal [facility] PROGRESSon 07-15-2019 PROGRESS HNO ID: [id number] Author: Lilia Burkett (Tech) Service: ? Author Type: Art Manager Type: Progress Notes Filed: 07/15/2019 2:14 PM Note Text: Radiology Service Progress Note DATE OF SERVICE: July 15, 2019 TIME: 2:14 PM PATIENT IDENTITY VERIFICATION COMPLETED USING TWO (2) STANDARD IDENTIFIERS: Name and Date of confirmed by patient verbally. PATIENT GENDER DATA: Male PATIENT RELEVANT IMPLANT DATA REVIEWED: Yes ALLERGIES: Reviewed and unchanged CONTRAST ALLERGY: NO. EXAM: CT -CONTRAST INDUCED NEPHROPATHY RISK FACTORS: Not applicable CREATININE: No results found for: CREAT, EGFROTH, EGFRAA P.O.C.T. RESULTS: POC done: Yes, See Lab Tab July 15, 2019 TREATMENT: N/A PERIPHERAL IV DATA: Ambulatory: A peripheral IV was started in the Left antecubital site with a Angio cath: 22 gauge. RADIOLOGY DEPARTMENT: CT; Exam(s) Completed: Neck SIGNATURE: Lilia Thomas PATIENT NAME: Robert Garnica DATE: July 15, 2019 TIME: 2:14 PM Normal [facility] Acetylchol Rec/Blockon 07-11 Acetylchol Rec/Block <13 Normal <21 [facility] Comment on above: Performed By: #### C K, ACEBLC, ACHRA #### [facility] [address] [phone] #### ACEMOD #### [facility] [address] [place] [address] [phone] Acetylcholin Rec/Binon 07-11 INR Coag (Bld) [Relative time] {INR} Normal 0.0-0.5 [facility] Comment on above: Performed By: #### C K, ACEBLC, ACHRA #### [facility] [phone] #### ACEMOD #### [facility] [address] [place] [address] [phone] Acetylcholin Rec/Modon 07-11 INR Coag (Bld) [Relative time] 0 % Normal <=45 [facility] Comment on above: Result Comment: (NOT E) INTERPRETIVE INFORMATION: Acetylcholine Modulating Ab Negative .......... 0-45 percent modulating Positive .......... 46 percent or greater modulating Approximately 85-90 percent of patients with myasthenia gravis (MG) express antibodies to the acetylcholine receptor (AChR), which can be divided into binding, blocking, and modulating antibodies. Binding antibody can activate complement and lead to loss of AChR. Blocking antibody may impair binding of acetylcholine to the receptor, leading to poor muscle contraction. Modulating antibody causes receptor endocytosis resulting in loss of AChR expression, which correlates most closely with clinical severity of disease. Approximately 10-15 percent of individuals with confirmed myasthenia gravis have no measurable binding, blocking, or modulating antibodies. Test developed and characteristics determined by [employer]. See Compliance Statement B: [employer]/ Performed by [employer], [address] [place] [address] [email or web address], Tanmay Myers MD, Lab. Director Performed By: #### VINOD Bentley, ACHRA #### [facility] [address] [address] #### ACEMOD #### [facility] [address] [place] [address] [phone] CKon 07-11-2019 CK [Catalytic activity/Vol] 127 U/L Normal 51-298 [facility] Comment on above: Performed By: #### KINGSTON BentleyC, ACHRA #### [facility] [address] [address] #### ACEMOD #### [facility] [address] [place] [address] [phone] CNOVon 07-11-2019 CNOV Office Visit (NENJMN ) ROBERT GARNICA ([id number]) 1980 M Date Time Provider Department 07/11/19 3:00 PM PAOLO CRUZ During your visit today, we recorded the following information about you: Pulse Respiration Blood pressure Weight 73/minute 18/minute 132/83 93 kg Height 1.803 m Paolo Cruz MD 07/11/2019 4:24 PM Signed NEUROLOGY CONSULT [facility] Chief Complaint: Dysphagia. REQUESTING PHYSICIAN: Cathy Duke MD My final recommendations will be communicated to the requesting health care provider by way of the shared medical record for internal providers or letter via the [employer] for external providers.??? History of Present Illness: This is a 39 year old y.o. right handed male with history of dysphagia since 2003 who presents today for neurologic consultation. The patient reports dysphagia since 2003. Pt noted changes in swallowing the day after omari in 2003. He recalls chocking on food in AM after playing with hi son. He visited a local ED that day. He was reportedly seen by an ENT. Reportedly ENT work up was neg, then referred to a GI specialist. He was RX PPI for reflux. Repeat EGD was reportedly neg. He also saw an allergy medicine physician who could not find abn. Barium swallow testing was reportedly normal. He was then referred to a neurologist in 2007. He had a clinical exam and reportedly told him he had no evidence of a neurologic disease. In 2009 he had his teeth removed because ongoing issues with dental health and possible culprit for his swallowing problems. He does not use dentures because swallowing is more difficult. He currently blends all his food. Pt had an MRI of the brain in 2005 that reportedly showed no abnormalities. Pt believes he had an MRI of the brain this year that was unrevealing. Currently he notes worsening of swallowing when exposed to warm temperatures or later on during the day. No diplopia, ptosis, or dysarthria. No symptoms suggestive of myotonia. No hx of a NM disease in his family. He reports strong hx of cardiovascular disease in his family. Other symptoms- Intermittent arm and leg weakness. Some memory loss. ENT ordered a barium swallow test earlier this month. Review of Systems: Consitutional: No malaise, fever, chills, changes in weight. ENT: Normal hearing, no tinnitus. No nasal congestion or discharge. No sore throat, or changes in voice. Eye: No blurry vision, visual loss, diplopia. Cardiac: no chest pain, no edema. Respiratory: no shortness of breath, fever, or cough. GI: No abdominal pain, diarrhea. No reported weight loss or nausea/vomiting. : No urinary frequency, urgency or discomfort. No incontinence. Neurologic: Dysphagia to fluids and solids since 2003. Intermittent weakness. Musculoskeletal: Back pain. Endocrine: No problems tolerating cold or warm temperatures. No polyuria, polydipsia, or polyphagia. Psychiatric: No anxiety/depression. Integumentary:No skin rash. Hematologic/Lymphatic:N o bruising, bleeding, swelling. Allergic/Immunologic: No allergies or immunodeficiency. All other systems reviewed are negative. PAST MEDICAL HISTORY Diagnosis Date - Allergic rhinitis, cause unspecified - Deviated nasal septum - Dysphagia, unspecified(787.20) Current Outpatient Medications on File Prior to Visit Medication Sig - Omeprazole 40 mg capsule once daily. - loratadine 10 mg cap loratadine - budesonide(RHINOCORT AQUA 32 MCG/ACTUATION NASAL SPRAY) one to two sprays to each nostril once daily (Patient taking differently: Use in the nose as needed. ) - montelukast sodium(SINGULAIR 10 MG TAB) take one tablet at bedtime (Patient not taking: ) No current facility-administered medications on file prior to visit. ALLERGIES Allergen Reactions - Amoxicillin - Environemtal [Other] Dust mites grasses (December and January) weeds (March, April and May) ragweed (March, April and May) - Levaquin [Levofloxa* - Penicillins SOCIAL HISTORY: Patient is . He quit smoking in 2001. Robert reports his alcohol use as three beers a wee;. Before that he would drink 3 beers a day x 1 year, and before this he would drink only on the weekends. Family History Problem Relation Age of Onset - Heart Mother - Heart Father - Cancer Father - Allergies Mother - Allergies Father - Allergies Brother His brother has hx of UC. General exam: No acute distress BP 132/83 Pulse 73 Resp 18 Ht 5' 11 (1.80m) Wt 205 lb (93.0kg) BMI 28.60 kg/(m2). HEENT: AT/NC, PERRL, EOMI. No nasal discharge. EAC normal. S/p teeth extraction. Tonsils appear symmetric and not hypertrophic. Neck: supple, full range of motion. No lymphadenopathy. Heart: S1 S2 + Lungs: CTA. Abdomen: Bowel sounds present and normoactive. NT/ND. Endocrine: No thyromegaly. Lymphatic: No lymphadenopathy. Extremities: Normal ROM. No joint swelling, or redness. Normal peripheral pulses. Skin: No skin rash. Neurological exam: Mental status: Awake, alert and oriented x3; speech fluent with normal repetition, comprehension and naming. Cranial Nerves: PERRL, extraocular movements intact, light touch and pinprick are intact in V1-V3, face symmetric, tongue midline, sternocleidomastoid and trapezius 5/5 strength and normal bulk. Motor: Tone is normal in upper and lower extremities. Nl bulk. UE: bilateral deltoid 5/5, elbow flexion/extension 5/5, wrist flexion/extension 5/5, finger extensors 5/5, finger flexors 5/5, thumb abduction 5/5, dorsal intrinsics 5/5, palmar intrinsics 5/5. LE: bilateral hip flexion/extension 5/5, knee flexion/extension 5/5, ankle plantar/dorsi- flexion 5/5. Deep Tendon Reflexes: Bilateral brachioradialis 2+, biceps 2+, triceps 2+. Bilateral patella 2+, ankle 2+. Toes are downgoing bilaterally.Dominguez's neg. Sensory: Light touch and pinprick are preserved bilaterally. Vibration and joint position sense are preserved bilaterally. Coordination: Normal kagbyf-bucv-hzylni. Gait: Normal. DATA: Diagnostic tests reviewed for today's visit, films/specimens were personally reviewed by me: Most recent labs and imaging results. LABORATORIES: N/A Reportedly recent blood work was NL. IMAGING STUDIES: N/A IMPRESSION: This is a 39 year old y.o. right handed male presents today for evaluation of dysphagia that was noted a day after omari in 2003. He reports no other accompanying symptoms such as diplopia, ptosis, dysarthria. No changes in facial sensation. No hearing loss or vertigo. Pt saw ENT and GI. He had an MRI of the brain in 2005 that was reportedly neg. His clinical exam reveals no abnormalities. - Dysphagia etiology is unclear at this time since he has no other symptoms or neurologic findings suggestive of a primary neuromuscular disorder such as NMJ d/o (MG), or a myopathic process. A CN/CHEMICAL PREPARER d/o is not apparent on clinical examination. PLAN: MG ab, CK. CT neck soft tissue. A RNS/EMG study would be low yield based on clinical findings. Barium swallow test ordered by ENT. The patient will mail OSH MRI brain CD/report to us kilo. All questions and concerns were addressed during this visit. I spent 60 minutes in the visit, with more than 50% of the total zzsq-ol-yrbt time of the visit in counseling / coordination of care. Paolo Cruz MD Staff, Neurology and Neuromuscular Medicine Paolo Cruz MD 07/11/2019 3:37 PM Signed Blood work. CT neck/ soft tissue with contrast. Please have your primary care physician forward recent labs performed at her office. Please obtain MRI CD and report, mail it to: [facility] [address], [place] [id number] . Referring Provider: CATHY DUKE [[id number]] Allergies As of Date: 07/11/2019 Noted Allergy Reaction AMOXICILLIN 01/20/2008 environemtal [Other] 02/13/2008 Comments: Dust mites grasses (December and January) weeds (March, April and May) ragweed (March, April and May) LEVAQUIN (LEVOFLOXACIN) 01/20/2008 PENICILLINS 01/20/2008 Date Reviewed: 07/11/2019 Reviewed by: Mitali Boo - Fully Assessed Reason for Visit: New Patient [172] Primary Visit Diagnosis:Oropharyngeal dysphagia [R13.12] Other Visit Diagnosis:Weakness [R53.1] Order(s):ACETYLCHO R BIND AB [SQACHRA] Order #: [id number] FUTURE ACETYLCHO R BLOC AB [SQACEBLC] Order #: [id number] FUTURE ACETYLCHO R MOD AB [SQACEMOD] Order #: [id number] FUTURE CK CREATINE KINASE [SQCK] Order #: [id number] FUTURE CT NECK SOFT TISSUE W IVCON [[id number]] Order #: [id number] FUTURE iv contrast (will be provided with radiology test)Inject 1 Each intravenously one time only for [address] Neck W IVCON No IV access, insert saline lock prior to the sedation, infusion, injection for imaging exam. Discontinue saline lock post exam. If Pt. has a central line or IVAD, may access for administration according to line specific nursing protocol. Once exam is complete flush line and de-access according to line specific nursing protocol in the CT contrast administration guidelines link.Disp: 1 EachRfl: 0 Prescriptions as of 07/11/2019 Sig: OMEPRAZOLE 40 MG CAPSULE,JULISSA* once daily. LORATADINE 10 MG CAPSULE loratadine RHINOCORT AQUA 32 MCG/ACTUATI* one to two sprays to each nos* Patient taking differently: Use in the nose as needed. IV CONTRAST (RADIOLOGY PROCED* Inject 1 Each intravenously o* SINGULAIR 10 MG TABLET take one tablet at bedtime Patient not taking: Problem List As Of Date 07/11/2019 Noted Resolved ALLERGIC RHINITIS NOS [J30.9] 02/12/2008 DEVIATED NASAL SEPTUM [J34.2] 02/12/2008 Other instructions from your clinician: Blood work. CT neck/ soft tissue with contrast. Please have your primary care physician forward recent labs performed at her office. Please obtain MRI CD and report, mail it to: [facility] [address], [place] [id number] . Prescriptions ordered this encounter Disp Refills Start End IV CONTRAST (RADIOLOGY PROCEDURE) 1 Ea* 0 07/11/2019 07/11/2019 Class: In Office Route: INTRAVENOUS Sig: Inject 1 Each intravenously one time only for [address] Neck W IVCON No IV access, insert saline lock prior to the sedation, infusion, injection for imaging exam. Discontinue saline lock post exam. If Pt. has a central line or IVAD, may access for administration according to line specific nursing protocol. Once exam is complete flush line and de-access according to line specific nursing protocol in the CT contrast administration guidelines link. Encounter Status:Closed by PAOLO CRUZ MD on 07/11/19 Normal [facility] PROGRESSon 07-11-2019 PROGRESS HNO ID: [id number] Author: Paolo Cruz Service: ? Author Type: Physician Type: Progress Notes Filed: 07/11/2019 4:24 PM Note Text: NEUROLOGY CONSULT [facility] Chief Complaint: Dysphagia. REQUESTING PHYSICIAN: Cathy Duke MD My final recommendations will be communicated to the requesting health care provider by way of the shared medical record for internal providers or letter via the [employer] for external providers.??? History of Present Illness: This is a 39 year old y.o. right handed male with history of dysphagia since 2003 who presents today for neurologic consultation. The patient reports dysphagia since 2003. Pt noted changes in swallowing the day after omari in 2003. He recalls chocking on food in AM after playing with hi son. He visited a local ED that day. He was reportedly seen by an ENT. Reportedly ENT work up was neg, then referred to a GI specialist. He was RX PPI for reflux. Repeat EGD was reportedly neg. He also saw an allergy medicine physician who could not find abn. Barium swallow testing was reportedly normal. He was then referred to a neurologist in 2007. He had a clinical exam and reportedly told him he had no evidence of a neurologic disease. In 2009 he had his teeth removed because ongoing issues with dental health and possible culprit for his swallowing problems. He does not use dentures because swallowing is more difficult. He currently blends all his food. Pt had an MRI of the brain in 2005 that reportedly showed no abnormalities. Pt believes he had an MRI of the brain this year that was unrevealing. Currently he notes worsening of swallowing when exposed to warm temperatures or later on during the day. No diplopia, ptosis, or dysarthria. No symptoms suggestive of myotonia. No hx of a NM disease in his family. He reports strong hx of cardiovascular disease in his family. Other symptoms- Intermittent arm and leg weakness. Some memory loss. ENT ordered a barium swallow test earlier this month. Review of Systems: Consitutional: No malaise, fever, chills, changes in weight. ENT: Normal hearing, no tinnitus. No nasal congestion or discharge. No sore throat, or changes in voice. Eye: No blurry vision, visual loss, diplopia. Cardiac: no chest pain, no edema. Respiratory: no shortness of breath, fever, or cough. GI: No abdominal pain, diarrhea. No reported weight loss or nausea/vomiting. : No urinary frequency, urgency or discomfort. No incontinence. Neurologic: Dysphagia to fluids and solids since 2003. Intermittent weakness. Musculoskeletal: Back pain. Endocrine: No problems tolerating cold or warm temperatures. No polyuria, polydipsia, or polyphagia. Psychiatric: No anxiety/depression. Integumentary:No skin rash. Hematologic/Lymphatic:N o bruising, bleeding, swelling. Allergic/Immunologic: No allergies or immunodeficiency. All other systems reviewed are negative. PAST MEDICAL HISTORY Diagnosis Date - Allergic rhinitis, cause unspecified - Deviated nasal septum - Dysphagia, unspecified(27.20) Current Outpatient Medications on File Prior to Visit Medication Sig - Omeprazole 40 mg capsule once daily. - loratadine 10 mg cap loratadine - budesonide(RHINOCORT AQUA 32 MCG/ACTUATION NASAL SPRAY) one to two sprays to each nostril once daily (Patient taking differently: Use in the nose as needed. ) - montelukast sodium(SINGULAIR 10 MG TAB) take one tablet at bedtime (Patient not taking: ) No current facility-administered medications on file prior to visit. ALLERGIES Allergen Reactions - Amoxicillin - Environemtal [Other] Dust mites grasses (December and January) weeds (March, April and May) ragweed (March, April and May) - Levaquin [Levofloxa* - Penicillins SOCIAL HISTORY: Patient is . He quit smoking in 2001. Robert reports his alcohol use as three beers a wee;. Before that he would drink 3 beers a day x 1 year, and before this he would drink only on the weekends. Family History Problem Relation Age of Onset - Heart Mother - Heart Father - Cancer Father - Allergies Mother - Allergies Father - Allergies Brother His brother has hx of UC. General exam: No acute distress BP 132/83 Pulse 73 Resp 18 Ht 5' 11 (1.80m) Wt 205 lb (93.0kg) BMI 28.60 kg/(m2). HEENT: AT/NC, PERRL, EOMI. No nasal discharge. EAC normal. S/p teeth extraction. Tonsils appear symmetric and not hypertrophic. Neck: supple, full range of motion. No lymphadenopathy. Heart: S1 S2 + Lungs: CTA. Abdomen: Bowel sounds present and normoactive. NT/ND. Endocrine: No thyromegaly. Lymphatic: No lymphadenopathy. Extremities: Normal ROM. No joint swelling, or redness. Normal peripheral pulses. Skin: No skin rash. Neurological exam: Mental status: Awake, alert and oriented x3; speech fluent with normal repetition, comprehension and naming. Cranial Nerves: PERRL, extraocular movements intact, light touch and pinprick are intact in V1-V3, face symmetric, tongue midline, sternocleidomastoid and trapezius 5/5 strength and normal bulk. Motor: Tone is normal in upper and lower extremities. Nl bulk. UE: bilateral deltoid 5/5, elbow flexion/extension 5/5, wrist flexion/extension 5/5, finger extensors 5/5, finger flexors 5/5, thumb abduction 5/5, dorsal intrinsics 5/5, palmar intrinsics 5/5. LE: bilateral hip flexion/extension 5/5, knee flexion/extension 5/5, ankle plantar/dorsi- flexion 5/5. Deep Tendon Reflexes: Bilateral brachioradialis 2+, biceps 2+, triceps 2+. Bilateral patella 2+, ankle 2+. Toes are downgoing bilaterally.Dominguez's neg. Sensory: Light touch and pinprick are preserved bilaterally. Vibration and joint position sense are preserved bilaterally. Coordination: Normal qwpuce-etgn-kbmwva. Gait: Normal. DATA: Diagnostic tests reviewed for today's visit, films/specimens were personally reviewed by me: Most recent labs and imaging results. LABORATORIES: N/A Reportedly recent blood work was NL. IMAGING STUDIES: N/A IMPRESSION: This is a 39 year old y.o. right handed male presents today for evaluation of dysphagia that was noted a day after omari in 2003. He reports no other accompanying symptoms such as diplopia, ptosis, dysarthria. No changes in facial sensation. No hearing loss or vertigo. Pt saw ENT and GI. He had an MRI of the brain in 2005 that was reportedly neg. His clinical exam reveals no abnormalities. - Dysphagia etiology is unclear at this time since he has no other symptoms or neurologic findings suggestive of a primary neuromuscular disorder such as NMJ d/o (MG), or a myopathic process. A CN/CHEMICAL PREPARER d/o is not apparent on clinical examination. PLAN: MG ab, CK. CT neck soft tissue. A RNS/EMG study would be low yield based on clinical findings. Barium swallow test ordered by ENT. The patient will mail OSH MRI brain CD/report to us klio. All questions and concerns were addressed during this visit. I spent 60 minutes in the visit, with more than 50% of the total jacj-hl-soju time of the visit in counseling / coordination of care. Paolo Cruz MD Staff, Neurology and Neuromuscular Medicine Normal [facility] Vital Signs Date Time Vital Sign Value Performing Clinician Cl vivas 11-19-2022 03:09-0400 Heart rate 75 /min [facility] 11-19-2022 03:09-0400 Respiratory rate 16 /min [facility] 11-19-2022 03:09-0400 SaO2% (BldA) [Mass fraction] 98 % [facility] 11-18-2022 22:54-0400 Body height 182.[address] [facility] 11-18-2022 22:54-0400 Body mass index (BMI) [Ratio] 29.9 kg/m2 [facility] 11-18-2022 22:54-0400 Body temperature 98 [degF] [facility] 11-18-2022 22:54-0400 Body weight 100.[address] [facility] 11-18-2022 22:54-0400 Diastolic blood pressure 109 mm[Hg] [facility] 11-18-2022 22:54-0400 Systolic blood pressure 173 mm[Hg] [facility] Encounters Encounter Date Encounter Type Care Provider Facility Start: 01-06-2025 Encounter for genera l adult medical examination with abnormal findings Maggie Alexander [facility] Start: 01-02-2025 End: 01-02-[address] Radha Ken DO Work Phone: [facility] Work Phone: Start: 01-02-2025 End: 01-02-2025 Patient encounter procedure Maggie Alexander [facility] Work Phone: Start: 01-02-2025 End: 01-02-2025 ambulatory Radha Malys Facility:[facility] Start: 12-17-2024 ambulatory Radha Malys Facility:[facility] Start: 09-05-2024 End: 09-05-2024 ambulatory Radha Malys Facility:[facility] Start: 08-21-2024 End: 08-21-2024 ambulatory Radha Malys Facility:[facility] Start: 07-02-2024 End: 07-02-2024 ambulatory Radha Malys Facility:[facility] Start: 03-12-2024 ambulatory Radha Malys [facility] Start: 03-11-2024 ambulatory [facility] Carmichael Facility:[facility] Start: 03-11-2024 End: 03-11-2024 ambulatory Radha Malys Facility:[facility] Start: 02-26-2024 ambulatory [facility] Start: 02-26-2024 End: 02-26-2024 ambulatory [facility] Facility:[facility] Start: 02-20-2024 End: 02-20-2024 ambulatory Radha Ken Facility:[facility] Start: 01-14-2024 End: 01-14-2024 [facility] Start: 11-24-2023 End: 11-24-2023 ambulatory [facility] Work Phone: Start: 11-24-2023 End: 11-24-2023 Patient encounter procedure [facility] Work Phone: Start: 11-18-2022 End: 11-19-2022 Emergency department patient visit [facility] Start: 09-15-2022 End: 09-15-2022 ambulatory [facility] Work Phone: Start: 09-15-2022 End: 09-15-2022 Patient encounter procedure [facility], Lasha Rosette CYNTHIA Start: 04-08-2022 End: 04-08-2022 ambulatory [facility] Work Phone: Start: 04-08-2022 End: 04-08-2022 Patient encounter procedure [facility] Procedures Date Procedure Procedure Detail Performing Clinician Start: 11-18-2022 Diagnostic radiograp hy of finger Plan of Treatment Date Care Activity Detail Author Patient referral [facility] Work Phone: Immunizations Immunization Date Immunization Notes Care Provider Fa estrellaty 11-19-2022 tetanus toxoid, redu jasen diphtheria toxoid, and acellular pertussis vaccine, adsorbed [facility] Payers Date Payer Category Payer Self-pay [id number] 2024 Unknown [id number] Unknown [facility] [id number] Unknown [id number] Unknown [id number] Unknown [id number] Unknown [id number] Unknown [id number] Unknown [id number] Unknown [id number] Unknown [id number] Unknown [id number] Unknown [id number] Unknown [id number] Unknown [id number] Social History Date Type Detail Facility Start: 08-10-2021 End: 11-19-2022 Tobacco smoking status NHIS Unknown if ever smoked [facility] Start: 12-11-2018 Heavy [facility] Start: 12-11-2018 None [facility] Start: 12-11-2018 Spouse/ Signif icant Other [facility] Start: 12-12-2018 Non-smoker [facility] Start: 1980 Sex Assigned At Male [facility] Start: 07-02-2024 Tobacco smoking status NHIS Ex-smoker (finding) [facility] Discharge summary Note Date & Type Note Facility Discharge summary Note Date/Time November 19, 2022 1:41am [facility] Medical Records Department [address] [place] [address] Emergency Department Summary 11/19/22 MR#: [id number] Acct: [id number] Name: ROBERT GARNICA Rep #:[id number] : 1980 42 From: Janet Krishnamurthy PCP: Dr. Radha Ken DO Status:REG ER Location: ED HPI History of Present Illness Chief Complaint: Foreign Body Informant: patient Narrative Narrative: Patient is a 42-year-old male juwgr-oblg-drirlugv. Unknown when last tetanus was. Presenting for injury to his left pinky finger. Patient was cleaning a catfish that he had caught and a jalen became lodged in his pinky finger. He haspain. Patient was worried it could be in his bone. He came in for further evaluation. No other complaints or injuries reported. [facility] Medical History GERD (gastroesophageal reflux disease) Hypertension Home Medications epinephrine 0.3 mg/0.3 mL injection, auto-injector (EpiPen 2-Jovan) 0.3 mg (0.3 mL) IM Q10M PRN anaphylaxis #2 ea 02/08/21 [Rx Last Taken Unknown] omeprazole 40 mg capsule,delayed release 40 mg PO DAILY 07/20/21 [History Last Taken Unknown] doxycycline hyclate 100 mg capsule 100 mg PO BID #14 caps 11/19/22 [Rx Last Taken Unknown] Allergy/AdvReac Type Severity Reaction Status Date / Time aspirin Allergy Rash Verified 11/18/22 22:56 bee venom protein (honey bee) Allergy Anaphylaxis Verified 11/18/22 22:56 levofloxacin [From Levaquin] Allergy Hives Verified 11/18/22 22:56 peanut Allergy Hives Verified 11/18/22 22:56 Penicillins Allergy Anaphylaxis Verified 11/18/22 22:56 shellfish derived Allergy Hives Verified 11/18/22 22:56 Surgical History History of appendectomy Social History Smoking Status: Never smoker ROS ROS ED Constitutional Constitutional ED: Denies chills or fever(s) Gastrointestinal Gastrointestinal: Denies nausea or vomiting Musculoskeletal Musculoskeletal: Reports other Details: left hand pain Integumentary Reports other Details: Foreign body in the left pinky finger Neurologic Neurologic: Denies paresthesias or weakness EXAM Physical Exam Const Vital Signs: 11/18/22 22:54 Temperature 98 F Temperature Source Temporal Pulse Rate 85 Respiratory Rate 16 Blood Pressure 173/109 H Blood Pressure Mean 130 Pulse Ox 100 Oxygen Delivery Method Room Air Positive well nourished and well developed General Appearance ED: well developed and NAD HEENT Reports moist mucous membranes Negative for trauma Eyes PERRL and EOMs intact bilaterally Chest Wall inspection of chest normal Resp normal respiratory effort Extremity Extremity Narrative: Localized tenderness to the left pinky finger at the middle phalanges at where the foreign body is. No other deformity of the extremity appreciated. Range ofmotion is preserved. General Extremety ED: Negative for edema General Extremity: Negative for edema Neuro oriented x3 and no sensory deficits noted Sensorium / Orientation: alert Motor Exam: Negative for general weakness Skin Skin Narrative: Puncture wound to the dorsal aspect of the left fifth finger over the middle phalanges with jalen sticking out of the finger consistent with a catfish jalen. No active bleeding at this time. No other wounds or injuries appreciated. MDM MDM MDM Narrative Medical decision making narrative: Patient valuated foreign body to his left pinky finger. Tetanus is updated. X-ray obtained interpreted myself as well as radiology shows a catfish jalen in thevolar soft tissue with no acute fracture or bony abnormalities. Digital nerve block using 1% lidocaine with epinephrine performed and foreign bodies removed. No acute complications. It is then soaked in Hibiclens and sterile saline. Patient empirically is placed on doxycycline. Is counseled on return precautions as well as signs of infection. Patient counseled to avoid direct sun exposure while on the doxycycline to prevent sunburn. Counseled alternate ibuprofen and Tylenol for pain. Discharged home in stable condition. Radiography Diagnostic Testing: Clinical Impression(s) from Imaging Studies Finger X-Ray 11/18/22 23:00 IMPRESSION: known catfish jalen in the volar soft tissues. No acute fracture or dislocation.. Electronically Signed: Buck Mccall MD at 23:26 EDT , Discharge Plan Triage Chief Complaint: Foreign Body ED Provider: Janet Ken Dx/Rx/DC Orders Clinical Impression: Foreign body of finger of left hand Prescriptions: New doxycycline hyclate 100 mg capsule 100 mg PO BID Qty: 14 0RF No Action epinephrine [EpiPen 2-Jovan] 0.3 mg/0.3 mL auto-injector 0.3 mg IM Q10M PRN (Reason: anaphylaxis) Qty: 2 0RF Rx Instructions: for 2 doses omeprazole 40 mg capsule,delayed release(DR/EC) 40 mg PO DAILY Primary Care Provider: Radha Ken Referrals: Radha Ken DO [Primary Care Provider] - Activity Restrictions/Additional Instructions: Alternate ibuprofen and Tylenol for pain. Return if you have worsening pain or signs of infection. Avoid sun exposure and wear sunscreen while taking the antibiotics as they can increase sensitivity to sunlight. Disposition Disposition: Home, Self Care What to do if you have Problems For any increased pain, shortness of breath, bleeding, nausea or vomiting, chestpain, or any unexpected problems, contact your Primary Care Provider. Call [facility] ([phone]) or report to the closest Emergency Room. Call 911 if necessary. 11/19/22301 <Electronically signed by Janet Ken DO> Cosigner Signature (if applicable): CC: Dr. Radha Ken DO ~ Signed [facility] Work Phone: Evaluation note Note Date & Type Note Facility Evaluation note No assessment information availa ble [facility] Work Phone: Hospital Discharge instructions Note Date & Type Note Facility Hospital Discharge instructions Additional Instructions Alternate ibuprofen and Tylenol for pain. Return if you have worsening pain or signs of infection. Avoid sun exposure and wear sunscreen while taking the antibiotics as they can increase sensitivity to sunlight. [facility] Work Phone: Reason for referral (narrative) Note Date & Type Note Facility Reason for referral (narrative) No reason for referral information available [facility] Work Phone: Summary Purpose Family History No Family History Records Found Relationship Condition Age at Onset Recorded Date/T chelsie Unknown Family History?- Unknown December 11 11:21pm Family History?- Unknown December 11 11:21pm Relationship Condition Age at Onset Recorded Date/T chelsie Unknown Family History?- Unknown December 11 10:21pm Family History?- Unknown December 11 10:21pm Relationship Condition Age at Onset Recorded Date/T chelsie father Myocardial infarction Unknown History of endarterectomy Unknown Status post three ve ssel coronary artery bypass Unknown Carotid artery disease Unknown brother Myocardial infarction 47 Atrial fibrillation Unknown mother Atrial fibrillation Unknown Coronary artery disease 55 grandfather Myocardial infarction Unknown Advance Directives No Advanced Directives Records Found Advance Directive Response Recorded Date/ Time Living Will No August 10 8:34am Power of Provider Relations Rep No August 10 8:34am Advance Directive Response Recorded Date/ Time Living Will No August 10 7:34am Power of Provider Relations Rep No August 10 7:34am Advance Directive Response Recorded Date/ Time Living Will No November 19, 2022 12:38am Power of Provider Relations Rep No November 19 12:38am Chief Complaint and Reason for Visit Chief Complaint FOREIGN BODY Chief Complaint Admit Date [address]e orders & paper December 6:39am Additional Source Comments (unrecognized sect ion and content) No Status Records FoundNo Status Records Found INFORMATION SOURCE (unrecogn ized section and content) DATE CREATED AUTHOR 07/24/2019 [facility] DATE CREATED AUTHOR AUTHOR'S ORGANIZ ATION [facility] Goals (unrecognized section and content) Goals may be documented in a n alternate sectionGoals may be documented in an alternate sectionGoals may be documented in an alternate sectionGoals may be documented in an alternate sectionGoals may be documented in an alternate section Care Teams (unrecognized sec tion and content) Team Status: Active Member Role Status Dates Dr. Buck Cardenas MD Family Provider Active Dr. Radha Ken DO Primary Care Provider Active Team Status: Inactive Member Role Status Dates Dr. Radha Ken DO Primary Care Provider, Attending Baylee patterson Active Team Status: Inactive Member Role Status Dates Dr. Radha Ken DO Primary Care Provider Active Dr. Janet Ken DO Emergency Provider Active Team Status: Inactive Member Role Status Dates Dr. Radha Ken DO Primary Care Provide r, Attending Provider, Referring Provider Active Team Status: Active Member Role Status Dates Dr. Radha Ken DO Primary Care Provider Active Team Status: Inactive Member Role Status Dates Dr. Radha Ken DO Primary Care Provider Active Start: January 02, 2025 End: January 02, 2025 LILIBETH Snow Attending Provider Active St art: January 02, 2025 End: January 02, 2025 LILIBETH Snow Referring Provider Active St art: January 02, 2025 End: January 02, 2025 Johnathon Villegas NP, [employer] Other Provider Active Start : January 02, 2025 End: January 02, 2025 FOR RECORDS PERTAINING TO PATIENTS WHO ARE OR HAVE BEEN ENROLLED IN A CHEMICAL DEPENDENCY/SUBSTANCEABUSE PROGRAM, SOME INFORMATION MAY BE OMITTED. This clinical summary was aggregated from multiple sources. Caution should be exercised in using it in the provision of clinical care. This summary normalizes information from multiple sources, and as a consequence, information in this document may materially change the coding, format and clinical context of patient data. In addition, data may be omitted in some cases. CLINICAL DECISIONS SHOULD BE BASED ON THE PRIMARY CLINICAL RECORDS. [facility] [employer] [facility]. provides no warranty or guarantee of the accuracy or completeness of information in this document.
[2025-04-13 08:20] LABS: AST(SGOT) 22 U/L (<=37); Alanine Aminotransfer ALT/SGPT 23 U/L (<=46); Albumin, Serum 4.5 g/dL (3.5-5.0); Alkaline Phosphatase 57 U/L (40-129); Anion Gap 11 (5-15); BUN 11 mg/dL (4-19); BUN/Creat Ratio 11.1 RATIO (10-20); Calcium,Total 9.3 mg/dL (7.6-11.0); Carbon Dioxide 25.2 mmol/L (21.0-32.0); Chloride 102 mmol/L (98-108); Estimated Creatinine Clearance 107.60 ml/min (50-250); Globulin 2.6 g/dL (2.2-4.2); Glucose 104 mg/dL (70-99); Potassium 4.0 mmol/L (3.3-5.1)
[2025-04-13 08:45] VITALS: BP 131/95; BP 139/91; BP 140/84; PULSE 63; PULSE 68; PULSE 72
[2025-04-13 09:03] LABS: Mucous, Urine 0 SEEN /hpf (<or=2+); Red Blood Cells-Urine 0 SEEN /hpf (0-5); Squamous Epithelial Cells - UA 0 SEEN /hpf (0-5)
[2025-04-13 09:08] LABS: Color, Urine Yellow (Yellow); Glucose, Dipstick Normal (Normal); Ketone-Dipstick Negative (Negative); Leukocyte Esterase-Dipstick Negative /ul (Negative); Nitrite-Dipstick Negative (Negative); Occult Blood-Urine Negative /ul (Negative); Protein-Dipstick 15 mg/dl (Negative); Specific Gravity, Urine 1.010 (1.002-1.030); Urine Bilirubin Dipstick Negative (Negative)
[2025-04-13 09:16] VITALS: BP 141/81; PULSE 76; RESP 18; O2SAT 99
[2025-04-13 10:50] VITALS: BP 118/78; PULSE 64; RESP 18; TEMP 36.6; O2SAT 99
== END 2025-04-13 10:51 | disposition home or self-care (01) ==
PROVIDERS: Emergency Provider Emergency Medicine; PCP Family Medicine; Visit Provider Emergency Medicine
DX: R42 Dizziness and giddiness (principal); R11.0 Nausea; I10 Essential (primary) hypertension; K21.9 Gastro-esophageal reflux disease without esophagitis; Z79.899 Other long term (current) drug therapy; Z90.49 Acquired absence of other specified parts of digestive tract; Z87.891 Personal history of nicotine dependence
CPT/HCPCS: 70450; 80053; 81001; 85025; 93005; 96361; 96374; 99285; A4216; J2405

== ENCOUNTER → 2025-04-18 | Outpatient (CLI) | payer BC, SELFPAY ==
--- NOTE | 2025-04-18 09:22 | RAD_ITS ---
PROCEDURE: CERV SPINE 4 OR 5 VIEWS 04/18/2025 REASON FOR EXAM: PAIN TECHNIQUE: Procedure Code: RADSPC Modality: DX Procedure: CERV SPINE 4 OR 5 VIEWS COMPARISON: None FINDINGS: Vertebrae: Vertebral heights are well-maintained. disc spaces: Disc spaces are well-maintained. Alignment: Straightening of the normal cervical lordosis. soft tissues: No prevertebral soft tissue swelling. Other: RAD/Cerv Spine 4 or 5 Views IMPRESSION: NEGATIVE CERVICAL SPINE. Disclaimer: Reading Location: [place] [id number]
--- NOTE | 2025-04-18 09:22 | RAD_ITS ---
PROCEDURE: THORACIC SPINE 3 VIEWS 04/18/2025 REASON FOR EXAM: PAIN TECHNIQUE: Procedure Code: RADSPT Modality: DX Procedure: THORACIC SPINE 3 VIEWS COMPARISON: None FINDINGS: Vertebrae: Demineralization of the thoracic vertebrae. Discs: Multilevel disc space narrowing. Alignment: Normal kyphosis. Other: RAD/Thoracic Spine 3 Views IMPRESSION: Demineralization of the thoracic vertebrae. Multilevel disc space narrowing. Reading Location: [facility]
--- NOTE | 2025-04-18 09:22 | RAD_ITS ---
PROCEDURE: L/S SPINE MIN 4 VIEWS 04/18/2025 REASON FOR EXAM: PAIN TECHNIQUE: Procedure Code: RADSPLS Modality: DX Procedure: L/S SPINE MIN 4 VIEWS COMPARISON: None FINDINGS: Curvature: No evidence of scoliosis. Other findings: Marked degree of disc space narrowing and spondylosis at the L1- L2 level. Minimal retrolisthesis of L3 on L4. Grade 1 anterior listhesis of L5 on S1. Questionable spondylolysis of the pars interarticularis of the L5 vertebrae. Other: RAD/L/S Spine Min 4 Views IMPRESSION: Grade 1 anterior listhesis of L5 on S1. Questionable spondylolysis of the pars interarticularis of the L5 vertebrae. Disc space narrowing at the L1-L2 level with anterior spondylosis. Mild retrolisthesis of L2 on L3 and L3 on L4. Reading Location: [place] [id number]
--- OUTSIDE RECORDS SUMMARY | 2025-04-18 09:23 | XMS RPT_ITS | CCD ---
Author Organization [facility] Care Team Providers Care Corporate Planner Name Role Phone Dr. Radha Ken DO Primary Care Provider [phone] Benjamin CHOCOLATE REFINING ROLLER-C, Maggie Attending Provider Benjamin CHOCOLATE REFINING ROLLER-C, Maggie Referring Provider [phone] Roof CHOCOLATE REFINING ROLLER-C, Johnathon Guerrier Other Provider Fernando Menendez MD Emergency Provider Malys, Radha Primary Care Unavailable Malys, Radha Referring Unavailable Bakari CHOCOLATE REFINING ROLLER, Johnathon Guerrier Attending Unavailable Malys, Radha Primary Care Unavailable Pillo Griffiths Attending Unavailable Malys, Radha Primary Care Unavailable Pillo Griffiths Attending Unavailable Malys, Radha Primary Care Unavailable Benjamin, Maggie Attending Unavailable Benjamin, Maggie Referring Unavailable Bakari CHOCOLATE REFINING ROLLERJohnathon Consulting Unavailable Malys, Radha Primary Care Unavailable Fernando Menendez Attending Unavailable Malys, Radha Primary Care Unavailable Benjamin, Maggie Attending Unavailable Benjamin, Maggie Referring Unavailable Allergies Allergy Classification Reported Allergen(s) Allergy Type Date of Onset Reaction(s) Facility (6 sources) Aspirin Drug Allergy 2 Rash [facility] (6 sources) levoFLOXacin Drug Allergy 2 [facility] (6 sources) peanut allergenic extract Drug Allergy 2 [facility] (6 sources) Penicillins Allergy to substance 2 Anaphylaxis [facility] (7 sources) Shellfish; Translations: [shellfish derived] Allergy to substance 2 [facility] (6 sources) bee venom protein (honey bee) Allergy to substance 2 Anaphylaxis [facility] (1 source) Aspirin Drug Allergy 5 [facility] (1 source) levoFLOXacin Drug Allergy 5 [facility] (1 source) peanut allergenic extract Drug Allergy 5 [facility] (1 source) Penicillins Drug allergy (disorder) 5 [facility] (1 source) bee venom protein (honey bee) Drug allergy (disorder) 5 [facility] Medications Current Medications Medication Drug Class(es) Dates Sig (Normalized) Sig (Original) [id number] 0.3 ml EPINEPHrine 1 mg/ml auto-injector (6 sources) alpha-Adrenergic Agonist, beta-Adrenergic Agonist, Catecholamine Start: 02-08-2021 Epinephrine (Epipen 2-Jovan) 0.3 mg/0.3 mL auto-injector Active 0.3 mg IM Q10M as needed for anaphylaxis 2 0 February 08, 2021 12:00am for 2 doses fluticasone propionate 0.05 mg/actuat metered dose nasal spray (4 sources) Corticosteroid Start: 01-14-2024 Fluticasone Propionate 50 [...] 12:00am losartan potassium 50 mg oral tablet (4 sources) Angiotensin 2 Receptor Ezequiel Start: 07-02-2024 Losartan 50 mg tablet Active 25 mg PO DAILY July 02, 2024 9:40am Unable to tolerate the 50 mg dose. Start: 02-20-2024 End: 07-02-2024 take 1 tablet by mouth once daily Losartan 50 mg tablet Discontinued 50 mg PO DAILY 90 February 20, 2024 12:00am July 02, 2024 9:41am magnesium oxide 400 mg oral tablet (4 sources) Start: 03-24-2024 End: 07-02-2024 take 1 tablet by mouth once daily as needed Magnesium Oxide 400 mg magnesium tablet Active 400 mg PO DAILY as needed July 02, 2024 9:36am meclizine hydrochloride 25 mg oral tablet (1 source) Antiemetic Start: 04-13-2025 take 1 tablet by mouth four times daily as needed for dizziness Meclizine 25 mg tablet Active 25 mg PO 4 TIMES DAILY NEEDED as needed for Dizziness 20 0 April 13, 2025 12:00am omeprazole 40 mg delayed release oral capsule (8 sources) Proton Pump Inhibitor Start: 07-20-2021 End: 02-20-2024 take 1 capsule by mouth once daily as needed Omeprazole 40 mg capsule,delayed release(DR/EC) Active 40 mg PO DAILY as needed February 20, 2024 9:48am Completed/Discontinued Medications Medication Drug Class(es) Dates Sig (Normalized) Sig (Original) carvedilol 3.125 mg oral tablet (4 sources) alpha-Adrenergic Ezequiel, beta-Adrenergic Ezequiel Start: 01-25-2024 End: 07-02-2024 take 1 tablet by mouth once daily at mealtime Carvedilol 3.125 mg tablet Discontinued 3.125 mg PO DAILY as needed February 20, 2024 9:47am July 02, 2024 9:36am must administer with a meal/food diphenhydrAMINE hydrochloride 2.5 mg/ml oral solution (6 sources) Histamine-1 Receptor Antagonist Start: 12-11-2018 End: [...] 11:15am doxycycline hyclate 100 mg oral capsule (4 sources) Tetracycline-class Drug Start: 11-19-2022 End: 01-14-2024 take 1 capsule by mouth twice daily Doxycycline Hyclate 100 mg capsule Discontinued 100 mg PO TWICE A DAY 14 0 November 19, 2022 12:00am January 14, 2024 10:02am Problems Active Problems Problem Classification Problem Date Documented Da te Episodic/Chronic Alcohol-related disorders (6 sources) Alcohol abuse; Translations: [Alcohol abuse, uncomplicated] 12-12-2018 Chronic Anxiety disorders (6 sources) Anxiety; Translations: [Anxiety disorder, unspecified] 08-18-2021 Chronic Cardiac dysrhythmias (2 sources) Palpitations; Translations: [Palpitations] 07-02-2024 Episodic Conditions associated with dizziness or vertigo (2 sources) Dizziness; Translations: [Dizziness and giddiness] 04-13-2025 Episodic Disorders of lipid metabolism (3 sources) Hyperlipidemia; Translations: [Hyperlipidemia, unspecified] Onset: 07-02-2024 Chronic Esophageal disorders (6 sources) Gastroesophageal reflux disease; Translations: [Gastro-esophageal reflux disease without esophagitis] 12-12-2018 Chronic Essential hypertension (6 sources) Hypertensive disorder; Translations: [Essential (primary) hypertension] 08-18-2021 Chronic Gout and other crystal arthropathies (2 sources) Gout; Translations: [Gout, unspecified] 01-25-2024 Chronic Miscellaneous mental health disorders (6 sources) Psychogenic hyperventilation; 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 Nausea and vomiting (1 source) Nausea; Translations: [Nausea] 04-13-2025 Episodic Nonspecific chest pain (8 sources) Chest pain; Translations: [Chest pain, unspecified] 12-12-2018 Episodic Other circulatory disease (6 sources) H/O: hypertension; Translations: [Personal history of other diseases of the circulatory system] 12-11-2018 Episodic Other endocrine disorders (1 source) Testicular hypofunction; Translations: [Testicular hypofunction] Onset: Chronic Other gastrointestinal disorders (6 sources) Dysphagia; Translations: [Dysphagia, unspecified] 12-12-2018 Episodic Other nutritional; endocrine; and metabolic disorders (6 sources) Body mass index 30+ - obesity; Translations: [Body mass index (BMI) 30.0-30.9, adult] 07-20-2021 Chronic Residual codes; unclassified (2 sources) Family history of cardiac disorder; Translations: [Family history of ischemic heart disease and other diseases of the circulatory system] 07-02-2024 Episodic Superficial injury; contusion (4 sources) Foreign body - finger; Translations: [Superficial foreign body of unspecified finger, initial encounter] 11-19-2022 Episodic Syncope (6 sources) Near syncope; Translations: [Syncope and collapse] 12-05-2018 Episodic Viral infection (4 sources) Disease caused by 2019-nCoV; Translations: [COVID-19] 07-20-2021 Episodic Past or Other Problems Problem Classification Problem Date Documented Da te Episodic/Chronic Other circulatory disease (1 source) Personal history [...] Test Name Value Interpretation Reference Range Facility 12 Lead EKGon 04-13-2025 12 Lead EKG [facility] Cardiovascular Services [address] [place] [address] 12 Lead EKG 04/13/25 0741 MR#: [id number] Acct: [id number] Name: ROBERT GARNICA Rep #: [id number] : 1980 45 From: Manuel Hill MD Attending Dr: Status: DEP ER Ordering Dr: Fernando Menendez MD Date: 04/13/25 Location: ED Sex: M C Admitted: Test Reason : DIZZINESS Blood Pressure : */* mmHG Vent. Rate : 66 BPM Atrial Rate : 66 BPM P-R Int : 164 ms QRS Dur : 94 ms QT Int : 384 ms P-R-T Axes : 59 65 49 degrees QTcB Int : 402 ms Normal sinus rhythm Normal ECG Confirmed by Manuel Hill ([id number]), subeditor NORMA BANKS ([id number]) on 04/14/2025 10:19:03 AM Referred By: Confirmed By: Manuel Hill 04/14/25 1019 Date Manuel Hill MD CC: Dr. Fernando Menendez MD; Dr. Radha Ken, DO Signed Normal [facility] Absolute lymphocyte countOrd ered By: Fernando Menendez on 04-13-2025 Lymphocytes Auto (Unsp spec) [#/Vol] 1.82 10*3/uL 0.83-4.51 [facility] Absolute neutrophil countOrd ered By: Fernando Menendez on 04-13-2025 Neutrophils (Bld) [#/Vol] 4.3 10*3/uL 2.0-7.7 [facility] Anion gap in Serum or Plasma Ordered By: Fernando Menendez on 04-13-2025 Anion gap [Moles/Vol] 11 mmol/L 5-15 [facility] Automated lymphocyte count a s percentage of total leukocytesOrdered By: Fernando Menendez on 04-13-2025 Lymphocytes/100 WBC Auto (Unsp spec) 25.1 % 19-41 [facility] BUN/creatinine ratioOrdered By: Fernando Menendez on 04-13-2025 Urea nitrogen/Creatinine [Mass ratio] 11.1 mg/mg 10-20 [facility] Basophil percentageOrdered B y: Fernando Menendez on 04-13-2025 Basophils/100 WBC (Bld) 1.1 % High 0-1 [facility] Bilirubin Test strip Ql (U)O rdered By: Fernando Menendez on 04-13-2025 Bilirubin Ql (U) Negative Negative [facility] Bilirubin, totalOrdered By: Fernando Menendez on 04-13-2025 Bilirubin [Mass/Vol] 0.44 mg/dL 0.00-1.30 [facility] Brain/Head without Contrasto n 04-13-2025 Brain/Head without Contrast [facility] Imaging Services [address] [place], [place] [address] Brain/Head without Contrast MR#: [id number] Acct: [id number] Name: ROBERT GARNICA Rep #: [id number] : 1980 M 45 From: Alexander telles MD PCP: Dr. Radha Ken DO Status: REG ER Study: Brain/Head without Contrast Date of Exam: 03/30 Exam# [id number] Ordering Dr: Fernando Menendez MD PROCEDURE: BRAIN/HEAD WITHOUT CONTRAST 04/13/2025 REASON FOR EXAM: DIZZINESS Headaches. TECHNIQUE: Procedure Code: CTBR Modality: CT Procedure: BRAIN/HEAD WITHOUT CONTRAST Coronal and Sagittal reconstruction series were provided. One or more dose reduction techniques were used (e.g., Automated exposure control, adjustment of the mA and/or kV according to patient size, use of iterative reconstruction technique. RADIATION DOSE SUMMARY: CTDlvol: 44.99 mGy DLP: A 12.98 mGycm COMPARISON: Prior study dated December 11, 2018. FINDINGS: Brain: Normal CSF Spaces: Normal Sinuses/Mastoids: Clear at visualized levels Bones: Unremarkable CT/Brain/Head without Contrast IMPRESSION: NORMAL NONCONTRAST HEAD CT. Reading Location: [facility] CC: Dr. Fernando Menendez MD; Dr. Radha Ken DO Director Medical Surgical: Signed Normal [facility] CBC W/Diff, Automatedon 09 Absolute Lymph 1.82 X10 3/uL Normal 0.83-4.51 [facility] Comment on above: Performed By: #### L 500.4050, L100.0100 ####[facility] [address] [place], [address] Absolute Neut 4.3 X10 3/uL Normal 2.0-7.7 [facility] Comment on above: Performed By: #### L 500.4050, L100.0100 ####[facility] [address] [place], [address] Basophils/100 WBC (Bld) 1.1 % High 0-1 [facility] Comment on above: Performed By: #### L 500.4050, L100.0100 ####[facility] [address] [place], [address] Eosinophils/100 WBC (Bld) 2.8 % Normal 0-5 [facility] Comment on above: Performed By: #### L 500.4050, L100.0100 ####[facility] [address] [place], [address] Erythrocyte distribution width (RBC) [Ratio] 12.6 % Normal 11.6-14.6 [facility] Comment on above: Performed By: #### L 500.4050, L100.0100 ####[facility] [address] [place], [address] Hematocrit (Bld) [Volume fraction] 47.0 % Normal 40-54 [facility] Comment on above: Performed By: #### L 500.4050, L100.0100 ####[facility] [address] [place], [address] Hemoglobin (Bld) [Mass/Vol] 16.0 g/dL Normal 13.0-16.5 [facility] Comment on above: Performed By: #### L 500.4050, L100.0100 ####[facility] [address] [place], [address] IG% 0.100 Normal 0.0-0.9 [facility] Comment on above: Result Comment: IG% - Immature Granulocytes (promyelocytes, myelocytes and metamyelocytes) > 1% indicates that a LEFT SHIFT is Present. Performed By: #### L 500.4050, L100.0100 ####[facility] [address] [place], [address] Lymphocytes/100 WBC (Bld) 25.1 % Normal 19-41 [facility] Comment on above: Performed By: #### L 500.4050, L100.0100 ####[facility] [address] [place], [address] MCH (RBC) [Entitic mass] 29.5 pg Normal 27.0-32.0 [facility] Comment on above: Performed By: #### L 500.4050, L100.0100 ####[facility] [address] [place], [address] MCHC (RBC) [Mass/Vol] 34.0 g/dL Normal 32-36 [facility] Comment on above: Performed By: #### L 500.4050, L100.0100 ####[facility] [address] [place], [address] MCV (RBC) [Entitic vol] 86.7 fL Normal 80-94 [facility] Comment on above: Performed By: #### L 500.4050, L100.0100 ####[facility] [address] [place], [address] Monocytes/100 WBC (Bld) 12.4 % High 0-10 [facility] Comment on above: Performed By: #### L 500.4050, L100.0100 ####[facility] [address] [place], [address] Neutrophils/100 WBC (Bld) 58.5 % Normal 47-70 [facility] Comment on above: Performed By: #### L 500.4050, L100.0100 ####[facility] [address] [place], [address] Nucleated RBC (Bld) [#/Vol] 0 10*3/uL Normal 0-5 [facility] Comment on above: Performed By: #### L 500.4050, L100.0100 ####[facility] [address] [place], [address] Platelet mean volume (Bld) [Entitic vol] 10.6 fL Normal 6.2-12.0 [facility] Comment on above: Performed By: #### L 500.4050, L100.0100 ####[facility] [address] [place], [address] Platelets (Bld) [#/Vol] 221 10*3/uL Normal 150-450 [facility] Comment on above: Performed By: #### L 500.4050, L100.0100 ####[facility] [address] [place], [address] RBC (Bld) [#/Vol] 5.42 10*6/uL Normal 4.6-6.2 [facility] Comment on above: Performed By: #### L 500.4050, L100.0100 ####[facility] [address] [place], [address] RDW SD 39.8 fl Normal 35.1-43.9 [facility] Comment on above: Performed By: #### L 500.4050, L100.0100 ####[facility] [address] [place], [address] WBC (Bld) [#/Vol] 7.3 10*3/uL Normal 4.4-11.[address] [facility] Comment on above: Performed By: #### L 500.4050, L100.0100 ####[facility] [address] [place], [address] Carbon dioxide, total [Moles /volume] in Central venous bloodOrdered By: Fernando Menendez on 04-13-2025 CO2 [Moles/Vol] 25.2 mmol/L 21.0-32.0 [facility] Chloride assayOrdered By: Jalen Menendez on 04-13-2025 Chloride [Moles/Vol] 102 mmol/L 98-108 [facility] Comprehensive Metabolic Prof ilon 04-13-2025 Albumin [Mass/Vol] 4.5 g/dL Normal 3.5-5.[address] [facility] Comment on above: Performed By: #### L 500.4050, L100.0100 ####[facility] [address] [place], [address] Albumin/Globulin [Mass ratio] 1.7 {ratio} Normal 0.9-2.4 [facility] Comment on above: Performed By: #### L 500.4050, L100.0100 ####[facility] [address] [place], [address] ALK PHOS 57 U/L Normal 40-129 [facility] Comment on above: Performed By: #### L 500.4050, L100.0100 ####[facility] [address] [place], [address] ALT [Catalytic activity/Vol] 23 U/L Normal <=46 [facility] Comment on above: Performed By: #### L 500.4050, L100.0100 ####[facility] [address] [place], [address] AST [Catalytic activity/Vol] 22 U/L Normal <=37 [facility] Comment on above: Performed By: #### L 500.4050, L100.0100 ####[facility] [address] [place], [address] Bilirubin [Mass/Vol] 0.44 mg/dL Normal 0.00-1.30 [facility] Comment on above: Performed By: #### L 500.4050, L100.0100 ####[facility] [address] [place], [address] BUN/CRE 11.1 RATIO Normal 10-20 [facility] Comment on above: Performed By: #### L 500.4050, L100.0100 ####[facility] [address] [place], [address] Calcium [Mass/Vol] 9.3 mg/dL Normal 7.6-11.[address] [facility] Comment on above: Performed By: #### L 500.4050, L100.0100 ####[facility] [address] [place], [address] Chloride [Moles/Vol] 102 mmol/L Normal 98-108 [facility] Comment on above: Performed By: #### L 500.4050, L100.0100 ####[facility] [address] [place], [address] CO2 [Moles/Vol] 25.2 mmol/L Normal 21.0-32.0 [facility] Comment on above: Performed By: #### L 500.4050, L100.0100 ####[facility] [address] [place], [address] Creatinine [Mass/Vol] 1.03 mg/dL Normal 0.70-1.20 [facility] Comment on above: Performed By: #### L 500.4050, L100.0100 ####[facility] [address] [place], [address] ECRCL 107.60 ml/min Normal 50-250 [facility] Comment on above: Performed By: #### L 500.4050, L100.0100 ####[facility] [address] [place], [address] GAP 11 Normal 5-15 [facility] Comment on above: Performed By: #### L 500.4050, L100.0100 ####[facility] [address] [place], [address] GFR/1.73 sq M.predicted among non-blacks MDRD (S/P/Bld) [Vol rate/Area] 90 mL/min/{1.73_m2} Normal >60 [facility] Comment on above: Result Comment: mL/m in/1.73m2 CKD-EPI Creatinine Equation (2020) Performed By: #### L 500.4050, L100.0100 ####[facility] [address] [place], [address] Globulin (S) [Mass/Vol] 2.6 g/dL Normal 2.2-4.2 [facility] Comment on above: Performed By: #### L 500.4050, L100.0100 ####[facility] [address] [place], [address] Glucose [Mass/Vol] 104 mg/dL High 70-[address] [facility] Comment on above: Performed By: #### L 500.4050, L100.0100 ####[facility] [address] [place], [address] Potassium [Moles/Vol] 4.0 mmol/L Normal 3.3-5.1 [facility] Comment on above: Performed By: #### L 500.4050, L100.0100 ####[facility] [address] [place], [address] Sodium [Moles/Vol] 138 mmol/L Normal 133-[address] [facility] Comment on above: Performed By: #### L 500.4050, L100.0100 ####[facility] [address] [place], [address] T PROT 7.1 g/dL Normal 5.9-8.4 [facility] Comment on above: Performed By: #### L 500.4050, L100.0100 ####[facility] [address] [place], [address] Urea nitrogen [Mass/Vol] 11 mg/dL Normal 4-19 [facility] Comment on above: Performed By: #### L 500.4050, L100.0100 ####[facility] [address] [place], [address] Emergency Department Summary on 04-13-2025 Emergency Department Summary [facility] Medical Records Department [address] [place] [address] Emergency Department Summary 04/13/25 MR#: [id number] Acct: [id number] Name: ROBERT GARNICA Rep #: [id number] : 1980 45 From: Fernando Menendez MD PCP: Dr. Radha Ken, DO Status:REG ER Location: ED HPI History of Present Illness Chief Complaint: Dizziness Narrative Narrative: 45-year-old male who denies significant past medical history except for hypertension presents with his because of multiple somatic complaints but mainly nausea and diarrhea but no vomiting, as well as lightheadedness and dizziness. He states that he went to the fair with his yesterday, but she states he did not drink anything all day. He did not really eat anything as well. This morning when he woke up at around 530, 2 hours ago, he felt very lightheaded, nauseated, and dizzy with slight vertiginous type symptoms. He has right sided neck pain that is chronic that radiates to the right side with mild photophobia. States has had 4 episodes of nonbloody diarrhea as well. No recent fevers or chills, no cough. No abdominal pain. He states he feels off balance, and when he looks certain ways, he feels drunk however, he has not been drinking alcohol. Seems to be worse with standing. [facility] Medical History Gout ETOH abuse History of hypertension Chest pain Dysphagia Anxiety and depression GERD (gastroesophageal reflux disease) Hypertension Home Medications ???Medication ???Instructions ???Recorded ???Last Taken ???Type epinephrine 0.3 mg/0.3 mL 0.3 mg (0.3 mL) IM Q10M PRN Unknown Rx injection, auto-injector (EpiPen anaphylaxis #2 ea 2-Jovan) fluticasone propionate 50 spray intranasal 01/14/24 Unknown History mcg/actuation nasal spray,suspension omeprazole 40 mg capsule,delayed 40 mg PO DAILY PRN 02/20/24 Unknow n History release losartan 50 mg tablet 25 mg PO DAILY 07/02/24 Unknown Hi story magnesium oxide 400 mg PO DAILY PRN 07/02/24 Unkno wn History meclizine 25 mg tablet 25 mg PO 4X/DAY PRN PRN Dizziness 04/13/25 Unknown Rx #20 tabs Allergy/AdvReac Type Severity Reaction Status Date / Time aspirin Allergy Rash Verified 04/13/25 07:17 bee venom protein (honey bee) Allergy Anaphylaxis Verified 04/13/25 07:17 levofloxacin (From Levaquin) Allergy Hives Verified 04/13/25 07:17 peanut Allergy Hives Verified 04/13/25 07:17 Penicillins Allergy Anaphylaxis Verified 04/13/25 07:17 shellfish derived Allergy Hives Verified 04/13/25 07:17 Family History Father Myocardial infarction H/O endarterectomy S/P CABG x 3 Stent-45 Carotid artery disease Brother Myocardial infarction, Onset Age: 47 Afib Mother Afib CAD (coronary artery disease), Onset Age: 55 Grandfather Myocardial infarction Paternal- Late 40s Surgical History Hx of tooth extraction S/P ORIF (open reduction internal fixation) fracture Hx of knee surgery History of appendectomy Social History Smoking Status: Former smoker how long ago did patient quit smokin alcohol intake: current alcohol intake frequency: other Alcohol type: beer details: rarely substance use type: does not use caffeine: Yes Type: carbonated beverages Number of servings: 1, coffee Number of servings: 3 and tea Number of servings: 10 ROS ROS ED ROS Narrative Review of systems positive for lightheadedness and dizziness. Positive nausea but no vomiting. 4 episodes of nonbloody diarrhea. Right sided headache radiating from neck to scalp, and behind eye. Worse with standing. Feels off balance at times. EXAM Physical Exam Narrative Exam Narrative: Afebrile. Vital signs noted. Nontoxic-appearing. Cardiovascular examination feels a regular rate and rhythm. Lungs are clear to auscultation bilaterally. Abdomen is soft and nontender with positive bowel sounds, no guarding or rebound. Neurological examination is nonfocal, nonlateralizing. Awake, alert, oriented x 3. Interactive, asking during questions appropriately. DTRs, patellar equal and symmetric. NIH stroke scale is 0. Cerebellar functioning normal as tested. Const Vital Signs: 04/13/25 07:16 04/13/25 08:45 04/13/25 09:16 Temperature 97.1 F L Temperature Source Temporal Pulse Rate 78 76 Pulse Rate [Lying] 68 Pulse Rate [Sitting (for 1 minute prior to obtaining)] 63 Pulse Rate [Standing (for 1 minute prior to obtaining)] 72 Respiratory Rate 14 18 Blood Pressure 165/96 H 141/81 H Blood Pressure [Lying] 140/84 H Blood Pressure [Sitting (for 1 minute prior to obtaining)] 139/91 H Blood Pressur (more content not included)... Normal [facility] Eosinophil percentageOrdered By: Fernando Menendez on 04-13-2025 Eosinophils/100 WBC (Bld) 2.8 % 0-5 [facility] Erythrocyte distribution wid th ratioOrdered By: Fernando Menendez on 04-13-2025 Erythrocyte distribution width (RBC) [Ratio] 12.6 % 11.6-14.6 [facility] Erythrocyte distribution wid th standard deviationOrdered By: Fernando Menendez on 04-13-2025 Erythrocyte distribution width (RBC) [Ratio] 39.8 fl 35.1-43.9 [facility] Glomerular filtration rate ( GFR) estimation/1.73 sq m using serum, plasma, or whole bOrdered By: Fernando Menendez on 04-13-2025 GFR/1.73 sq M.predicted among non-blacks MDRD (S/P/Bld) [Vol rate/Area] 90 mL/min/{1.73_m2} >60 [facility] Comment on above: mL/min/1.73m2 CKD-EP I Creatinine Equation (2020) Hematocrit Auto (Bld) [Volum e fraction]Ordered By: Fernando Menendez on 04-13-2025 Hematocrit (Bld) [Volume fraction] 47.0 % 40-54 [facility] Hemoglobin measurementOrdere d By: Fernando Menendez on 04-13-2025 Hemoglobin (Bld) [Mass/Vol] 16.0 g/dL 13.0-16.5 [facility] Immature granulocytes/100 WB C Auto (Bld)Ordered By: Fernando Menendez on 04-13-2025 Immature granulocytes/100 WBC (Bld) 0.100 % 0.0-0.9 [facility] Comment on above: IG% - Immature Granu locytes (promyelocytes, myelocytes and metamyelocytes) > 1% indicates that a LEFT SHIFT is Present. Ketones Test strip Ql (U)Ord ered By: Fernando Menendez on 04-13-2025 Ketones Ql (U) Negative Negative [facility] Laboratory - Chemistry and C hemistry - challengeOrdered By: Fernando Menendez on 04-13-2025 AST [Catalytic activity/Vol] 22 U/L <38 [facility] MCV (mean corpuscular volume ) determinationOrdered By: Fernando Menendez on 04-13-2025 MCV (RBC) [Entitic vol] 86.7 fL 80-94 [facility] Mean corpuscular hemoglobin (MCH) determinationOrdered By: Fernando Menendez on 04-13-2025 MCH (RBC) [Entitic mass] 29.5 pg 27.0-32.0 [facility] Mean corpuscular hemoglobin concentration (MCHC) determinationOrdered By: Fernando Menendez on 04-13-2025 MCHC (RBC) [Mass/Vol] 34.0 g/dL 32-36 [facility] Mean platelet volume determi nationOrdered By: Fernando Menendez on 04-13-2025 Platelet mean volume (Bld) [Entitic vol] 10.6 fL 6.2-12.0 [facility] Microscopic analysis of urin e for red blood cells (RBC)Ordered By: Fernando Menendez on 04-13-2025 Microscopic analysis of urine for red blood cells (RBC) 0 SEEN /hpf 0-5 [facility] Monocyte percentageOrdered B y: Fernando Menendez on 04-13-2025 Monocytes/100 WBC (Bld) 12.4 % High 0-10 [facility] Mucus LM Ql (Urine sed)Order ed By: Fernando Menendez on 04-13-2025 Mucus Ql (Urine sed) 0 SEEN /hpf [facility] Neutrophil percentageOrdered By: Fernando Menendez on 04-13-2025 Neutrophils/100 WBC (Bld) 58.5 % 47-70 [facility] Nitrite Test strip Ql (U)Ord ered By: Frenando Menendez on 04-13-2025 Nitrite Ql (U) Negative Negative [facility] Nucleated red blood cell per centageOrdered By: Fernando Menendez on 04-13-2025 Nucleated RBC/100 WBC (Bld) [Ratio] 0 % 0-5 [facility] Platelet countOrdered By: Jalen Menendez on 04-13-2025 Platelets (Bld) [#/Vol] 221 10*3/uL 150-450 [facility] Potassium measurement (mass/ volume)Ordered By: Fernando Menendez on 04-13-2025 Potassium (Unsp spec) [Mass/Vol] 4.0 mmol/L 3.3-5.1 [facility] Protein Test strip Ql (U)Ord ered By: Fernando Menendez on 04-13-2025 Protein Ql (U) 15 mg/dl High Negative [facility] RBC Auto (Bld) [#/Vol]Ordere d By: Fernando Menendez on 04-13-2025 RBC (Bld) [#/Vol] 5.42 10*6/uL 4.6-6.2 [facility] Serum creatinine measurement (mass/volume)Ordered By: Fernando Menendez on 04-13-2025 Creatinine [Mass/Vol] 1.03 mg/dL 0.70-1.20 [facility] Serum globulin measurementOr dered By: Fernando Menendez on 04-13-2025 Globulin (S) [Mass/Vol] 2.6 g/dL 2.2-4.2 [facility] Serum glucose measurement (m ass/volume)Ordered By: Fernando Menendez on 04-13-2025 Glucose [Mass/Vol] 104 mg/dL High 70-[address] [facility] Serum or plasma alanine gunter otransferase (ALT) measurementOrdered By: Fernando Menendez on 04-13-2025 ALT [Catalytic activity/Vol] 23 U/L <47 [facility] Serum or plasma albumin cullen urement (mass/volume)Ordered By: Fernando Menendez on 04-13-2025 Albumin [Mass/Vol] 4.5 g/dL 3.5-5.[address] [facility] Serum or plasma albumin/glob ulin mass ratioOrdered By: Fernando Menendez on 04-13-2025 Albumin/Globulin [Mass ratio] 1.7 {ratio} 0.9-2.4 [facility] Serum or plasma alkaline jose elias sphatase measurementOrdered By: Fernando Menendez on 04-13-2025 ALP [Catalytic activity/Vol] 57 U/L 40-129 [facility] Serum or plasma calcium cullen urement (mass/volume)Ordered By: Fernando Menendez on 04-13-2025 Calcium [Mass/Vol] 9.3 mg/dL 7.6-11.[address] [facility] Serum or plasma urea nitroge n measurement (mass/volume)Ordered By: Fernando Menendez on 04-13-2025 Urea nitrogen [Mass/Vol] 11 mg/dL 4-19 [facility] Sodium levelOrdered By: Fernando Menendez on 04-13-2025 Sodium [Moles/Vol] 138 mmol/L 133-[address] [facility] Squamous epithelial cells de tection in urine sediment by light microscopyOrdered By: Fernando Menendez on 04-13-2025 Epithelial cells.squamous LM Ql (Urine sed) 0 SEEN /hpf 0-5 [facility] Total proteinOrdered By: Joan Menendez on 04-13-2025 Protein [Mass/Vol] 7.1 g/dL 5.9-8.[address] [facility] Urinalysis, Completeon 04-13 BACTERIA 0 SEEN Normal None Seen [facility] Comment on above: Order Comment: CLEAN CATCH Performed By: #### L 400.0001 #### [facility] [address] [place], [address] EPI,SQUAMOUS 0 SEEN Normal 0-5 [facility] Comment on above: Order Comment: CLEAN CATCH Performed By: #### L 400.0001 #### [facility] [address] [place], [address] Mucus Ql (Urine sed) 0 SEEN Normal [facility] Comment on above: Order Comment: CLEAN CATCH Performed By: #### L 400.0001 #### [facility] [address] [place], [address] RBC 0 SEEN Normal 0-5 [facility] Comment on above: Order Comment: CLEAN CATCH Performed By: #### L 400.0001 #### [facility] [address] [place], [address] WBC 0 SEEN Normal 0-5 [facility] Comment on above: Order Comment: CLEAN CATCH Performed By: #### L 400.0001 #### [facility] [place], [address] Urine clarityOrdered By: Joan Menendez on 04-13-2025 Clarity (U) Clear Clear [facility] Urine color determinationOrd ered By: Fernando Menendez on 04-13-2025 Color (U) Yellow Yellow [facility] Urine glucose detectionOrder ed By: Fernando Menendez on 04-13-2025 Glucose Ql (U) Normal mg/dl Normal [facility] Urine leukocyte esterase det ection by dipstickOrdered By: Fernando Menendez on 04-13-2025 Leukocyte esterase Test strip Ql (U) Negative Negative [facility] Urine pHOrdered By: Fernando lazo on 04-13-2025 pH (U) 7.0 [pH] 5.0 - 8.0 [facility] Urine sediment bacteria coun t by microscopy (number/high power field)Ordered By: Fernando Menendez on 04-13-2025 Bacteria LM.HPF (Urine sed) [#/Area] 0 /[HPF] None Seen [facility] Urine specific gravity measu rementOrdered By: Fernando Menendez on 04-13-2025 Specific gravity (U) [Rel density] 1.010 1.002-1.030 [facility] Urine urobilinogen measureme ntOrdered By: Fernando Menendez on 04-13-2025 Urobilinogen Ql (U) Normal mg/dl Normal [facility] White blood cell (WBC) count Ordered By: Fernando Menendez on 04-13-2025 WBC (Bld) [#/Vol] 7.3 10*3/uL 4.4-11.[address] [facility] White blood cell countOrdere d By: Fernando Menendez on 04-13-2025 White blood cell count 0 SEEN /hpf 0-5 [facility] Absolute lymphocyte countOrd ered By: Maggie Alexander on 01-02-2025 Lymphocytes Auto (Unsp spec) [#/Vol] 2.04 10*3/uL 0.83-4.51 [facility] Absolute neutrophil countOrd ered By: Maggie Alexander on 01-02-2025 Neutrophils (Bld) [#/Vol] 3.7 10*3/uL 2.0-7.7 [facility] Anion gap in Serum or Plasma Ordered By: Maggie Alexander on 01-02-2025 Anion gap [Moles/Vol] 10 mmol/L 5-15 [facility] Automated lymphocyte count a s percentage of total leukocytesOrdered By: Maggiemelissa Alexander on 01-02-2025 Lymphocytes/100 WBC Auto (Unsp spec) 30.9 % - [facility] BUN/creatinine ratioOrdered By: [facility] on 01-02-2025 Urea nitrogen/Creatinine [Mass ratio] 12.0 mg/mg 10- [facility] Basophil percentageOrdered B y: Maggie Alexander on 01-02-2025 Basophils/100 WBC (Bld) 0.9 % 0-1 [facility] Bilirubin directOrdered By: Maggiemelissa Alexander on 01-02-2025 Bilirubin.direct [Mass/Vol] 0.18 mg/dL 0.00-0.30 [facility] Bilirubin, Directon 01-03-20 25 Bilirubin.direct [Mass/Vol] 0.18 mg/dL Normal 0.00-0.30 [facility] Comment on above: Order Comment: SEND LIVER AND LIPID TO WELL Performed By: #### L 500.4050, L500.4100, L100.0100, L501.4700 ####[facility] [address] [place], [place], [id number] Bilirubin, totalOrdered By: Maggie Alexander on 01-02-2025 Bilirubin [Mass/Vol] 0.65 mg/dL 0.00-1.30 [facility] CBC W/Diff, Automatedon 12-06 Absolute Lymph 2.04 X10 3/uL Normal 0.83-4.51 [facility] Comment on above: Performed By: #### L 500.4050, L500.4100, L100.0100, [id number] ####[facility] [address] [place], [place], [id number] Absolute Neut 3.7 X10 3/uL Normal 2.0-7.7 [facility] Comment on above: Performed By: #### L 500.4050, L500.4100, L100.0100, [id number] ####[facility] [address] [place], [address] Basophils/100 WBC (Bld) 0.9 % Normal 0-1 [facility] Comment on above: Performed By: #### L 500.4050, L500.4100, L100.0100, [id number] ####[facility] [address] [place], [address] Eosinophils/100 WBC (Bld) 1.8 % Normal 0-5 [facility] Comment on above: Performed By: #### L 500.4050, L500.4100, L100.0100, [id number] ####[facility] [address] [place], [address] Erythrocyte distribution width (RBC) [Ratio] 12.8 % Normal 11.6-14.6 [facility] Comment on above: Performed By: #### L 500.4050, L500.4100, L100.0100, [id number] ####[facility] [address] [place], [address] Hematocrit (Bld) [Volume fraction] 48.2 % Normal 40-54 [facility] Comment on above: Performed By: #### L 500.4050, L500.4100, L100.0100, [id number] ####[facility] [address] [place], [address] Hemoglobin (Bld) [Mass/Vol] 16.3 g/dL Normal 13.0-16.5 [facility] Comment on above: Performed By: #### L 500.4050, L500.4100, L100.0100, [id number] ####[facility] [address] [place], [address] IG% 0.300 Normal 0.0-0.9 [facility] Comment on above: Result Comment: IG% - Immature Granulocytes (promyelocytes, myelocytes and metamyelocytes) > 1% indicates that a LEFT SHIFT is Present. Performed By: #### L 500.4050, L500.4100, L100.0100, [id number] ####[facility] [address] [place], [address] Lymphocytes/100 WBC (Bld) 30.9 % Normal 19-41 [facility] Comment on above: Performed By: #### L 500.4050, L500.4100, L100.0100, [id number] ####[facility] [address] [place], [address] MCH (RBC) [Entitic mass] 29.2 pg Normal 27.0-32.0 [facility] Comment on above: Performed By: #### L 500.4050, L500.4100, L100.0100, [id number] ####[facility] [address] [place], [address] MCHC (RBC) [Mass/Vol] 33.8 g/dL Normal 32-36 [facility] Comment on above: Performed By: #### L 500.4050, L500.4100, L100.0100, [id number] ####[facility] [address] [place], [address] MCV (RBC) [Entitic vol] 86.2 fL Normal 80-94 [facility] Comment on above: Performed By: #### L 500.4050, L500.4100, L100.0100, [id number] ####[facility] [address] [place], [address] Monocytes/100 WBC (Bld) 10.7 % High 0-10 [facility] Comment on above: Performed By: #### L 500.4050, L500.4100, L100.0100, [id number] ####[facility] [address] [place], [address] Neutrophils/100 WBC (Bld) 55.4 % Normal 47-70 [facility] Comment on above: Performed By: #### L 500.4050, L500.4100, L100.0100, [id number] ####[facility] [address] [place], [address] Nucleated RBC (Bld) [#/Vol] 0 10*3/uL Normal 0-5 [facility] Comment on above: Performed By: #### L 500.4050, L500.4100, L100.0100, [id number] ####[facility] [address] [place], [address] Platelet mean volume (Bld) [Entitic vol] 10.7 fL Normal 6.2-12.0 [facility] Comment on above: Performed By: #### L 500.4050, L500.4100, L100.0100, [id number] ####[facility] [address] [place], [address] Platelets (Bld) [#/Vol] 249 10*3/uL Normal 150-450 [facility] Comment on above: Performed By: #### L 500.4050, L500.4100, L100.0100, [id number] ####[facility] [address] [place], [address] RBC (Bld) [#/Vol] 5.59 10*6/uL Normal 4.6-6.2 [facility] Comment on above: Performed By: #### L 500.4050, L500.4100, L100.0100, [id number] ####[facility] [address] [place], [address] RDW SD 40.0 fl Normal 35.1-43.9 [facility] Comment on above: Performed By: #### L 500.4050, L500.4100, L100.0100, [id number] ####[facility] [address] [place], [address] WBC (Bld) [#/Vol] 6.6 10*3/uL Normal 4.4-11.[address] [facility] Comment on above: Performed By: #### L 500.4050, L500.4100, L100.0100, [id number] ####[facility] [address] [place], [address] Calculated very low density lipoprotein (VLDL) cholesterol measurementOrdered By: Maggie Alexander on 01-02-2025 Calculated very low density lipoprotein (VLDL) cholesterol measurement 47 mg/dL High 5-40 [facility] Carbon dioxide, total [Moles /volume] in Central venous bloodOrdered By: Maggie Alexander on 01-02-2025 CO2 [Moles/Vol] 25.1 mmol/L 21.0-32.0 [facility] Chloride assayOrdered By: Ra grace Alexander on 01-02-2025 Chloride [Moles/Vol] 101 mmol/L 98-108 [facility] Comprehensive Metabolic Prof ilon 01-02-2025 Albumin [Mass/Vol] 4.6 g/dL Normal 3.5-5.[address] [facility] Comment on above: Order Comment: SEND LIVER AND LIPID TO WELL Performed By: #### L 500.4050, L500.4100, L100.0100, [id number] ####[facility] [address] [place], [address] Albumin/Globulin [Mass ratio] 1.7 {ratio} Normal 0.9-2.4 [facility] Comment on above: Order Comment: SEND LIVER AND LIPID TO WELL Performed By: #### L 500.4050, L500.4100, L100.0100, [id number] ####[facility] [address] [place], [address] ALK PHOS 62 U/L Normal 40-129 [facility] Comment on above: Order Comment: SEND LIVER AND LIPID TO WELL Performed By: #### L 500.4050, L500.4100, L100.0100, [id number] ####[facility] [address] [place], [address] ALT [Catalytic activity/Vol] 21 U/L Normal <=46 [facility] Comment on above: Order Comment: SEND LIVER AND LIPID TO WELL Performed By: #### L 500.4050, L500.4100, L100.0100, [id number] ####[facility] [address] [place], [address] AST [Catalytic activity/Vol] 23 U/L Normal <=37 [facility] Comment on above: Order Comment: SEND LIVER AND LIPID TO WELL Performed By: #### L 500.4050, L500.4100, L100.0100, [id number] ####[facility] [address] [place], [address] Bilirubin [Mass/Vol] 0.65 mg/dL Normal 0.00-1.30 [facility] Comment on above: Order Comment: SEND LIVER AND LIPID TO WELL Performed By: #### L 500.4050, L500.4100, L100.0100, [id number] ####[facility] [address] [place], [address] BUN/CRE 12.0 RATIO Normal 10-20 [facility] Comment on above: Order Comment: SEND LIVER AND LIPID TO WELL Performed By: #### L 500.4050, L500.4100, L100.0100, [id number] ####[facility] [address] [place], [address] Calcium [Mass/Vol] 9.4 mg/dL Normal 7.6-11.[address] [facility] Comment on above: Order Comment: SEND LIVER AND LIPID TO WELL Performed By: #### L 500.4050, L500.4100, L100.0100, L501.4700 ####[facility] [address] [place], [address] Chloride [Moles/Vol] 101 mmol/L Normal 98-108 [facility] Comment on above: Order Comment: SEND LIVER AND LIPID TO WELL Performed By: #### L 500.4050, L500.4100, L100.0100, L501.4700 ####[facility] [address] [place], [address] CO2 [Moles/Vol] 25.1 mmol/L Normal 21.0-32.0 [facility] Comment on above: Order Comment: SEND LIVER AND LIPID TO WELL Performed By: #### L 500.4050, L500.4100, L100.0100, [id number] ####[facility] [address] [place], [address] Creatinine [Mass/Vol] 1.13 mg/dL Normal 0.70-1.20 [facility] Comment on above: Order Comment: SEND LIVER AND LIPID TO WELL Performed By: #### L 500.4050, L500.4100, L100.0100, L501.4700 ####[facility] [address] [place], [address] GAP 10 Normal 5-15 [facility] Comment on above: Order Comment: SEND LIVER AND LIPID TO WELL Performed By: #### L 500.4050, L500.4100, L100.0100, L501.4700 ####[facility] [address] [place], [address] GFR/1.73 sq M.predicted among non-blacks MDRD (S/P/Bld) [Vol rate/Area] 81 mL/min/{1.73_m2} Normal >60 [facility] Comment on above: Order Comment: SEND LIVER AND LIPID TO WELL Result Comment: mL/m in/1.73m2 CKD-EPI Creatinine Equation (2020) Performed By: #### L 500.4050, L500.4100, L100.0100, L501.4700 ####[facility] [address] [place], [address] Globulin (S) [Mass/Vol] 2.7 g/dL Normal 2.2-4.2 [facility] Comment on above: Order Comment: SEND LIVER AND LIPID TO WELL Performed By: #### L 500.4050, L500.4100, L100.0100, L501.4700 ####[facility] [address] [place], [address] Glucose [Mass/Vol] 100 mg/dL High 70-[address] [facility] Comment on above: Order Comment: SEND LIVER AND LIPID TO WELL Performed By: #### L 500.4050, L500.4100, L100.0100, L501.4700 ####[facility] [address] [place], [address] Potassium [Moles/Vol] 4.1 mmol/L Normal 3.3-5.1 [facility] Comment on above: Order Comment: SEND LIVER AND LIPID TO WELL Result Comment: Hemo lysis present, Results??could be affected. ?? Performed By: #### L 500.4050, L500.4100, L100.0100, L501.4700 ####[facility] [address] [place], [address] Sodium [Moles/Vol] 136 mmol/L Normal 133-[address] [facility] Comment on above: Order Comment: SEND LIVER AND LIPID TO WELL Performed By: #### L 500.4050, L500.4100, L100.0100, L501.4700 ####[facility] [address] [place], [place], [id number] T PROT 7.3 g/dL Normal 5.9-8.4 [facility] Comment on above: Order Comment: SEND LIVER AND LIPID TO WELL Performed By: #### L 500.4050, L500.4100, L100.0100, L501.4700 ####[facility] [address] [place], [place], [id number] Urea nitrogen [Mass/Vol] 14 mg/dL Normal 4-19 [facility] Comment on above: Order Comment: SEND LIVER AND LIPID TO WELL Performed By: #### L 500.4050, L500.4100, L100.0100, L501.4700 ####[facility] [address] [place], [place], [id number] Eosinophil percentageOrdered By: Maggie Alexander on 01-02-2025 Eosinophils/100 WBC (Bld) 1.8 % 0-5 [facility] Erythrocyte distribution wid th ratioOrdered By: Maggie Alexander on 01-02-2025 Erythrocyte distribution width (RBC) [Ratio] 12.8 % 11.6-14.6 [facility] Erythrocyte distribution wid th standard deviationOrdered By: Maggiemelissa Alexander on 01-02-2025 Erythrocyte distribution width (RBC) [Ratio] 40.0 fl 35.1-43.9 [facility] Glomerular filtration rate ( GFR) estimation/1.73 sq m using serum, plasma, or whole bOrdered By: Maggie Alexander on 01-02-2025 GFR/1.73 sq M.predicted among non-blacks MDRD (S/P/Bld) [Vol rate/Area] 81 mL/min/{1.73_m2} >60 [facility] Comment on above: mL/min/1.73m2 CKD-EP I Creatinine Equation (2020) Hematocrit Auto (Bld) [Volum e fraction]Ordered By: Maggie Alexander on 01-02-2025 Hematocrit (Bld) [Volume fraction] 48.2 % 40-54 [facility] Hemoglobin measurementOrdere d By: Maggie Alexander on 01-02-2025 Hemoglobin (Bld) [Mass/Vol] 16.3 g/dL 13.0-16.5 [facility] Immature granulocytes/100 WB C Auto (Bld)Ordered By: Maggiemelissa Alexander on 01-02-2025 Immature granulocytes/100 WBC (Bld) 0.300 % 0.0-0.9 [facility] Comment on above: IG% - Immature Granu locytes (promyelocytes, myelocytes and metamyelocytes) > 1% indicates that a LEFT SHIFT is Present. LDL calc ser/plasOrdered By: Maggie Alexander on 01-02-2025 Cholesterol in LDL [Mass/Vol] 133 mg/dL [facility] Comment on above: Ddjcbbusaf=863-632 m g/dL & Higher Axkl=606 mg/dL or greater Laboratory - Chemistry and C hemistry - challengeOrdered By: Maggie Alexander on 01-02-2025 AST [Catalytic activity/Vol] 23 U/L <38 [facility] Lipid Profileon 01-02-2025 CHOL:HDL 5.64 Normal [facility] Comment on above: Order Comment: SEND LIVER AND LIPID TO WELL Performed By: #### L 500.4050, L500.4100, L100.0100, L501.4700 ####[facility] [address] [place], [address] Cholesterol [Mass/Vol] 219 mg/dL High <=200 [facility] Comment on above: Order Comment: SEND LIVER AND LIPID TO WELL Result Comment: Chol esterol level, Desirable <200 mg/dL Borderline high cholesterol 200-239 mg/dL High cholesterol >=240 mg/dL Recommendations of the NCEP Adult Treatment Panel for the following risk-cutoff thresholds for the [place] population. Performed By: #### L 500.4050, L500.4100, L100.0100, L501.4700 ####[facility] [address] [place], [address] Cholesterol in HDL [Mass/Vol] 39 mg/dL Low [facility] Comment on above: Order Comment: SEND LIVER AND LIPID TO WELL Result Comment: [place] onal Cholesterol Education Program (NCEP) guidelines: <40 mg/dL: Low HDL-cholesterol (major risk factor for CHD) >= 60 mg/dL: High HDL-cholesterol (negative risk factor for CHD) HDL-cholesterol is affected by a number of factors, e.g. smoking, exercise, hormones, sex and age. Performed By: #### L 500.4050, L500.4100, L100.0100, L501.4700 ####[facility] [address] [place], [address] Cholesterol in LDL [Mass/Vol] 133 mg/dL Normal [facility] Comment on above: Order Comment: SEND LIVER AND LIPID TO WELL Result Comment: Bord lqbbzb=577-318 mg/dL Higher Tzdk=037 mg/dL or greater Performed By: #### L 500.4050, L500.4100, L100.0100, L501.4700 ####[facility] [address] [place], [address] Cholesterol in VLDL [Mass/Vol] 47 mg/dL High 5-40 [facility] Comment on above: Order Comment: SEND LIVER AND LIPID TO WELL Performed By: #### L 500.4050, L500.4100, L100.0100, L501.4700 ####[facility] [address] [place], [address] Triglyceride [Mass/Vol] 235 mg/dL High [facility] Comment on above: Order Comment: SEND LIVER AND LIPID TO WELL Result Comment: The drugs N-Acetylcysteine and Metamizole may falsely depress this assay. Normal range: <150 mg/dL Borderline High: 150-199 mg/dL High: 200-499 mg/dL Very High: >500 mg/dL Performed By: #### L 500.4050, L500.4100, L100.0100, L501.4700 ####[facility] [address] [place], [address] CHOL Normal <=200 [facility] Comment on above: Result Comment: DUPL ICATE Performed By: #### L 500.3400, L500.4100 ####[facility] [address] [place], [address] CHOL:HDL Normal [facility] Comment on above: Result Comment: DUPL ICATE Performed By: #### L 500.3400, L500.4100 ####[facility] [address] [place], [address] CLDL Normal [facility] Comment on above: Result Comment: DUPL ICATE Performed By: #### L 500.3400, L500.4100 ####[facility] [address] [place], [address] HDL Normal [facility] Comment on above: Result Comment: DUPL ICATE Performed By: #### L 500.3400, L500.4100 ####[facility] [address] [place], [address] TRIG Normal [facility] Comment on above: Result Comment: DUPL ICATE Performed By: #### L 500.3400, L500.4100 ####[facility] [address] [place], [address] VLDL Normal 5-40 [facility] Comment on above: Result Comment: DUPL ICATE Performed By: #### L 500.3400, L500.4100 ####[facility] [address] [place], [address] Liver Profileon 01-02-2025 ALB Normal 3.5-5.0 [facility] Comment on above: Result Comment: DUPL ICATE Performed By: #### L 500.3400, L500.4100 ####[facility] [address] [place], [address] ALK PHOS Normal 40-129 [facility] Comment on above: Result Comment: DUPL ICATE Performed By: #### L 500.3400, L500.4100 ####[facility] [address] [place], [address] ALT Normal <=46 [facility] Comment on above: Result Comment: DUPL ICATE Performed By: #### L 500.3400, L500.4100 ####[facility] [address] [place], [address] AST Normal <=37 [facility] Comment on above: Result Comment: DUPL ICATE Performed By: #### L 500.3400, L500.4100 ####[facility] [address] [place], [address] D BILI Normal 0.00-0.30 [facility] Comment on above: Result Comment: DUPL ICATE Performed By: #### L 500.3400, L500.4100 ####[facility] [address] [place], [address] T BILI Normal 0.00-1.30 [facility] Comment on above: Result Comment: DUPL ICATE Performed By: #### L 500.3400, L500.4100 ####[facility] [address] [place], [address] T PROT Normal 5.9-8.4 [facility] Comment on above: Result Comment: DUPL ICATE Performed By: #### L 500.3400, L500.4100 ####[facility] [address] [place], [address] MCV (mean corpuscular volume ) determinationOrdered By: Maggie Alexander on 01-02-2025 MCV (RBC) [Entitic vol] 86.2 fL 80-94 [facility] Mean corpuscular hemoglobin (MCH) determinationOrdered By: Maggie Alexander on 01-02-2025 MCH (RBC) [Entitic mass] 29.2 pg 27.0-32.0 [facility] Mean corpuscular hemoglobin concentration (MCHC) determinationOrdered By: Maggie Alexander on 01-02-2025 MCHC (RBC) [Mass/Vol] 33.8 g/dL 32-36 [facility] Mean platelet volume determi nationOrdered By: Maggie Alexander on 01-02-2025 Platelet mean volume (Bld) [Entitic vol] 10.7 fL 6.2-12.0 [facility] Monocyte percentageOrdered B y: Maggie Alexander on 01-02-2025 Monocytes/100 WBC (Bld) 10.7 % High 0-10 [facility] Neutrophil percentageOrdered By: Maggie Alexander on 01-02-2025 Neutrophils/100 WBC (Bld) 55.4 % 47-70 [facility] Nucleated red blood cell per centageOrdered By: Maggie Alexander on 01-02-2025 Nucleated RBC/100 WBC (Bld) [Ratio] 0 % 0-5 [facility] Platelet countOrdered By: Ra grace Alexander on 01-02-2025 Platelets (Bld) [#/Vol] 249 10*3/uL 150-450 [facility] Potassium measurement (mass/ volume)Ordered By: Maggie Alexander on 01-02-2025 Potassium (Unsp spec) [Mass/Vol] 4.1 mmol/L 3.3-5.1 [facility] Comment on above: Hemolysis present, R esults could be affected. RBC Auto (Bld) [#/Vol]Ordere d By: Maggie Alexander on 01-02-2025 RBC (Bld) [#/Vol] 5.59 10*6/uL 4.6-6.2 [facility] Screening total cholesterol/ high density lipoprotein (HDL) cholesterol ratioOrdered By: Maggie Alexander on 01-02-2025 Cholesterol.total/Choles terol in HDL [Mass ratio] 5.64 {ratio} [facility] Serum creatinine measurement (mass/volume)Ordered By: Maggie Alexander on 01-02-2025 Creatinine [Mass/Vol] 1.13 mg/dL 0.70-1.20 [facility] Serum globulin measurementOr dered By: Maggie Alexander on 01-02-2025 Globulin (S) [Mass/Vol] 2.7 g/dL 2.2-4.2 [facility] Serum glucose measurement (m ass/volume)Ordered By: Maggie Alexander on 01-02-2025 Glucose [Mass/Vol] 100 mg/dL High 70-[address] [facility] Serum or plasma alanine gunter otransferase (ALT) measurementOrdered By: Maggie Alexander on 01-02-2025 ALT [Catalytic activity/Vol] 21 U/L <47 [facility] Serum or plasma albumin cullen urement (mass/volume)Ordered By: Maggie Alexander on 01-02-2025 Albumin [Mass/Vol] 4.6 g/dL 3.5-5.[address] [facility] Serum or plasma albumin/glob ulin mass ratioOrdered By: Maggie Alexander on 01-02-2025 Albumin/Globulin [Mass ratio] 1.7 {ratio} 0.9-2.4 [facility] Serum or plasma alkaline jose elias sphatase measurementOrdered By: Maggie Alexander on 01-02-2025 ALP [Catalytic activity/Vol] 62 U/L 40-129 [facility] Serum or plasma calcium cullen urement (mass/volume)Ordered By: Maggie Alexander on 01-02-2025 Calcium [Mass/Vol] 9.4 mg/dL 7.6-11.[address] [facility] Serum or plasma cholesterol in HDL measurement (mass/volume)Ordered By: Maggie Alexander on 01-02-2025 Cholesterol in HDL [Mass/Vol] 39 mg/dL Low >40 [facility] Comment on above: National Cholesterol Education Program (NCEP) guidelines:<40 mg/dL: Low HDL-cholesterol (major risk factor for CHD)>= 60 mg/dL: High HDL-cholesterol (negative risk factor for CHD)HDL-cholesterol is affected by a number of factors, e.g. smoking, exercise, hormones, sex and age. Serum or plasma cholesterol measurement (mass/volume)Ordered By: Maggie Alexander on 01-02-2025 Cholesterol [Mass/Vol] 219 mg/dL High <201 [facility] Comment on above: Cholesterol level, D esirable <200 mg/dLBorderline high cholesterol 200-239 mg/dLHigh cholesterol >=240 mg/dLRecommendations of the NCEP Adult Treatment Panel for the following risk-cutoff thresholds for the [place] population. Serum or plasma urea nitroge n measurement (mass/volume)Ordered By: Maggie Alexander on 01-02-2025 Urea nitrogen [Mass/Vol] 14 mg/dL 4-19 [facility] Sodium levelOrdered By: Kassidy Alexander on 01-02-2025 Sodium [Moles/Vol] 136 mmol/L 133-[address] [facility] Total proteinOrdered By: Ej Alexander on 01-02-2025 Protein [Mass/Vol] 7.3 g/dL 5.9-8.[address] [facility] Triglycerides measurementOrd ered By: Maggie Alexander on 01-02-2025 Triglyceride [Mass/Vol] 235 mg/dL High <199 [facility] Comment on above: The drugs N-Acetylcy steine and Metamizole may falsely depress this assay. Normal range: <150 mg/dLBorderline High: 150-199 mg/dLHigh: 200-499 mg/dLVery High: >500 mg/dL White blood cell (WBC) count Ordered By: Maggie Alexander on 01-02-2025 WBC (Bld) [#/Vol] 6.6 10*3/uL 4.4-11.[address] [facility] PROLACTIN 4465on 09-10-2024 PROLACTIN 9.0 ng/mL Normal 3.9-22.7 [facility] Comment on above: Performed By: #### L 3100.5310, L503.6550, L3400.3800, L3100.5055, L3100.5400 #### [facility] [place], [address] Testosterone, Total / Freeon 09-10-2024 TESTOSTER,FREE 11.82 ng/dL Normal 5.00-21.00 [facility] Comment on above: Order Comment: N Performed By: #### L 3100.5310, L503.6550, L3400.3800, L3100.5055, L3100.5400 #### [facility] [address] [place], [address] TESTOSTER,TOTAL 312 ng/dL Normal 264-916 [facility] Comment on above: Order Comment: N Result Comment: Adul t male reference interval is based on a population of healthy nonobese males (BMI <30) between 19 and 39 years old. Bryan et.al. JCEM 2017,102;6095-2988. PMID: [id number]. Performed By: #### L 3100.5310, L503.6550, L3400.3800, L3100.5055, L3100.5400 #### [facility] [address] [place], [address] TESTOSTERONE,%F 3.79 Normal 1.50-4.20 [facility] Comment on above: Order Comment: N Performed By: #### L 3100.5310, L503.6550, L3400.3800, L3100.5055, L3100.5400 #### [facility] [address] [place], [address] Transferrinon 09-10-2024 Transferrin [Mass/Vol] 261 mg/dL Normal 177-329 [facility] Comment on above: Result Comment: Perf ormed at: [facility] [address] [id number] Industrial Tech Instructor: Giovani Dupont PhD, Phone: [phone] Performed at: [facility] [address] [id number] Industrial Tech Instructor: Alhaji Patel MD, Phone: [phone] Performed By: #### L 3100.5310, L503.6550, L3400.3800, L3100.5055, L3100.5400 ####[facility] [address] [place], [place], [id number] FSH and LHon 09-05-2024 FSH 2.2 mIU/mL Normal [facility] Comment on above: Result Comment: NORMAL REFERENCE RANGES FEMALE FOLLICULAR 2.3 - 12.6 mIU/mL MID-CYCLE PEAK 5.2 - 17.5 mIU/mL LUTEAL 1.7 - 12.9 mIU/mL POST-MENOPAUSAL ON MHT 5.9 - 72.8 mIU/mL NOT ON MHT 12.7 - 132.2 mlU/mL MALE 0.7 - 10.8 mIU/mL Performed By: #### L 3100.5310, L503.6550, L3400.3800, L3100.5055, L3100.5400 #### [facility] [address] [place], [address] LH 2.1 mIU/mL Normal [facility] Comment on above: Result Comment: NORMAL REFERENCE RANGES FEMALE FOLLICULAR 1.9 - 26.2 mIU/mL MID-CYCLE PEAK 22.8 - 76.1 mIU/mL LUTEAL 0.6 - 16.6 mIU/mL POST-MENOPAUSAL ON MHT 1.1 - 52.4 mIU/mL NOT ON MHT 8.6 - 61.8 mIU/mL MALE 1.2 - 10.6 mIU/mL Performed By: #### L 3100.5310, L503.6550, L3400.3800, L3100.5055, L3100.5400 #### [facility] [address] [place], [place], [address] Ferritinon 09-05-2024 Ferritin [Mass/Vol] 142 ng/mL Normal 26-388 [facility] Comment on above: Performed By: #### L 3100.5310, L503.6550, L3400.3800, L3100.5055, L3100.5400 #### [facility] [address] [place], [address] Lipoprotein Aon 08-25-2024 Lipoprotein a [Moles/Vol] 18.8 nmol/L Normal <75.0 [facility] Comment on above: Result Comment: Note : Values greater than or equal to 75.0 nmol/L may indicate an independent risk factor for CHD, but must be evaluated with caution when applied to non- populations due to the influence of genetic factors on Lp(a) across ethnicities. Performed at: - [facility] [id number] Industrial Tech Instructor: Giovani Dupont PhD, Phone: [phone] Performed By: #### L 3400.4600 #### [facility] [address] [place], [place], [address] Testosterone, Serum Totalon 08-21-2024 Testosterone [Mass/Vol] 206.22 ng/dL Normal [facility] Comment on above: Result Comment: CENT RAL 90% REFERENCE RANGES MALE AGE <50 197.44 - 669.58 ng/dL MALE AGE > or = 50 187.72 - 684.19 ng/dL FEMALE AGE <50 8.38 - 35.01 ng/dL FEMALE AGE > or = 50 <7.00 - 35.92 ng/dL Effective as of 03/01/21 Performed By: #### L 509.3000 ####[facility] [address] [place], [place], [address] Cardiology Visit Reporton Cardiology Visit Report [facility] [address] [place] [address] OFFICE VISIT Date of Service: 07/02/24 MR#: [id number] Acct: [id number] Name: ROBERT GARNICA Rep #: [id number] : 1980 Provider: LILIBETH jon Age/Sex: 44/M Location: [facility] Status: Signed HPI HPI History of Present [...] cuff Intake Visit Reasons: 3 M FU Shake Packer Required: No Is patient in pain?: No [...] the past year?: No PFSH Medical History (Reviewed 07/02/24 @ 09:04 by Johnathon Villegas [employer]OCOLATE REFINING ROLLER, CHOCOLATE REFINING ROLLER-C) Gout ETOH abuse History of hypertension Chest pain Dysphagia Anxiety and depression GERD (gastroesophageal reflux disease) Hypertension Surgical History Hx of tooth extraction S/P ORIF (open reduction internal fixation) fracture Hx of knee surgery History of appendectomy Family History (Updated 07/02/24 @ 09:13 by Johnathon Villegas NP, CHOCOLATE REFINING ROLLER-C) Father Myocardial infarction H/O endarterectomy S/P CABG [...] Musc: N (more content not included)... Normal [facility] Absolute lymphocyte countOrd ered By: Radha Ken on 11-24-2023 Lymphocytes Auto (Unsp spec) [#/Vol] 1.94 10*3/uL 0.83-4.51 [facility] Automated lymphocyte count a s percentage of total leukocytesOrdered By: Radha Ken on 11-24-2023 Lymphocytes/100 WBC Auto (Unsp spec) 30.4 % 19-41 [facility] Basophil percentageOrdered B y: Radha Ken on 11-24-2023 Basophils/100 WBC (Bld) 0.9 % 0-1 [facility] Bilirubin [Mass/Vol] 0.60 mg/dL 0.20-1.00 [facility] Comment on above: For patients on eltr ombopag therapy, use of Dimension [place] TBIL is not recommended. Chloride [Moles/Vol] 104 mmol/L 98-107 [facility] Cholesterol [Mass/Vol] 270 mg/dL <200 [facility] Comment on above: <200 mg/dL Desirable 200-240 mg/dL Borderline >240 mg/dL High Risk Eosinophils/100 WBC (Bld) 1.4 % 0-5 [facility] Glucose [Mass/Vol] 94 mg/dL 74-[address] [facility] Hemoglobin (Bld) [Mass/Vol] 16.6 g/dL 13.0-16.5 [facility] Monocytes/100 WBC (Bld) 9.7 % 0-10 [facility] Neutrophils (Bld) [#/Vol] 3.6 10*3/uL 2.0-7.7 [facility] Neutrophils/100 WBC (Bld) 56.8 % 47-70 [facility] Potassium [Moles/Vol] 4.0 mmol/L 3.5-5.1 [facility] Protein [Mass/Vol] 7.4 g/dL 6.4-8.[address] [facility] Sodium [Moles/Vol] 138 mmol/L 136-[address] [facility] Triglyceride [Mass/Vol] 369 mg/dL <199 [facility] Comment on above: The drugs N-Acetylcy steine and Metamizole may falsely depress this assay.Serum Triglycerides Reference Interval Normal <150 mg/dL Borderline high 150 - 199 mg/dL High 200 - 499 mg/dL Very High > or = 500 mg/dL WBC (Bld) [#/Vol] 6.4 10*3/uL 4.4-11.[address] [facility] Determination of erythrocyte mean corpuscular volume (MCV)Ordered By: Radha Ken on 11-24-2023 MCV (RBC) [Entitic vol] 89.0 fL 80-94 [facility] Erythrocyte distribution wid th ratioOrdered By: Radha Ken on 11-24-2023 Erythrocyte distribution width (RBC) [Ratio] 12.7 % 11.6-14.6 [facility] Erythrocyte distribution wid th standard deviationOrdered By: Radha Ken on 11-24-2023 Erythrocyte distribution width (RBC) [Entitic vol] 41.4 fL 35.1-43.9 [facility] Hematocrit Auto (Bld) [Volum e fraction]Ordered By: Radha Ken on 11-24-2023 Hematocrit (Bld) [Volume fraction] 50.9 % 40-54 [facility] Immature granulocytes/100 WB C Auto (Bld)Ordered By: Radha Ken on 11-24-2023 Immature granulocytes/100 WBC (Bld) 0.800 % 0.0-0.9 [facility] Comment on above: IG% - Immature Granu locytes (promyelocytes, myelocytes and metamyelocytes) > 1% indicates that a LEFT SHIFT is Present. Laboratory - Chemistry and C hemistry - challengeOrdered By: Radha Ken on 11-24-2023 Albumin/Globulin [Mass ratio] 1.2 {ratio} 0.9-2.4 [facility] ALP [Catalytic activity/Vol] 56 U/L 45-117 [facility] ALT [Catalytic activity/Vol] 50 U/L 16-61 [facility] Cholesterol in HDL [Mass/Vol] 39 mg/dL >40 [facility] Comment on above: The drugs N-Acetylcy steine and Metamizole may falsely depress this assay. Reference Range HDL <40 mg/dL Low HDL Cholesterol HDL >or= 60 mg/dL High HDL Cholesterol Cholesterol in LDL [Mass/Vol] 157 mg/dL 0-130 [facility] CO2 [Moles/Vol] 29.0 mmol/L 21.0-32.0 [facility] Globulin (S) [Mass/Vol] 3.3 g/dL 2.2-4.2 [facility] Urea nitrogen/Creatinine [Mass ratio] 10.8 mg/mg 10-20 [facility] Laboratory - Hematology and Cell countsOrdered By: Radha Ken on 11-24-2023 MCH (RBC) [Entitic mass] 29.0 pg 27.0-32.0 [facility] MCHC (RBC) [Mass/Vol] 32.6 g/dL 32-36 [facility] Nucleated RBC/100 WBC (Bld) [Ratio] 0 % 0-5 [facility] Platelet mean volume (Bld) [Entitic vol] 11.1 fL 6.2-12.0 [facility] Platelets (Bld) [#/Vol] 272 10*3/uL 150-450 [facility] No Panel InformationOrdered By: Radha Ken on 11-24-2023 Estimated GFR (MDRD) Amer 101 mL/min >60 [facility] Comment on above: GFR Calc Estimated GFR (MDRD) Non-Af Amer 84 mL/min >60 [facility] Comment on above: Non- GFR Calc VLDL Cholesterol 74 mg/dL 5-40 [facility] RBC Auto (Bld) [#/Vol]Ordere d By: Radha Ken on 11-24-2023 RBC (Bld) [#/Vol] 5.72 10*6/uL 4.6-6.2 [facility] Serum or plasma calcium cullen urement (mass/volume)Ordered By: Radha Ken on 11-24-2023 Calcium [Mass/Vol] 9.1 mg/dL 8.5-10.[address] [facility] Serum or plasma creatinine m easurement (mass/volume)Ordered By: Radha Ken on 11-24-2023 Creatinine [Mass/Vol] 1.02 mg/dL 0.70-1.30 [facility] Comment on above: The validity of the calculated GFR & GFRAA in patients over 70 years has not been determined. Clinical correlation is essential. Serum or plasma urea nitroge n measurement (mass/volume)Ordered By: Radha Ken on 11-24-2023 Urea nitrogen [Mass/Vol] 11 mg/dL 7-18 [facility] Serum or plasma uric acid me asurement (mass/volume)Ordered By: Radha Ken on 11-24-2023 Urate [Mass/Vol] 7.6 mg/dL 3.5-7.2 [facility] Comment on above: The drugs N-Acetylcy steine and Metamizole may falsely depress this assay. Thin prep Papanicolaou smear with manual screeningOrdered By: Radha Ken on 11-24-2023 Thin prep Papanicolaou smear with manual screening 4.1 g/dL 3.2-5.0 [facility] Thin prep Papanicolaou smear with manual screening 24 U/L 15-37 [facility] Thin prep Papanicolaou smear with manual screening 5 5-15 [facility] Basophil percentageOrdered B y: Dr. Ken on 09-15-2022 Bilirubin [Mass/Vol] 0.70 mg/dL 0.20-1.00 [facility] Comment on above: For patients on eltr ombopag therapy, use of Dimension [place] TBIL is not recommended. Chloride [Moles/Vol] 104 mmol/L 98-107 [facility] Cholesterol [Mass/Vol] 234 mg/dL <200 [facility] Comment on above: <200 mg/dL Desirable 200-240 mg/dL Borderline >240 mg/dL High Risk Glucose [Mass/Vol] 97 mg/dL 74-[address] [facility] Potassium [Moles/Vol] 4.3 mmol/L 3.5-5.1 [facility] Protein [Mass/Vol] 7.9 g/dL 6.4-8.[address] [facility] Sodium [Moles/Vol] 140 mmol/L 136-[address] [facility] Triglyceride [Mass/Vol] 231 mg/dL <199 [facility] Comment on above: The drugs N-Acetylcy steine and Metamizole may falsely depress this assay.Serum Triglycerides Reference Interval Normal <150 mg/dL Borderline high 150 - 199 mg/dL High 200 - 499 mg/dL Very High > or = 500 mg/dL Laboratory - Chemistry and C hemistry - challengeOrdered By: Dr. Ken on 09-15-2022 ALP [Catalytic activity/Vol] 59 U/L 45-117 [facility] ALT [Catalytic activity/Vol] 29 U/L 16-61 [facility] CO2 [Moles/Vol] 28.0 mmol/L 21.0-32.0 [facility] Globulin (S) [Mass/Vol] 3.5 g/dL 2.2-4.2 [facility] Urea nitrogen/Creatinine [Mass ratio] 15.1 mg/mg 10-20 [facility] No Panel InformationOrdered By: Dr. Ken on 09-15-2022 Estimated GFR (MDRD) Amer 97 mL/min >60 [facility] Comment on above: GFR Calc Estimated GFR (MDRD) Non-Af Amer 81 mL/min >60 [facility] Comment on above: Non- GFR Calc Serum or plasma albumin cullen urement (mass/volume)Ordered By: Dr. Ken on 09-15-2022 Albumin [Mass/Vol] 4.4 g/dL 3.2-5.[address] [facility] Serum or plasma albumin/glob ulin mass ratioOrdered By: Dr. Ken on 09-15-2022 Albumin/Globulin [Mass ratio] 1.3 {ratio} 0.9-2.4 [facility] Serum or plasma calcium cullen urement (mass/volume)Ordered By: Dr. Ken on 09-15-2022 Calcium [Mass/Vol] 9.5 mg/dL 8.5-10.[address] [facility] Serum or plasma cholesterol in HDL measurement (mass/volume)Ordered By: Dr. Ken on 09-15-2022 Cholesterol in HDL [Mass/Vol] 40 mg/dL >40 [facility] Comment on above: The drugs N-Acetylcy steine and Metamizole may falsely depress this assay. Reference Range HDL <40 mg/dL Low HDL Cholesterol HDL >or= 60 mg/dL High HDL Cholesterol Serum or plasma cholesterol in VLDL measurement (mass/volume)Ordered By: Dr. Ken on 09-15-2022 Cholesterol in VLDL [Mass/Vol] 46 mg/dL 5-40 [facility] Serum or plasma creatinine m easurement (mass/volume)Ordered By: Dr. Ken on 09-15-2022 Creatinine [Mass/Vol] 1.06 mg/dL 0.70-1.30 [facility] Comment on above: The validity of the calculated GFR & GFRAA in patients over 70 years has not been determined. Clinical correlation is essential. Serum or plasma low density lipoprotein (LDL) cholesterol measurement (mass/volume)Ordered By: Dr. Ken on 09-15-2022 Cholesterol in LDL [Mass/Vol] 148 mg/dL 0-130 [facility] Serum or plasma urea nitroge n measurement (mass/volume)Ordered By: Dr. Ken on 09-15-2022 Urea nitrogen [Mass/Vol] 16 mg/dL 7-18 [facility] Serum or plasma uric acid me asurement (mass/volume)Ordered By: Dr. Ken on 09-15-2022 Urate [Mass/Vol] 7.6 mg/dL 3.5-7.2 [facility] Comment on above: The drugs N-Acetylcy steine and Metamizole may falsely depress this assay. Thin prep Papanicolaou smear with manual screeningOrdered By: Dr. Ken on 09-15-2022 Thin prep Papanicolaou smear with manual screening 17 U/L 15-37 [facility] Thin prep Papanicolaou smear with manual screening 8 5-15 [facility] Absolute lymphocyte counton 04-08-2022 Lymphocytes Auto (Unsp spec) [#/Vol] 2.31 10*3/uL 0.83-4.51 [facility] Work Phone: Basophil percentageon 2021 Basophils/100 WBC (Bld) 1.2 % 0-1 [facility] Work Phone: Bilirubin [Mass/Vol] 0.60 mg/dL 0.20-1.00 [facility] Work Phone: Comment on above: For patients on eltr ombopag therapy, use of Dimension [place] TBIL is not recommended. Chloride [Moles/Vol] 102 mmol/L 98-107 [facility] Work Phone: Cholesterol [Mass/Vol] 253 mg/dL <200 [facility] Work Phone: Comment on above: <200 mg/dL Desirable 200-240 mg/dL Borderline >240 mg/dL High Risk Eosinophils/100 WBC (Bld) 1.5 % 0-5 [facility] Work Phone: [phone] Glucose [Mass/Vol] 98 mg/dL 74-[address] [facility] Work Phone: [phone] Neutrophils (Bld) [#/Vol] 4.7 10*3/uL 2.0-7.7 [facility] Work Phone: [phone] Neutrophils/100 WBC (Bld) 57.9 % 47-70 [facility] Work Phone: [phone] Potassium [Moles/Vol] 4.2 mmol/L 3.5-5.1 [facility] Work Phone: [phone] Comment on above: Slight Hemolysis, Re sult may be falsely increased. Protein [Mass/Vol] 7.7 g/dL 6.4-8.[address] [facility] Work Phone: [phone] Sodium [Moles/Vol] 138 mmol/L 136-[address] [facility] Work Phone: [phone] Triglyceride [Mass/Vol] 447 mg/dL <199 [facility] Work Phone: Comment on above: The drugs N-Acetylcy steine and Metamizole may falsely depress this assay. TRIGLYCERIDE IS GREATER THAN 400 mg/dL. LDL RESULT IS INVALID AND WILL NOT BE REPORTED.Serum Triglycerides Reference Interval Normal <150 mg/dL Borderline high 150 - 199 mg/dL High 200 - 499 mg/dL Very High > or = 500 mg/dL WBC (Bld) [#/Vol] 8.1 10*3/uL 4.4-11.[address] [facility] Work Phone: [phone] Blood erythrocytes count (nu mber/volume)on 04-08-2022 RBC (Bld) [#/Vol] 5.76 10*6/uL 4.6-6.2 [facility] Work Phone: [phone] Blood hemoglobin measurement (mass/volume)on 04-08-2022 Hemoglobin (Bld) [Mass/Vol] 17.2 g/dL 13.0-16.5 [facility] Work Phone: Blood lymphocytes/100 leukoc yteson 04-08-2022 Lymphocytes/100 WBC (Bld) 28.7 % 19-41 [facility] Work Phone: Blood monocytes/100 leukocyt eson 04-08-2022 Monocytes/100 WBC (Bld) 10.5 % 0-10 [facility] Work Phone: Blood platelet mean volumeon 04-08-2022 Platelet mean volume (Bld) [Entitic vol] 10.8 fL 6.2-12.0 [facility] Work Phone: Determination of erythrocyte mean corpuscular volume (MCV)on 04-08-2022 MCV (RBC) [Entitic vol] 89.9 fL 80-94 [facility] Work Phone: Hematocrit Auto (Bld) [Volum e fraction]on 04-08-2022 Hematocrit (Bld) [Volume fraction] 51.8 % 40-54 [facility] Work Phone: Laboratory - Chemistry and C hemistry - challengeon 04-08-2022 ALP [Catalytic activity/Vol] 64 U/L 45-117 [facility] Work Phone: ALT [Catalytic activity/Vol] 74 U/L 16-61 [facility] Work Phone: CO2 [Moles/Vol] 27.0 mmol/L 21.0-32.0 [facility] Work Phone: [phone] Globulin (S) [Mass/Vol] 3.8 g/dL 2.2-4.2 [facility] Work Phone: Urea nitrogen/Creatinine [Mass ratio] 9.2 mg/mg 10-20 [facility] Work Phone: Laboratory - Hematology and Cell countson 04-08-2022 Erythrocyte distribution width (RBC) [Entitic vol] 42.2 fL 35.1-43.9 [facility] Work Phone: Erythrocyte distribution width (RBC) [Ratio] 12.9 % 11.6-14.6 [facility] Work Phone: Immature granulocytes/100 WBC (Bld) 0.200 % 0.0-0.9 [facility] Work Phone: Comment on above: IG% - Immature Granu locytes (promyelocytes, myelocytes and metamyelocytes) > 1% indicates that a LEFT SHIFT is Present. MCH (RBC) [Entitic mass] 29.9 pg 27.0-32.0 [facility] Work Phone: [phone] Nucleated RBC/100 WBC (Bld) [Ratio] 0 % 0-5 [facility] Work Phone: [phone] MCHC Auto (RBC) [Mass/Vol]on 04-08-2022 MCHC (RBC) [Mass/Vol] 33.2 g/dL 32-36 [facility] Work Phone: No Panel Informationon 04-08 Estimated GFR (MDRD) Amer 85 mL/min >60 [facility] Work Phone: Comment on above: GFR Calc Estimated GFR (MDRD) Non-Af Amer 70 mL/min >60 [facility] Work Phone: Comment on above: Non- GFR Calc Prostate Specific Antigen Screen 0.44 ng/mL 0.00-4.00 [facility] Work Phone: Comment on above: This test was perfor med using the TPSA assay method for theiTOK chemistry system. Values obtained with differentassay methods cannot be used interchangably.When changing PSA assays in the course of monitoring apatient, additional sequential testing should be carriedout to confirm baseline values. Platelets bldon 04-08-2022 Platelets (Bld) [#/Vol] 272 10*3/uL 150-450 [facility] Work Phone: [phone] Serum or plasma albumin cullen urement (mass/volume)on 04-08-2022 Albumin [Mass/Vol] 3.9 g/dL 3.2-5.[address] [facility] Work Phone: [phone] Serum or plasma albumin/glob ulin mass ratioon 04-08-2022 Albumin/Globulin [Mass ratio] 1.0 {ratio} 0.9-2.4 [facility] Work Phone: Serum or plasma calcium cullen urement (mass/volume)on 04-08-2022 Calcium [Mass/Vol] 8.9 mg/dL 8.5-10.[address] [facility] Work Phone: Serum or plasma cholesterol in HDL measurement (mass/volume)on 04-08-2022 Cholesterol in HDL [Mass/Vol] 37 mg/dL >40 [facility] Work Phone: Comment on above: The drugs N-Acetylcy steine and Metamizole may falsely depress this assay. Reference Range HDL <40 mg/dL Low HDL Cholesterol HDL >or= 60 mg/dL High HDL Cholesterol Serum or plasma cholesterol in VLDL measurement (mass/volume)on 04-08-2022 Cholesterol in VLDL [Mass/Vol] [facility] Work Phone: Comment on above: Test not performed Serum or plasma creatinine m easurement (mass/volume)on 04-08-2022 Creatinine [Mass/Vol] 1.20 mg/dL 0.70-1.30 [facility] Work Phone: Comment on above: The validity of the calculated GFR & GFRAA in patients over 70 years has not been determined. Clinical correlation is essential. Serum or plasma low density lipoprotein (LDL) cholesterol measurement (mass/volume)on 04-08-2022 Cholesterol in LDL [Mass/Vol] [facility] Work Phone: Comment on above: Test not performed Serum or plasma urea nitroge n measurement (mass/volume)on 04-08-2022 Urea nitrogen [Mass/Vol] 11 mg/dL 7-18 [facility] Work Phone: Serum or plasma uric acid me asurement (mass/volume)on 04-08-2022 Urate [Mass/Vol] 9.4 mg/dL 3.5-7.2 [facility] Work Phone: Comment on above: The drugs N-Acetylcy steine and Metamizole may falsely depress this assay. Thin prep Papanicolaou smear with manual screeningon 04-08-2022 Thin prep Papanicolaou smear with manual screening 36 U/L 15-37 [facility] Work Phone: Comment on above: Slight Hemolysis, Re sult may be falsely increased. Thin prep Papanicolaou smear with manual screening 9 5-15 [facility] Work Phone: CT NECK SOFT TISSUE W IVCONo n 07-15-2019 CT NECK SOFT TISSUE W IVCON * * *Final Report* * * DATE OF EXAM: Jul 15 2019 2:11PM [facility] 0013 - CT NECK SOFT TISSUE W [...] molars. Parotid and submandibular spaces are normal. Heel Caser spaces appear normal. Nasal cavities and paranasal [...] or pathologic cervical lymphadenopathy. Patent aerodigestive tract. Director Medical Surgical: PSCB Transcribe Date/Time: Jul 15 2019 2:38P Dictated by : ADEN ERNST MD This examination was interpreted and the report reviewed and electronically signed by: ADEN ERNST MD on Jul 15 2019 2:47PM EST [id number] Normal [facility] PROGRESSon 07-15-2019 PROGRESS HNO ID: [id number] Author: Lilia Burkett (Tech) Service: ? Author Type: General Manager Land Department Type: Progress Notes Filed: 07/15/2019 2:14 PM [...] July 15, 2019 TIME: 2:14 PM Normal [facility] Acetylchol Rec/Blockon 07-11 Acetylchol Rec/Block <13 Normal <21 [facility] Comment on above: Performed By: #### C K, ACEBLC, ACHRA #### [facility] [address] [place] [address] #### ACEMOD #### [facility] [address] [place] [address] [phone] Acetylcholin Rec/Binon 07-11 INR Coag (Bld) [Relative time] {INR} Normal 0.0-0.5 [facility] Comment on above: Performed By: #### VINOD Bentley, ACHRA #### [facility] [address] [place], [place] [address] #### ACEMOD #### [facility] [address] [place] [address] [phone] Acetylcholin Rec/Modon 07-11 INR Coag (Bld) [Relative time] 0 % Normal <=45 [facility] Comment on above: Result Comment: (NOT E) [...] antibodies. Test developed and characteristics determined by [facility]. See Compliance Statement B: [employer] Performed by [facility], [address] [place] [address] [email or web address], Tanmay Myesr MD, Lab. Director Performed By: #### VINOD Bentley, ACHRA #### [facility] [address] [place], [place] [id number] #### ACEMOD #### [facility] [address] [place] [address] [phone] CKon 07-11-2019 CK [Catalytic activity/Vol] 127 U/L Normal 51-298 [facility] Comment on above: Performed By: #### C K, ACEBLC, ACHRA #### [facility] [address] [place] [id number] #### ACEMOD #### [facility] [address] [place] [address] [phone] CNOVon 07-11-2019 CNOV Office Visit (NENMMN ) ROBERT GARNICA ([id number]) 1980 M Date Time Provider Department 07/11/19 3:00 PM PAOLO CRUZ NEMYNORMN During your visit today, we recorded the following information about you: Pulse Respiration Blood pressure Weight 73/minute 18/minute 132/83 93 kg Height 1.803 m Paolo Cruz MD 07/11/2019 4:24 PM Signed NEUROLOGY CONSULT [facility] Chief Complaint: Dysphagia. REQUESTING PHYSICIAN: Cathy Duke MD My final recommendations will be communicated to the requesting health care provider by way of the shared medical record for internal providers or letter via the [employer] for external providers.??? History of [...] polyphagia. Psychiatric: No anxiety/depression. Integumentary:No skin rash. Hematologic/Lymphatic: No bruising, bleeding, swelling. Allergic/Immunologic: No allergies or immunodeficiency. All other systems reviewed are negative. PAST MEDICAL HISTORY Diagnosis Date - Allergic rhinitis, cause unspecified - Deviated nasal septum - Dysphagia, unspecified(339.65) Current Outpatient Medications on File Prior to [...] position sense are preserved bilaterally. Coordination: Normal rqjvhn-lsjd-okhdqg. Gait: Normal. DATA: Diagnostic tests reviewed for [...] d/o (MG), or a myopathic process. A CN/AOC DIRECTOR COMBAT PLANS OFFICER d/o is not apparent on clinical examination. [...] with more than 50% of the total fmsk-fy-ymqq time of the visit in counseling / coordination of care. Paolo Cruz MD Staff, Neurology and Neuromuscular Medicine Paolo Cruz MD 07/11/2019 3:37 PM Signed Blood work. CT neck/ soft tissue with contrast. Please have your primary care physician forward recent labs performed at her office. Please obtain MRI CD and report, mail it to: [facility] [address], [place], [place] [address] . Referring Provider: CATHY DUKE [[id number]] Allergies As of Date: 07/11/2019 Noted Allergy Reaction AMOXICILLIN 01/20/2008 environemtal [Other] 02/13/2008 Comments: Dust mites grasses (December and January) weeds (March, April and May) ragweed (March, April and May) LEVAQUIN (LEVOFLOXACIN) 01/20/2008 PENICILLINS 01/20/2008 Date Reviewed: 07/11/2019 Reviewed by: Mitali Boo - Fully Assessed Reason for Visit: New Patient [172] Primary Visit Diagnosis:Oropharyngea l dysphagia [R13.12] Other Visit Diagnosis:Weakness [R53.1] Order(s):ACETYLCHO R BIND AB [SQACHRA] Order #: [id number] FUTURE ACETYLCHO R BLOC AB [SQACEBLC] Order #: [id number] FUTURE ACETYLCHO R MOD AB [SQACEMOD] Order #: [id number] FUTURE CK CREATINE KINASE [SQCK] Order #: [id number] FUTURE CT NECK SOFT TISSUE W IVCON [3683450] Order #: [id number] FUTURE iv contrast (will be provided with [...] MRI CD and report, mail it to: [facility] [address], [place] [address] . Prescriptions ordered this encounter Disp Refills [...] by PAOLO CRUZ MD on 07/11/19 Normal [facility] PROGRESSon 07-11-2019 PROGRESS HNO ID: [id number] Author: Paolo Cruz Service: ? Author Type: Physician Type: Progress Notes Filed: 07/11/2019 4:24 PM Note Text: NEUROLOGY CONSULT [facility] Chief Complaint: Dysphagia. REQUESTING PHYSICIAN: Cathy Duke MD My final recommendations will be communicated to the requesting health care provider by way of the shared medical record for internal providers or letter via the [employer] for external providers.??? History of Present [...] polyphagia. Psychiatric: No anxiety/depression. Integumentary:No skin rash. Hematologic/Lymphatic: No bruising, bleeding, swelling. Allergic/Immunologic: No allergies or immunodeficiency. All other systems reviewed are negative. PAST MEDICAL HISTORY Diagnosis Date - Allergic rhinitis, cause unspecified - Deviated nasal septum - Dysphagia, unspecified(850.59) Current Outpatient Medications on File Prior to [...] position sense are preserved bilaterally. Coordination: Normal plhrbe-lvba-hpimqd. Gait: Normal. DATA: Diagnostic tests reviewed for [...] d/o (MG), or a myopathic process. A CN/AOC DIRECTOR COMBAT PLANS OFFICER d/o is not apparent on clinical examination. [...] with more than 50% of the total fvlj-ah-tzxz time of the visit in counseling / coordination of care. Paolo Cruz MD Staff, Neurology and Neuromuscular Medicine Normal [facility] Vital Signs Date Time Vital Sign Value Performing Clinician Faci jayme 04-13-2025 10:50-0400 Body temperature 98 [degF] Dr. Radha Ken DO Work Phone: [facility] 04-13-2025 10:50-0400 Diastolic blood pressure 78 mm[Hg] Dr. Radha Ken DO Work Phone: [facility] 04-13-2025 10:50-0400 Heart rate 64 /min Dr. Radha Ken DO Work Phone: [facility] 04-13-2025 10:50-0400 Respiratory rate 18 /min Dr. Radha Ken DO Work Phone: [facility] 04-13-2025 10:50-0400 SaO2% (BldA) [Mass fraction] 99 % Dr. Radha Ken DO Work Phone: [facility] 04-13-2025 10:50-0400 Systolic blood pressure 118 mm[Hg] Dr. Radha Ken DO Work Phone: [facility] 04-13-2025 07:16-0400 Body height 182.[address] Radha Ken DO Work Phone: [facility] 04-13-2025 07:16-0400 Body mass index (BMI) [Ratio] 29.3 kg/m2 Dr. Radha Ken DO Work Phone: [facility] 04-13-2025 07:16-0400 Body weight 98.[address] Radha Ken DO Work Phone: [facility] 11-19-2022 03:09-0400 Heart rate 75 /min [facility] 11-19-2022 03:09-0400 Respiratory rate 16 /min [facility] 11-19-2022 03:09-0400 SaO2% (BldA) [Mass fraction] 98 % [facility] 11-18-2022 22:54-0400 Body height 182.88 cm [facility] 11-18-2022 22:54-0400 Body mass index (BMI) [Ratio] 29.9 kg/m2 [facility] 11-18-2022 22:54-0400 Body temperature 98 [degF] [facility] 11-18-2022 22:54-0400 Body weight 100.3 kg [facility] 11-18-2022 22:54-0400 Diastolic blood pressure 109 mm[Hg] [facility] 11-18-2022 22:54-0400 Systolic blood pressure 173 mm[Hg] [facility] Encounters Encounter Date Encounter Type Care Provider Facility Start: 04-13-2025 End: 04-13-2025 Emergency department patient visit Dr. Radha Ken DO Work Phone: -Emergency Department Work Phone: Start: 01-06-2025 Encounter for genera l adult medical examination with abnormal findings Maggie Alexander [facility] Start: 01-02-2025 End: 01-02-[address] Radha Ken DO Work Phone: [facility] Work Phone: Start: 01-02-2025 End: 01-02-2025 Patient encounter procedure Maggie Hoffmangar [facility] Work Phone: Start: 01-02-2025 End: 01-02-2025 ambulatory Radha Malys Facility:[facility] Start: 12-17-2024 ambulatory Radha Malys Facility:[facility] Start: 09-05-2024 End: 09-05-20[facility] Start: 08-21-2024 End: 08-21-2024 ambulatory Radha Malys Facility:[facility] Start: 07-02-2024 End: 07-02-2024 ambulatory Radha Malys Facility:[facility] Start: 11-24-2023 End: 11-24-2023 ambulatory [facility] Work Phone: Start: 11-24-2023 End: 11-24-2023 Patient encounter procedure [facility] Work Phone: Start: 11-18-2022 End: 11-19-2022 Emergency department patient visit [facility]-Emergency Department Start: 09-15-2022 End: 09-15-2022 ambulatory [facility] Work Phone: Start: 09-15-2022 End: 09-15-2022 Patient encounter procedure [facility]Laboratory, Lasha Rosette [facility] Start: 04-08-2022 End: 04-08-2022 ambulatory [facility] Work Phone: Start: 04-08-2022 End: 04-08-2022 Patient encounter procedure [facility] Procedures Date Procedure Procedure Detail Performing Clinician Start: 04-13-2025 Urnls dip stick/tabl et reagent auto microscopy Dr. Radha Ken DO Work Phone: Start: 04-13-[address] Radha Ken DO Work Phone: Start: 04-13-2025 CT of head without contrast Dr. Radha Ken DO Work Phone: Start: 11-18-2022 Diagnostic radiograp hy of finger Plan of Treatment Date Care Activity Detail Author Start: 04-13-2025 [facility] Patient Education ED Dizziness, Uncertain Cause ED Near-Fainting, Uncertain Cause [facility] Work Phone: Patient referral [facility] Work Phone: Immunizations Immunization Date Immunization Notes Care Provider Manoj jaimes 11-19-2022 tetanus toxoid, redu jasen diphtheria toxoid, and acellular pertussis vaccine, adsorbed [facility] Payers Date Payer Category Payer Self-pay [id number] 2024 Unknown [id number] Unknown [facility] PLAN [id number] Unknown [id number] Unknown [id number] Unknown [id number] Unknown [id number] Unknown [id number] Unknown [id number] Social History Date Type Detail Facility Start: 08-10-2021 End: 11-19-2022 Tobacco smoking status NHIS Unknown if ever smoked [facility] Start: 12-11-2018 Heavy [facility] Start: 12-11-2018 None [facility] Start: 12-11-2018 Spouse/ Signif icant Other [facility] Start: 12-12-2018 Non-smoker [facility] Start: 1980 Sex Assigned At Male [facility] Start: 07-02-2024 End: 04-13-2025 Tobacco smoking status NHIS Ex-smoker (finding) [facility] Mental Status Date Assessment Result Facility 04-13-2025 Cognitive function Voice/Name [facility] Work Phone: Discharge summary 04-13-2025 Note Date & Type Note Facility 04-13-2025 Discharge summary [facility] Radiology Diagnostic study note 04-13-2025 Note Date & Type Note Facility 04-13-2025 Radiology Diagnostic study note [facility] Imaging Services [address] [place] [address] Brain/Head without Contrast MR#: [id number] Acct: [id number] Name: ROBERT GARNICA Rep #: [id number] : 1980 M 45 From: Pepe Arroyo MD PCP: Dr. Radha Ken DO Status: REG ER Study:Brain/Head without Contrast Date of Exa m: 04/13/25 Exam# [id number] Ordering Dr: Fernando Menendez MD PROCEDURE: BRAIN/HEAD WITHOUT CONTRAST 04/13/2025 REASON FOR EXAM: DIZZINESS Headaches. TECHNIQUE: Procedure Code: CTBR Modality: CT Procedure: BRAIN/HEAD WITHOUT CONTRAST Coronal and Sagittal reconstruction series were provided. One or more dose reduction techniques were used (e.g., Automated exposure control, adjustment of the mA and/or kV according to patient size, use of iterative reconstruction technique. RADIATION DOSE SUMMARY: CTDlvol: 44.99 mGy DLP: A 12.98 mGycm COMPARISON: Prior study dated December 11, 2018. FINDINGS: Brain: Normal CSF Spaces: Normal Sinuses/Mastoids: Clear at visualized levels Bones: Unremarkable CT/Brain/Head without Contrast IMPRESSION: NORMAL NONCONTRAST HEAD CT. Reading Location: [facility] CC: Dr. Fernando Menendez MD; Dr. Radha Ken DO ~ Director Medical Surgical: Signed [facility] Discharge summary Note Date & Type Note Facility Discharge summary Note Date/Time November 19, 2022 1:41am [facility] Medical Records Department [address] [place] [address] Emergency Department Summary 11/19/22 MR#: [id number] Acct: [id number] Name: ROBERT GARNICA Rep #:[id number] : 1980 42 From: Janet Krishnamurthy PCP: Dr. Radha Ken DO Status:REG ER Location: ED HPI History of Present Illness Chief Complaint: Foreign Body Informant: patient Narrative Narrative: Patient is a 42-year-old male apngx-mowg-glybnira. Unknown when last tetanus was. Presenting for injury to his left pinky finger. Patient was cleaning a catfish that he had caught and a jalen became lodged in his pinky finger. He haspain. Patient was worried it could be in his bone. He came in for further evaluation. No other complaints or injuries reported. [facility] Medical History GERD (gastroesophageal reflux disease) Hypertension [...] your Primary Care Provider. Call [facility] ([phone]) or report to the closest Emergency Room. Call 911 if necessary. 11/19/22 0302 <Electronically signed by Janet Ken DO> Cosigner Signature (if applicable): CC: Dr. Radha Ken DO ~ Signed [facility] Work Phone: Discharge summary Note Date & Type Note Facility Discharge summary Note Date/Time April 13, 2025 10:09am [facility] Medical Records Department [address] [place] [address] Emergency Department Summary 04/13/25 MR#: [id number] Acct: [id number] Name: ROBERT GARNICA Rep #:[id number] : 1980 45 From: Fernando Menendez MD PCP: Dr. Radha Ken DO Status:REG ER Location: ED HPI History of Present Illness Chief Complaint: Dizziness Narrative Narrative: 45-year-old male who denies significant past medical history except for hypertension presents with his because of multiple somatic complaints but mainly nausea and diarrhea but no vomiting, as well as lightheadedness and dizziness. He states that he went to the fair with his yesterday, but she states he did not drink anything all day. He did not really eat anything as well. This morning when he woke up at around 530, 2 hours ago, he felt very lightheaded, nauseated, and dizzy with slight vertiginous type symptoms. He hasright sided neck pain that is chronic that radiates to the right side with mild photophobia. States has had 4 episodes of nonbloody diarrhea as well. No recent fevers or chills, no cough. No abdominal pain. He states he feels off balance, and when he looks certain ways, he feels drunk however, he has not beendrinking alcohol. Seems to be worse with standing. [facility] Medical History Gout ETOH abuse History of hypertension Chest pain Dysphagia Anxiety and depression GERD (gastroesophageal reflux disease) Hypertension Home Medications ?Medication ?Instructions ?Recorded ?Last Taken ?Type epinephrine 0.3 mg/0.3 mL 0.3 mg (0.3 mL) IM Q10M PRN 02/08/21 Unknown Rx injection, auto-injector (EpiPen anaphylaxis #2 ea 2-Jovan) fluticasone propionate 50 spray intranasal 01/14/24 Un known History mcg/actuation nasal spray,suspension omeprazole 40 mg capsule,delayed 40 mg PO DAILY PRN Unknown History release losartan 50 mg tablet 25 mg PO DAILY 07/02/24 Unkn own History magnesium oxide 400 mg PO DAILY PRN 07/02/24 Unknown History meclizine 25 mg tablet 25 mg PO 4X/DAY PRN PRN Dizz iness 04/13/25 Unknown Rx #20 tabs Allergy/AdvReac Type Severity Reaction Status Date / Time aspirin Allergy Rash Verified 04/13/25 07:17 bee venom protein (honey bee) Allergy Anaphylaxis Verified 04/13/25 07:17 levofloxacin (From Levaquin) Allergy Hives Verified 04/13/25 07:17 peanut Allergy Hives Verified 04/13/25 07:17 Penicillins Allergy Anaphylaxis Verified 04/13/25 07:17 shellfish derived Allergy Hives Verified 04/13/25 07:17 Family History Father Myocardial infarction H/O endarterectomy S/P CABG x 3 Stent-45 Carotid artery disease Brother Myocardial infarction, Onset Age: 47 Afib Mother Afib CAD (coronary artery disease), Onset Age: 55 Grandfather Myocardial infarction Paternal- Late 40s Surgical History Hx of tooth extraction S/P ORIF (open reduction internal fixation) fracture Hx of knee surgery History of appendectomy Social History Smoking Status: Former smoker how long ago did patient quit smokin alcohol intake: current alcohol intake frequency: other Alcohol type: beer details: rarely substance use type: does not use caffeine: Yes Type: carbonated beverages Number of servings: 1, coffee Number of servings: 3 and tea Number of servings: 10 ROS ROS ED ROS Narrative Review of systems positive for lightheadedness and dizziness. Positive nausea but no vomiting. 4 episodes of nonbloody diarrhea. Right sided headache radiating from neck to scalp, and behind eye. Worse with standing. Feels off balance at times. EXAM Physical Exam Narrative Exam Narrative: Afebrile. Vital signs noted. Nontoxic-appearing. Cardiovascular examination feels a regular rate and rhythm. Lungs are clear to auscultation bilaterally. Abdomen is soft and nontender with positive bowel sounds, no guarding or rebound. Neurological examination is nonfocal, nonlateralizing. Awake, alert, oriented x 3. Interactive, asking during questions appropriately. DTRs, patellar equal and symmetric. NIH stroke scale is 0. Cerebellar functioning normal as tested. Const Vital Signs: 04/13/25 07:16 04/13/25 08:45 04/13/25 09:16 Temperature 97.1 F L Temperature Source Temporal Pulse Rate 78 76 Pulse Rate [Lying] 68 Pulse Rate [Sitting (for 1 minute prior to obtaining)] 63 Pulse Rate [Standing (for 1 minute prior to obtaining)] 72 Respiratory Rate 14 18 Blood Pressure 165/96 H 141/81 H Blood Pressure [Lying] 140/84 H Blood Pressure [Sitting (for 1 minute prior to obtaining)] 139/91 H Blood Pressure [Standing (for 1 minute prior to obtaining)] 131/95 H Blood Pressure Mean 119 101 Blood Pressure Mean [Lying] 102 Blood Pressure Mean [Sitting (for 1 minute prior to obtaining)] 107 Blood Pressure Mean [Standing (for 1 minute prior to obtaining)] 107 Pulse Ox 98 99 Oxygen Delivery Method Room Air Room Air MDM MDM MDM Narrative Medical decision making narrative: Differential diagnosis includes but not limited to intravascular volume depletion versus dehydration versus other electrolyte imbalance versus benign positional vertigo versus atypical migraine. I have low suspicion for TIA or stroke. I do not feel stroke team is indicated as he has an NIH stroke scale of0. Patient will be bolused normal saline and orthostatics obtained as well as EKG. Will obtain CT imaging of his brain as well. We will start with antiemetics so he could be seen if he will tolerate oral meclizine for benign positional vertigo. CBC and CMP will be checked as well. EKG was obtained and interpreted by myself independently as normal sinus rhythm at 66 bpm without ectopy or acute ST changes. No STEMI. No significant change from EKG dated January 14, 2024. I reviewed his laboratory work and he has normal white count of 7.3 with hemoglobin normal at 16.0, hematocrit 47, platelet countnormal at 221. CMP shows normal glucose of 104 with BUN 11 and creatinine 1.03,sodium normal at 138 and potassium normal at 4.0. No evidence of dehydration. Urinalysis negative for infection or ketones. Orthostatics negative as well. Repeat examination after Zofran shows that he is no longer nauseated. He was then given meclizine 25 mg orally which he tolerated. I reviewed the radiology report of the CT of the brain which shows no evidence of an acute process, no hemorrhage or mass. Patient was ambulated to the bathroom without difficulty. At this point in time, may have had more of a intravascular volume depletion or benign positionalvertigo. I feel he can be discharged safely home with follow-up. He was written a prescription for meclizine 25 mg to take up to 4 times a day and he will follow-up with his primary care provider. Return instructions to the emergency department were reviewed. Patient and agreeable to the plan. Disposition is discharged home in stable condition. History & Record Review Discussion w/independent historian: Patient and Family () Additional record(s) reviewed:: Prior ED visit (Essentially noncontributory to current chief complaint, seen for allergic reaction history of hypertension) Lab Data Attestation: I reviewed the patient's lab results. Labs: Laboratory Results - last 24 hr 04/13/25 04/13/25 07:37 09:00 WBC 7.3 RBC 5.42 Hgb 16.0 Hct 47.0 MCV 86.7 MCH 29.5 MCHC 34.0 RDW Std Deviation 39.8 RDW Coeff of Jamshid 12.6 Plt Count 221 MPV 10.6 Immature Gran % (Auto) 0.100 Neut % (Auto) 58.5 Lymph % (Auto) 25.1 [place] % (Auto) 12.4 H Eos % (Auto) 2.8 Baso % (Auto) 1.1 H Absolute Neuts (auto) 4.3 Absolute Lymphs (auto) 1.82 Nucleated RBC % 0 Sodium 138 Potassium 4.0 Chloride 102 Carbon Dioxide 25.2 Anion Gap 11 BUN 11 Creatinine 1.03 Estim Creat Clear Calc 107.60 Est GFR (MDRD) Non-Af 90 BUN/Creatinine Ratio 11.1 Glucose 104 H Calcium 9.3 Total Bilirubin 0.44 AST 22 ALT 23 Alkaline Phosphatase 57 Total Protein 7.1 Albumin 4.5 Globulin 2.6 Albumin/Globulin Ratio 1.7 Urine Color Yellow Urine Clarity Clear Urine pH 7.0 Ur Specific Cory 1.010 Urine Protein 15 H Urine Glucose (UA) Normal Urine Ketones Negative Urine Occult Blood Negative Urine Nitrite Negative Urine Bilirubin Negative Urine Urobilinogen Normal Ur Leukocyte Esterase Negative Urine RBC 0 SEEN Urine WBC 0 SEEN Ur Squamous Epith Cells 0 SEEN Urine Bacteria 0 SEEN Urine Mucus 0 SEEN Radiography Diagnostic Testing: Clinical Impression(s) from Imaging Studies Brain CT 04/13/25 07:31 IMPRESSION: NORMAL NONCONTRAST HEAD CT. Reading Location: [id number] Discharge Plan Triage Chief Complaint: Dizziness ED Provider: Fernando Menendez Dx/Rx/DC Orders Clinical Impression: Dizziness, Lightheadedness, Nausea Instructions: ED Dizziness, Uncertain Cause, ED Near-Fainting, Uncertain Cause Prescriptions: New meclizine 25 mg tablet 25 mg PO 4X/DAY PRN PRN (Reason: Dizziness) Qty: 20 0RF No Action losartan 50 mg tablet 25 mg PO DAILY Rx Instructions: Unable to tolerate the 50 mg dose. epinephrine [EpiPen 2-Jovan] 0.3 mg/0.3 mL auto-injector 0.3 mg IM Q10M PRN (Reason: anaphylaxis) Qty: 2 0RF Rx Instructions: for 2 doses omeprazole 40 mg capsule,delayed release(DR/EC) 40 mg PO DAILY PRN fluticasone propionate 50 mcg/actuation spray,suspension INTRANASAL magnesium oxide 400 mg magnesium tablet 400 mg PO DAILY PRN Stand Alone Forms: ED Work / School Excuse Primary Care Provider: Radha Ken Referrals: Radha Ken, [Primary Care Provider] - 3-5 Days if not improving Print Language: Tuvaluan Disposition Disposition: Home, Self Care What to do if you have Problems For any increased pain, shortness of breath, bleeding, nausea or vomiting, chestpain, or any unexpected problems, contact your Primary Care Provider. Call [facility] ([phone]) or report to the closest Emergency Room. Call 911 if necessary. 04/13/25 1009 <Electronically signed by Fernando Menendez MD> Cosigner Signature (if applicable): CC: Dr. Radha Ken DO ~ Signed [facility] Work Phone: Evaluation note Note Date & Type Note Facility Evaluation note No assessment information availa ble [facility] Work Phone: Hospital Discharge instructions Note Date & Type Note Facility Hospital Discharge instructions Additional Instructions Alternate ibuprofen and Tylenol for pain. Return if you have worsening pain or signs of infection. Avoid sun exposure and wear sunscreen while taking the antibiotics as they can increase sensitivity to sunlight. [facility] Work Phone: Hospital Discharge instructions Note Date & Type Note Facility Hospital Discharge instructions Additional Instructions Meclizine as needed for dizziness/vertigo. Return with new or worsening symptoms. Follow-up with your primary care provider. [facility] Work Phone: Reason for referral (narrative) Note Date & Type Note Facility Reason for referral (narrative) No reason for referral information available [facility] Work Phone: Summary Purpose Family History [...] Will No August 10 8:34am Power of Weatherseal Technician No August 10 8:34am Advance Directive Response Recorded Date/ Time Living Will No August 10 7:34am Power of Weatherseal Technician No August 10 7:34am Advance Directive Response Recorded Date/ Time Living Will No November 19, 2022 12:38am Power of Weatherseal Technician No November 19 12:38am Advance Directive Response Recorded Date/ Time Do you have a Healthcare Power of Weatherseal Technician? No April 13, 2025 9:16am Chief Complaint and Reason for Visit Chief Complaint FOREIGN BODY Chief Complaint Admit Date [address]/e orders & paper December 6:39am Chief Complaint Admit Date [address]s/e orders & paper December 6:39am nausea April 13, 2025 7:16am Additional Source Comments (unrecognized sect ion and content) No Status Records FoundNo Status Records Found INFORMATION SOURCE (unrecogn ized section and content) DATE CREATED AUTHOR 07/24/2019 [facility] DATE CREATED AUTHOR AUTHOR'S ORGANIZ ATION 04/16/2025 [facility] Goals (unrecognized section and content) Goals may [...] Status: Active Member Role Status Dates Dr. Bcuk Cardenas MD Family Provider Active Dr. Radha [...] January 02, 2025 End: January 02, 2025 Maggie Alexander NP-C Attending Provider Active St art: January 02, 2025 End: January 02, 2025 Maggie Alexander NP-Mary Referring Provider Active St art: January 02, 2025 End: January 02, 2025 Johnathon Villegas NP, [employer]-C Other Provider Active Start : January 02, 2025 End: January 02, 2025 Team Status: Active Member Role/Relationship Status Dates Dr. Radha Ken DO Primary Care Provider Active Team Status: Inactive Member Role/Relationship Status Dates Dr. Radha Ken DO Primary Care Provider Active Start: January 02, 2025 End: January 02, 2025 Maggie Alexander NP-C Attending Provider Active St art: January 02, 2025 End: January 02, 2025 Maggie Alexander NP-Mary Referring Provider Active St art: January 02, 2025 End: January 02, 2025 Johnathon Villegas NP, [employer]-C Other Provider Active Start : January 02, 2025 End: January 02, 2025 Team Status: Inactive Member Role/Relationship Status Dates Dr. Radha Ken DO Primary Care Provider Active Start: April 13, 2025 End: April 13, 2025 Fernando Menendez MD Emergency Provider Active Star t: April 13, 2025 End: April 13, 2025 FOR RECORDS PERTAINING TO PATIENTS WHO [...] BE BASED ON THE PRIMARY CLINICAL RECORDS. [facility]. provides no warranty or guarantee of the accuracy or completeness of information in this document.
== END | disposition home or self-care (01) ==
LOC: RAD 09:20
PROVIDERS: PCP Family Medicine; Referring Provider Nurse Practitioner Family; Visit Provider Nurse Practitioner Family
DX: M54.50 Low back pain, unspecified (principal); M54.2 Cervicalgia; M54.6 Pain in thoracic spine
CPT/HCPCS: 72050; 72072; 72110